=== PATIENT | male | born 1995 | race Caucasian/White ===

== ENCOUNTER 2017-04-12 18:25 | Emergency (ER) | payer OTHER ==
[~2017-04-12] VITALS: Ht 170.2 cm; Wt 65.3 kg
[~2017-04-12 18:25] MED LIST: ATV5 PO; RISP0.5T4 PO; RSP2 PO
[2017-04-12 18:27] VITALS: TEMP 36.8; Ht 170.2 cm; Wt 65.3 kg
--- NOTE | 2017-04-12 18:47 | EMERGENCY ROOM VISIT NOTE ---
History Report prepared by Jeovanny: Jerel Torrez Under the Supervision of: Dr. Reji Kamara D.O. First contact with patient: 18:31 Chief Complaint: MENTAL HEALTH EVALUATION Stated Complaint: MENTAL HEALTH ISSUES History of Present Illness The patient is a 22 year old male who presents to the Emergency Room with complaints of worsening depression over the past 4 weeks. He states that he was seen here in October of 2015 for an attempt at hurting himself. He states that he used a scissor to cut his arm open. The patient says that he then went back to [facility] for a year, and was seen at a facility twice there. He states that he then came back to [place] in December of this year, and was fine until January, but then his depression came back and worsened. He says that over past month, his depression has been severe. The patient notes that he does not want to go down the path of wanting to hurt himself again, so he decided to come here. He says that recently, he has not done anything and has not done anything productive. He stays at home and does nothing, and even turns off his cell phone so nobody call him. 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 He adds that he has not taken a medication for depression this year. He notes that he was told to go to [facility], but chose not to go. The patient says he has no prior surgical history. He smokes cigarettes, drinks occasional alcohol, and uses marijuana. Source of History: patient Onset: Over past month Position: other (global - depression) Symptom Intensity: not doing anything Quality: other (not wanting to hurt himself currently) Timing: worsening Note: No other associated symptoms noted. Review of Systems See HPI for pertinent positives & negatives. A total of 10 systems reviewed and were otherwise negative. Past Medical & Surgical Medical Problems: (1) Mood disorder Family History Patient reports no known family medical history. Social History Smoking Status: Current Every Day Smoker Alcohol Use: occasionally Drug Use: marijuana Marital Status: single Occupation Status: [employer] student Current/Historical Medications No Active Prescriptions or Reported Meds Allergies Coded Allergies: No Known Allergies (Unverified , 04/12/17) Physical Exam Vital Signs Date Time Temp Pulse Resp B/P (MAP) Pulse Ox O2 Delivery O2 Flow Rate FiO2 04/12/17 18:27 36.8 88 18 122/76 100 Room Air Physical Exam GENERAL: Patient is awake, alert, non anxious appearing. Uncomfortable. EYES: The conjunctivae are clear. The pupils are round and reactive. EARS, NOSE, MOUTH AND THROAT: The nose is without any evidence of any deformity. Mucous membranes are moist tongue is midline NECK: The neck is nontender and supple. RESPIRATORY: Normal respiratory effort is noted there is no evidence of wheezing rhonchi or rales CARDIOVASCULAR: Regular rate and rhythm noted there no murmurs rubs or gallops normal S1 normal S2 GASTROINTESTINAL: The abdomen is soft. Bowel sounds are present in all quadrants. Abdomen is nontender MUSCULOSKELETAL/EXTREMITIES: There is no evidence of gross deformity full range of motion is noted in the hips and shoulders SKIN: There is no obvious evidence of any rash. There are no petechiae, pallor or cyanosis noted. NEUROLOGIC: Patient is awake alert and oriented x3 strength is symmetric patellar reflexes are 2+ bilaterally PSYCH: Affect was flat. Patient currently denying any homicidal or suicidal ideations. Patient does feel safe at home. Medical Decision & Procedures ED Course 1833: The patient was evaluated in room A6. A complete history and physical examination were performed. 1930: I talked to the psych correctional case manager, who says that the patient is ready to go home. He will be discharged. Medical Decision Differential diagnosis: Etiologies such as mood disorder, infection, hypoglycemia, electrolyte abnormalities, cardiac sources, intracerebral event, toxicologic, neurologic, as well as others were entertained. Medication Reconcilliation Current Medication List: was personally reviewed by me Blood Pressure Screening Patient's blood pressure: Normal blood pressure Impression Primary Impression: Depression Scribe Attestation The scribe's documentation has been prepared under my direction and personally reviewed by me in its entirety. I confirm that the note above accurately reflects all work, treatment, procedures, and medical decision making performed by me. Departure Information Dispostion Home / Self-Care Prescriptions No Active Prescriptions or Reported Meds Referrals No Doctor, Assigned (PCP) [facility] Forms HOME CARE DOCUMENTATION FORM, IMPORTANT VISIT INFORMATION, School Instructions, Work Instructions Patient Instructions Depression Causes, ED Depression, My [facility] Additional Instructions Follow-up with your therapist as scheduled. Call crisis or return to emergency department immediately if symptoms worsen or if the need arises. Problem Qualifiers Primary Impression: Depression Depression Type: unspecified Qualified Codes: F32.9 - Major depressive disorder, single episode, unspecified
[2017-04-12 20:00] VITALS: BP 105/65; PULSE 89; O2SAT 97
== END 2017-04-12 20:00 | disposition home or self-care (01) ==
LOC: C.EDB 18:26 → C.EDA 20:00
DX: F32.9 Major depressive disorder, single episode, unspecified (principal); F17.210 Nicotine dependence, cigarettes, uncomplicated

== ENCOUNTER 2019-10-21 18:05 | Inpatient (IN) ==
[2019-10-21] MEDS ORDERED: HALOPERIDOL LACTATE 5 MG/ML 1 ML VIAL IM STA (18:17)
[2019-10-21] MEDS ORDERED: LORazepam 2 MG/ML VIAL (IM USE) IM STA (18:17)
[2019-10-21] MEDS ORDERED: LORazepam 2 MG/ML VIAL (IM USE) ONE (18:20)
[2019-10-21 18:30] LABS: Appearance Urine Clear (Clear); Bilirubin Urine Negative (Negative); Blood Urine Trace (Negative); Color Urine Yellow; Glucose Urine UA Negative (Negative); Ketones Urine Trace (Negative); Leukocyte Esterase Urine Negative (Negative); Nitrite Urine Negative (Negative); Protein Urine Negative (Negative); Urobilinogen Urine Negative (Negative); pH Urine 6.5 (4.5-7.5)
[2019-10-21 18:42] LABS: Basophils # (auto) 0.03 K/uL (0-0.2); Basophils % (auto) 0.3 %; Eosinophils # (auto) 0.17 K/uL (0-0.5); Eosinophils % (auto) 1.6 %; Hematocrit (blood only) 40.5 % (42-52); Hemoglobin 13.9 g/dL (14.0-18.0); Immature Granulocytes # (auto) 0.03 K/uL (0.00-0.02); Immature Granulocytes % (auto) 0.3 %; Lymphocytes # (auto) 3.42 K/uL (1.2-3.4); Lymphocytes % (auto) 33.1 %; Mean Corpuscular Hemoglobin 29.1 pg (25-34); Mean Corpuscular Hgb Conc 34.3 g/dL (32-36); Mean Corpuscular Volume 84.9 fL (80-100); Mean Platelet Volume 10.2 fL (7.4-10.4); Monocytes # (auto) 1.19 K/uL (0.11-0.59); Monocytes % (auto) 11.5 %; Neutrophils # (auto) 5.48 K/uL (1.4-6.5); Neutrophils % (auto) 53.2 %; Platelet Count 267 K/uL (130-400); RDW Coefficient of Variation 12.6 % (11.5-14.5); RDW Standard Deviation 39.1 fL (36.4-46.3); Red Blood Count 4.77 M/uL (4.7-6.1); White Blood Count 10.32 K/uL (4.8-10.8)
[2019-10-21 18:45] LABS: Bacteria Urine Automated Negative (Negative); Cast Urine Automated 0 /lpf (0-5); Epithelial Cell Urine Auto 0-5 /lpf (0-5); RBC Urine Automated 0-4 /hpf (0-4); WBC Urine Automated 0 /hpf (0-5)
--- NOTE | 2019-10-21 18:52 | Emergency Department Note ---
Impression & Plan Psychosis, Behavior disturbance ED Provider Note Provider: Johnny Mustafa MD DATE OF SERVICE: 10/21/2019 CHIEF COMPLAINT: Mental health evaluation HISTORY OF PRESENT ILLNESS: Patient is a 24-year-old gentleman history of bipolar 1 psychosis presenting today on a 302 warrant. Patient was seen here earlier today. Petitioned by roommate. Evidently is having erratic behavior. Patient himself is agitated and asking about licenses and license to kill upon my evaluation. He is unable to give a significant additional history. Fixated and tangential in discussion. Patient is agitated upon my exam and uncooperative. Petitioning statement and friend who are available here state that when the patient got home he was at a window discussing whether this is reality or not whether he should jump out to kill himself or not. There is been some compliance issues reported with his medications. This is worsened over the last day or 2. Friend states that he is doing worse since he was brought here involuntarily. There is reported history of similar. REVIEW OF SYSTEMS: Unable obtain to his manic psychosis PAST MEDICAL HISTORY: As noted above MEDICATIONS: Reviewed the medication list available in the computer including lithium SOCIAL HISTORY: Unable obtain to his manic psychotic state PHYSICAL EXAM: GENERAL: Alert standing in the room with security speaking frantically Head: normocephalic and atraumatic EYES: No injection, discharge or icterus. ENT: Mucous membranes pink and moist. LUNGS: Airway patent. No retractions. HEART: Tachycardic rate and rhythm. SKIN: Acyanotic, warm, dry, without rashes EXTREMITIES: Without obvious swelling or deformity. NEUROLOGICAL: No focal deficits. No facial droop or slurred speech. Ambulatory. Psych: Difficult to obtain in interview. Patient is agitated and tangential. Talking about execution is not licensed to kill. I am unable to get him to answer whether he is suicidal or homicidal. Highly animated. HOSPITAL COURSE: 1811 Patient was first seen and H&P performed. Patient agitated and nonparticipant worried exam. Unable to be redirected. 2019 Patient reassessed and updated. Patient was still asking about seeing the execution her and while more calm with nonsensical and tangential. 2334 patient is been accepted to [facility] further inpatient care and involuntary admission. Patient's laboratory studies and imaging reviewed. Differential includes Mood disorder, infection, hypoglycemia, electrolyte abnormalities, cardiac sources, intracerebral event, toxicologic, trauma, neurologic, as well as other pathologies. IMPRESSION/MEDICAL DECISION MAKING: Patient presents for mental health evaluation on a 302 warrant. Patient agitated and highly tangential. Appears psychotic and unable to be redirected. To allow for examination and evaluation for both patient and staff safety received Ativan and Haldol for sedation and restraint. Medical clearance was completed. Labs were otherwise reassuring. Patient is unable to participate significantly in the exam and he states that he wants to leave. I will uphold the 302 petition especially given his history and current state. Patient is a smoker and did request the [facility] initially. They have no beds. Referral was made to [facility] and accepted there for further care. DIAGNOSIS: Psychosis, involuntary medical commitment, behavioral disturbance DISPOSITION: Psychiatric care in Critical Care I have personally spent 34 minutes of critical care time in the direct management of this patient. This includes bedside care, interpretation of diagnostic studies, and testing, discussion with consultants, patient, and family members, and other required patient management activities. These 34 minutes is in excess of all separately billable procedures. Past Med/Surg History Social History (System 10/21/19 @ 18:37 by Sherif Esteban) Feels Safe at Home: Yes Smoking Status: Current every day smoker Tobacco Type: cigarettes ; Allergies Allergies Allergy/AdvReac Type Severity Reaction Status Date / Time No Known Allergies Allergy Verified 10/21/19 18:37 Home Meds Home Medications Medication Instructions Recorded Confirmed lithium carbonate 300 mg PO BID 10/21/19 10/21/19 lithium carbonate 300 mg PO BID 10/21/19 10/21/19 risperidone 1 mg PO BID 10/21/19 10/21/19 risperidone 1 mg PO BID 10/21/19 10/21/19 Results & Data (ED) Vital Signs Vital Signs - 24 hr 10/21/19 18:07 10/21/19 23:37 Temperature 37.3 C Temperature Source Oral Pulse Rate 112 H 78 Respiratory Rate 18 20 Blood Pressure 117/74 128/86 Blood Pressure Mean 88 Pulse Oximetry 99 99 Oxygen Delivery Method Room Air Room Air Sepsis Recent Fever Within 48 Hours No Sepsis Action Taken by Nursing No Action Required Laboratory Data Result diagrams: 10/21/19 18:27 10/21/19 18:27 Lab Results 06/20/20 06/20/20 06/20/20 Range/Units 18:09 18:09 18:27 WBC 10.32 (4.8-10.8) K/uL RBC 4.77 (4.7-6.1) M/uL Hgb 13.9 L (14.0-18.0) g/dL Hct 40.5 L (42-52) % MCV 84.9 (80-100) fL MCH 29.1 (25-34) pg MCHC 34.3 (32-36) g/dL RDW Std Deviation 39.1 (36.4-46.3) fL RDW Coeff of Giselle 12.6 (11.5-14.5) % Plt Count 267 (130-400) K/uL MPV 10.2 (7.4-10.4) fL Immature Gran % (Auto) 0.3 % Neut % (Auto) 53.2 % Lymph % (Auto) 33.1 % [place] % (Auto) 11.5 % Eos % (Auto) 1.6 % Baso % (Auto) 0.3 % Immature Gran # (Auto) 0.03 H (0.00-0.02) K/uL Neut # (Auto) 5.48 (1.4-6.5) K/uL Lymph # (Auto) 3.42 H (1.2-3.4) K/uL [place] # (Auto) 1.19 H (0.11-0.59) K/uL Eos # (Auto) 0.17 (0-0.5) K/uL Baso # (Auto) 0.03 (0-0.2) K/uL Sodium (136-145) mmol/L Potassium (3.5-5.1) mmol/L Chloride (98-107) mmol/L Carbon Dioxide (21-32) mmol/L Anion Gap (3-11) BUN (7-18) mg/dl Creatinine (0.6-1.4) mg/dl Est Cr Clr Drug Dosing ml/min Est GFR ( Amer) Est GFR (Non-Af Amer) BUN/Creatinine Ratio (10-20) Glucose (70-99) mg/dl Calcium (8.5-10.1) mg/dl Total Bilirubin (0.2-1) mg/dl AST (15-37) U/L ALT (12-78) U/L Alkaline Phosphatase (45-117) U/L Total Protein (6.4-8.2) gm/dl Albumin (3.4-5.0) gm/dl Globulin (2.5-4.0) gm/dl Albumin/Globulin Ratio (0.9-2) TSH (0.300-4.500) uIu/ml Urine Color Yellow Urine Appearance Clear (Clear) Urine pH 6.5 (4.5-7.5) Ur Specific [place] 1.010 (1.000-1.030) Urine Protein Negative (Negative) Urine Glucose (UA) Negative (Negative) Urine Ketones Trace H (Negative) Urine Blood Trace H (Negative) Urine Nitrite Negative (Negative) Urine Bilirubin Negative (Negative) Urine Urobilinogen Negative (Negative) Ur Leukocyte Esterase Negative (Negative) Urine WBC (Auto) 0 (0-5) /hpf Urine RBC (Auto) 0-4 (0-4) /hpf U Hyaline Cast (Auto) 0 (0-5) /lpf U Epithel Cells (Auto) 0-5 (0-5) /lpf Urine Bacteria (Auto) Negative (Negative) Salicylates (2.8-20) mg/dl Urine Opiates Screen Neg (Neg) Ur Methadone, Qual Neg (Neg) Acetaminophen (10-30) ug/ml Urine Barbiturates Neg (Neg) Ur Phencyclidine (PCP) Neg (Neg) U Amphetamin/Meth Scrn Neg (Neg) MDMA (Ecstasy) Screen Neg (Neg) U Benzodiazepines Scrn Neg (Neg) [place] (0.6-1.2) mmol/L Ur Cocaine Metabolite Neg (Neg) U Marijuana (THC) Screen Neg (Neg) Ethyl Alcohol mg/dL (0-3) mg/dl 10/21/19 10/21/19 10/21/19 Range/Units 18:27 18:27 18:27 WBC (4.8-10.8) K/uL RBC (4.7-6.1) M/uL Hgb (14.0-18.0) g/dL Hct (42-52) % MCV (80-100) fL MCH (25-34) pg MCHC (32-36) g/dL RDW Std Deviation (36.4-46.3) fL RDW Coeff of Giselle (11.5-14.5) % Plt Count (130-400) K/uL MPV (7.4-10.4) fL Immature Gran % (Auto) % Neut % (Auto) % Lymph % (Auto) % [place] % (Auto) % Eos % (Auto) % Baso % (Auto) % Immature Gran # (Auto) (0.00-0.02) K/uL Neut # (Auto) (1.4-6.5) K/uL Lymph # (Auto) (1.2-3.4) K/uL [place] # (Auto) (0.11-0.59) K/uL Eos # (Auto) (0-0.5) K/uL Baso # (Auto) (0-0.2) K/uL Sodium 136 (136-145) mmol/L Potassium 3.4 L (3.5-5.1) mmol/L Chloride 103 (98-107) mmol/L Carbon Dioxide 23 (21-32) mmol/L Anion Gap 10.0 (3-11) BUN 16 (7-18) mg/dl Creatinine 1.00 (0.6-1.4) mg/dl Est Cr Clr Drug Dosing 99.0 ml/min Est GFR ( Amer) 119.9 Est GFR (Non-Af Amer) 103.4 BUN/Creatinine Ratio 16.2 (10-20) Glucose 90 (70-99) mg/dl Calcium 9.4 (8.5-10.1) mg/dl Total Bilirubin 0.9 (0.2-1) mg/dl AST 23 (15-37) U/L ALT 21 (12-78) U/L Alkaline Phosphatase 55 (45-117) U/L Total Protein 8.9 H (6.4-8.2) gm/dl Albumin 4.8 (3.4-5.0) gm/dl Globulin 4.1 H (2.5-4.0) gm/dl Albumin/Globulin Ratio 1.2 (0.9-2) TSH 1.080 (0.300-4.500) uIu/ml Urine Color Urine Appearance (Clear) Urine pH (4.5-7.5) Ur Specific [place] (1.000-1.030) Urine Protein (Negative) Urine Glucose (UA) (Negative) Urine Ketones (Negative) Urine Blood (Negative) Urine Nitrite (Negative) Urine Bilirubin (Negative) Urine Urobilinogen (Negative) Ur Leukocyte Esterase (Negative) Urine WBC (Auto) (0-5) /hpf Urine RBC (Auto) (0-4) /hpf U Hyaline Cast (Auto) (0-5) /lpf U Epithel Cells (Auto) (0-5) /lpf Urine Bacteria (Auto) (Negative) Salicylates 2.3 L (2.8-20) mg/dl Urine Opiates Screen (Neg) Ur Methadone, Qual (Neg) Acetaminophen < 2 L (10-30) ug/ml Urine Barbiturates (Neg) Ur Phencyclidine (PCP) (Neg) U Amphetamin/Meth Scrn (Neg) MDMA (Ecstasy) Screen (Neg) U Benzodiazepines Scrn (Neg) [place] 0.5 L (0.6-1.2) mmol/L Ur Cocaine Metabolite (Neg) U Marijuana (THC) Screen (Neg) Ethyl Alcohol mg/dL < 3.0 (0-3) mg/dl Administered Medications Discontinued Medications Haloperidol Lactate (Haldol) 5 mg IM NOW STA Stop: 10/21/19 18:18 Last Admin: 10/21/19 18:25 Dose: 5 mg Documented by: [id number] Lorazepam (Ativan) 2 mg IM NOW STA Stop: 10/21/19 18:18 Last Admin: 10/21/19 18:25 Dose: 2 mg Documented by: [id number] Lorazepam (Ativan) Confirm Administered Dose 2 mg .ROUTE .STK-MED ONE Stop: 10/21/19 18:21 Last Admin: 10/21/19 18:26 Dose: Not Given Documented by: [id number] Discharge Plan Visit Data Chief Complaint: Mental Health Evaluation Stated Complaint: MENTAL HEALTH EVAL ED Provider: Johnny Mustafa Discharge Problem: Psychosis, Behavior disturbance Discharge Instructions Interventions: ED Discharge Assessment Last Done: 10/21/19 23:37 Discharge Problem: Psychosis Qualifiers: Psychosis type: unspecified psychosis type Qualified Code(s): F29 - Unspecified psychosis not due to a substance or known physiological condition
[2019-10-21 18:54] LABS: Amphetamines+Metham, Urine Neg (Neg); Barbiturates, Urine Neg (Neg); Benzodiazepine, Urine Neg (Neg); Cocaine, Urine Neg (Neg); MDMA (Ecstacy), Urine Neg (Neg); Methadone, Urine Neg (Neg); Opiate, Urine Neg (Neg); Phencyclidine, Urine Neg (Neg)
[2019-10-21 19:02] LABS: Albumin Level 4.8 gm/dl (3.4-5.0); BUN Creatinine Ratio 16.2 (10-20); Calcium 9.4 mg/dl (8.5-10.1); Est GFR (African American) 119.9; Est GFR (Non-African American) 103.4; Potassium 3.4 mmol/L (3.5-5.1)
[2019-10-21 19:12] LABS: Albumin Globulin Ratio 1.2 (0.9-2); Bilirubin,Total 0.9 mg/dl (0.2-1); Globulin 4.1 gm/dl (2.5-4.0); Thyroid Stimulating Hormone 1.08 uIu/ml (0.300-4.500); Total Protein 8.9 gm/dl (6.4-8.2)
[2019-10-21 19:26] LABS: Acetaminophen < 2 ug/ml (10-30); Lithium 0.5 mmol/L (0.6-1.2); Salicylate 2.3 mg/dl (2.8-20)
[2019-10-21] MEDS ORDERED: BISMUTH SUBSALICYLATE PER ML OMNICELL CHARGE PO PRN (23:15)
[2019-10-21] MEDS ORDERED: ALUMINUM/MAGNESIUM SUSP 30 ML UDC PO PRN (23:15)
[2019-10-21] MEDS ORDERED: SODIUM CHLORIDE 0.65% NA SOLN 45 ML (OCEAN) PRN (23:15)
[2019-10-21] MEDS ORDERED: ACETAMINOPHEN 325 MG TAB PO PRN (23:15)
[2019-10-21] MEDS ORDERED: MAGNESIUM HYDROXIDE SUSP 30 ML UDC PO PRN (23:15)
[2019-10-21] MEDS ORDERED: HALOPERIDOL LACTATE 5 MG/ML 1 ML VIAL IM PRN (23:17)
[2019-10-21] MEDS ORDERED: haloperidoL 5 MG TAB PO PRN (23:17)
[2019-10-21] MEDS ORDERED: LORazepam 2 MG/ML VIAL (IM USE) IM PRN (23:18)
[2019-10-21] MEDS ORDERED: BENZTROPINE MESYLATE 1 MG TAB PO PRN (23:21)
[2019-10-22] MEDS: LORazepam 1 MG TAB PO PRN (08:03)
[2019-10-22] MEDS ORDERED: NICOTINE 7 MG/24 HR TDSY TD SCH (09:00)
--- NOTE | 2019-10-22 09:11 | History & Physical ---
Date of Service October 22, 2019 Impression / Recommendations Impression 24-year-old male admitted involuntarily for inpatient psychiatric treatment on 10/21/2019 after presenting to the ED with disorganized thoughts and demonstrating bizarre behaviors. Friend brought patient to the ED and was safety planned home, but rapidly returned to the ED within hours. Petitioning statement was completed by friend and patient was brought to the ED on a 302 warrant. Pt initially reported minimal compliance with medication when in the ED, but lithium level was 0.5 in the ED and he is now stating he has been compliant. We discussed continuing his home medications at this time, which he was agreeable with and has already willingly taking lithium without incident. Will attempt to gather collateral information from his outpatient psychiatric provider and the [facility] where he was most recently hospitalized. It would be ideal for patient to be on an ALCALA given history of noncompliance, and we will explore the possibility of this further. Once appropriate to participate, patient will be encouraged to attend group programming. We will engage patient in meetings with Student Care and Advocacy to discuss academic standing. Pt would benefit again from a casework manager, as he had these services in the past. Pt remains very disorganized, tangential, and is demonstrating looseness of association. His manic behavior increases his risk of harm to self and others, and inpatient psychiatric treatment is medically necessary at this time. Dr. Barb Root was directly involved in review and discussion of the patient's case and participated in medical decision making regarding treatment recommendations. (1) Bipolar disorder, current episode manic severe with psychotic features: 10/21 - Diagnosis of bipolar I disorder, most recently prescribed risperidone 1mg BID and lithium 300mg BID. Pt admits to poor compliance with medications, though lithium level in ED was 0.5 which demonstrates some level of medication administration. Will resume these medications initially, recheck lithium level in 5 days. Will have risperidone 0.5mg available q4h prn for psychosis/agitation. - Pt demanding to leave, stating he does not need to be here. He is very disorganized at this time and demonstrating looseness of associations. - Admitted involuntarily for psychiatric treatment - 302 expires on 10/26/2019 at 1933 - Coordinate care with outpatient providers; medications most recently prescribed at [place] by Tari Brasher PA-C - Coordinate with the [facility] and patient's friend to gather collateral information - Will encourage attendance of group programming once patient is able to demonstrate appropriateness (2) Nonadherence to medication: 10/21 - Resume doses of home medications - Pt would be an ideal candidate for an ALCALA - Recommend referral for case management services given significant mental health history and frequent hospitalizations (3) Cannabis abuse: 10/21 - Historical diagnosis of cannabis abuse, though patient states he has not smoked cannabis in 2-3 months - UDS negative for THC in the ED Risk Factors Assessment Male: Yes Mental Health Diagnoses: Yes Substance Use Disorders: Yes Previous Psychiatric Hospitalization: Yes Smoker: Yes Protective Factors Assessment : No Responsible for Young Children: No Employed: No Supportive Family: No (living in [facility]) Psychiatric History Identifying Data NOMAN MOMIN is a 24-year-old M who currently lives in [place] in close proximity to a friend. Pt was brought to the ED earlier in the day, and was safety planned home with a friend. Pt has a history of bipolar disorder with history of poor medication compliance, and was admitted on 10/21/19 23:15 on a 302 involuntary commitment for disorganized thoughts and mitra, having reportedly verbalizing to his friend that he was considering whether or not to jump from a window. Chief Complaint "I do what I am doing. 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 Patient presented to the ED the day of admission with a close friend reporting concerns related to patient's bizarre behavior. Despite verbalizing concern, this friend was unwilling to complete a petitioning statement and the patient was unwilling to remain in the hospital or consider psychiatric treatment. As there was discrepancy between the patient's report and the reports of this friend, patient was ultimately safety plan home with this friend. ED documentation suggests the patient had verbalized thoughts to jump from a window when he returned home, contemplating whether or not he should kill himself. Friend was again concerned with this behavior and patient returned to the ED on a 302 warrant. Pt was reportedly agitated in the ED and did receive haloperidol and lorazepam. He is reportedly irritable and loud on our unit this morning and is reportedly demonstrating inappropriate boundaries. Pt had difficulty with psychiatric evaluation, as he continues to be tangential and demonstrates loose associations. He begins our conversation by telling this provider "I do what I am doing. I feel like a hypocrite." When asked why he feels this way, the patient begins talking about the Beatles and [employer]anning [employer], reporting that [place] was killed by someone from his fan club and inquires "why would someone from his fan club murder him?" Pt then begins speaking about the Catcher in the [place], and becomes rather frustrated stating "what is the rye? I don't know what the rye is." This provider informed the patient that is sounded as though he was experiencing some deep thoughts and wondered if these two ideas were related. The patient responded with "I try to solve problems of existential crisis. I know the difference between transcendentalism and existentialism." He then abruptly changes the subject and asks, "Why are you doing this? You know this is torture for me. I don't want to commit suicide. Do I look like someone who wants to commit suicide. I did not leave a note. I've learned all my life lessons from [place]. If there is light in your life, you follow it." Pt was asked if he believes he is having difficulty keeping his thoughts straight, and rapidly responds by stating "I am straight!" Pt begins talking about feeling uncomfortable, and then compares himself to bunnies - "Bunny scared, eats grass, jumps. Bunny scared, eats grass, jumps. Bunny scared, eats grass jumps. Bunny likes grass, I given them grass, I like grass, I use it to calm my mind. Marijuana helps my thoughts." Pt states he has not smoked marijuana in 2-3 months. This provider attempted to discuss medications with the patient, who informs this provider that "I don't like lithium. It is a pure chemical on the periodic table. So is mercury. And mercury is bad. How is lithium good." He is now reporting that he is compliant with his medications "nearly all of the time." He does report feeling that "olanzapine was better" than the risperidone he was most recently prescribed, but is unable to provide any explanation as to why he feels this way, stating only "I can't say." Pt was asked about hallucinations and states "I don't see and I don't hear. I see what I see, and I hear what I hear. Then I speak, but first I smell." Pt demanded to know when he would be released, informing this provider that he is scheduled to move to a new apartment in a few days. When asked if patient had any concerns at this time, he states "I have only one concern, that I don't want to be stuck here." He denies other needs at this time. Past Psychiatric History Current Psychiatric Diagnosis: Bipolar I Disorder Outpatient Services: Psychiatric Prescriber - [facility] - Tari Brasher PA-C Previous Psych Admissions: [facility] - 08/2019 [facility] - , 08/2018 and 10/2018 Previously reported 2 psychiatric hospitalizations in [facility] before coming to the in 2014 History of Previous Suicide Attempt: Yes Describe Attempts in the Past: unable to assess, from last eval he reported wrist cutting in past Past Medication Trials: Includes, but is not limited to: 1. Wahoo 2. Risperdal 3. Haldol 4. Ativan 5. Trazodone 6. Zyprexa Past Head Trauma/Neuro History History of Concussion/Seizure: No Allergies Allergy/AdvReac Type Severity Reaction Status Date / Time No Known Allergies Allergy Verified 10/21/19 18:37 Home Medications Home Medications Medication Instructions Recorded Confirmed Type lithium carbonate 300 mg PO BID 10/21/19 10/21/19 History risperidone 1 mg PO BID 10/21/19 10/21/19 History Family History Family History of: Doesn't Know Family Mental Health History Comment: unable to assess at this time due to patients cognitive status Alcohol History Hx of Alcohol Use Over the Past 12 Months: Yes (1x weekly) Smoking Use Have You Smoked or Used Tobacco Products in the Last 30 Days: Yes tobacco type: cigarettes Smoking Status: Current every day smoker Smoking packs per day: 0.25 Substance History Hx of Prescription Med Misuse Over the Past 12 Months: No Hx of Over the Counter Med Misuse Over the Past 12 Months: No Hx of Inhalent Misuse Over the Past 12 Months: No Hx of Organic Substance Use Over the Past 12 Months: No Hx of Illegal Substances/Street Drug Use Over Past 12 Months: No Problems as a Result of Past Substance Use: None Identified UDS negative. Pt reports history of marijuana and cocaine, last used marijuana 2-3 months ago. Personal History Living Arrangements: Apartment Highest Grade Completed: Graduate School Employment Status: Student Marital Status: Single Number Of Children: None Hx Legal Problems: Yes (incarcerated for 2 days, broke into friend's apartment ) Patient History Medical History Bipolar disorder, current episode manic severe with psychotic features Surgical History No pertinent past surgical history Social History Preferred Language: [place] Communication Ability: Effective Feels Safe at Home: Yes Smoking Status: Current every day smoker Tobacco Type: cigarettes ; Review of Systems Review of Systems: Constitutional: denied Cardiovascular: denied Respiratory: denied Gastrointestinal: denied Genitourinary: reports "gentlemen problems", inability to obtain erection Neurological: denied Musculoskeletal: reports low back pain Psychiatric: denies symptoms other than stated above Total of at least 10 systems reviewed, pertinent positives as above and in HPI. Physical Exam Psychiatric: Orientation: alert, oriented to person, oriented to place and + guarded (uncooperative and argumentative ) Apperance: appropriately dressed, + disheveled and appeared stated age Thin-appearing male, casually dressed in a t-shirt and scrub pants. Pt Eye Contact: + fair eye contact Motor Behavior: + psychomotor agitation (appearing restless) Speech: + pressured speech (rapid, angry tone - thick accent) Affect: + irritable affect and mood congruent with affect Mood: + angry mood Thought Process: + tangential thought process, + flight of ideas, + looseness of associations and + perseveration Thought Content: + preoccupation (with discharge, feels he was wrongfully admitted ) and + persecution Suicidal Thoughts: denies suicidal thoughts and denies suicidal intent Homicidal Thoughts: denies homicidal thoughts Hallucinations: no auditory hallucinations and no visual hallucinations Cognition: language grossly intact; + recent memory not intact and + attention not intact Estimated Intelligence: consistent with education level Insight: + impaired insight Judgement: + impaired judgement Vital Signs (Past 24 Hours): Last Vital Signs Temp 36.5 C 10/22/19 06:30 Pulse 85 10/22/19 06:31 Resp 18 10/22/19 06:30 BP 117/80 10/22/19 06:31 Pulse Ox 99 10/21/19 23:37 Exam Statement: A physical exam was performed in the ER prior to admission to the unit by Dr. Johnny Mustafa MD. I accept that physical as correct/medical clearance for the inpatient physical exam. Results & Data ([facility]) Laboratory Results Laboratory Results - last 24 hr 10/21/19 10/21/19 10/21/19 18:09 18:09 18:27 WBC 10.32 RBC 4.77 Hgb 13.9 L Hct 40.5 L MCV 84.9 MCH 29.1 MCHC 34.3 RDW Std Deviation 39.1 RDW Coeff of Giselle 12.6 Plt Count 267 MPV 10.2 Immature Gran % (Auto) 0.3 Neut % (Auto) 53.2 Lymph % (Auto) 33.1 Shelby % (Auto) 11.5 Eos % (Auto) 1.6 Baso % (Auto) 0.3 Immature Gran # (Auto) 0.03 H Neut # (Auto) 5.48 Lymph # (Auto) 3.42 H Shelby # (Auto) 1.19 H Eos # (Auto) 0.17 Baso # (Auto) 0.03 Sodium Potassium Chloride Carbon Dioxide Anion Gap BUN Creatinine Est Cr Clr Drug Dosing Est GFR ( Amer) Est GFR (Non-Af Amer) BUN/Creatinine Ratio Glucose Calcium Total Bilirubin AST ALT Alkaline Phosphatase Total Protein Albumin Globulin Albumin/Globulin Ratio TSH Urine Color Yellow Urine Appearance Clear Urine pH 6.5 Ur Specific Arnot 1.010 Urine Protein Negative Urine Glucose (UA) Negative Urine Ketones Trace H Urine Blood Trace H Urine Nitrite Negative Urine Bilirubin Negative Urine Urobilinogen Negative Ur Leukocyte Esterase Negative Urine WBC (Auto) 0 Urine RBC (Auto) 0-4 U Hyaline Cast (Auto) 0 U Epithel Cells (Auto) 0-5 Urine Bacteria (Auto) Negative Salicylates Urine Opiates Screen Neg Ur Methadone, Qual Neg Acetaminophen Urine Barbiturates Neg Ur Phencyclidine (PCP) Neg U Amphetamin/Meth Scrn Neg MDMA (Ecstasy) Screen Neg U Benzodiazepines Scrn Neg Wahoo Ur Cocaine Metabolite Neg U Marijuana (THC) Screen Neg Ethyl Alcohol mg/dL 10/21/19 10/21/19 10/21/19 18:27 18:27 18:27 WBC RBC Hgb Hct MCV MCH MCHC RDW Std Deviation RDW Coeff of Giselle Plt Count MPV Immature Gran % (Auto) Neut % (Auto) Lymph % (Auto) Shelby % (Auto) Eos % (Auto) Baso % (Auto) Immature Gran # (Auto) Neut # (Auto) Lymph # (Auto) Shelby # (Auto) Eos # (Auto) Baso # (Auto) Sodium 136 Potassium 3.4 L Chloride 103 Carbon Dioxide 23 Anion Gap 10.0 BUN 16 Creatinine 1.00 Est Cr Clr Drug Dosing 99.0 Est GFR ( Amer) 119.9 Est GFR (Non-Af Amer) 103.4 BUN/Creatinine Ratio 16.2 Glucose 90 Calcium 9.4 Total Bilirubin 0.9 AST 23 ALT 21 Alkaline Phosphatase 55 Total Protein 8.9 H Albumin 4.8 Globulin 4.1 H Albumin/Globulin Ratio 1.2 TSH 1.080 Urine Color Urine Appearance Urine pH Ur Specific Arnot Urine Protein Urine Glucose (UA) Urine Ketones Urine Blood Urine Nitrite Urine Bilirubin Urine Urobilinogen Ur Leukocyte Esterase Urine WBC (Auto) Urine RBC (Auto) U Hyaline Cast (Auto) U Epithel Cells (Auto) Urine Bacteria (Auto) Salicylates 2.3 L Urine Opiates Screen Ur Methadone, Qual Acetaminophen < 2 L Urine Barbiturates Ur Phencyclidine (PCP) U Amphetamin/Meth Scrn MDMA (Ecstasy) Screen U Benzodiazepines Scrn Wahoo 0.5 L Ur Cocaine Metabolite U Marijuana (THC) Screen Ethyl Alcohol mg/dL < 3.0 Current Inpatient Medications Current Inpatient Medications: Current Inpatient Medications Acetaminophen (Tylenol) 650 mg PO Q4H PRN PRN Reason: Headache or Minor Fever Stop: 11/20/19 23:14 Al Hydrox/Mg Hydrox/Simethicone (Maalox) 30 ml PO Q4H PRN PRN Reason: GI Upset Stop: 11/20/19 23:14 Benztropine Mesylate (Cogentin) 1 mg PO Q6H PRN PRN Reason: dystonia Stop: 11/20/19 23:20 Bismuth Subsalicylate (Kaopectate) 15 ml PO PRN PRN PRN Reason: Loose Stool Stop: 11/20/19 23:14 Haloperidol (Haldol) 5 mg PO Q4H PRN PRN Reason: agitation r/t psychosis Stop: 11/20/19 23:16 Last Admin: 10/22/19 08:03 Dose: 5 mg Documented by: Haloperidol Lactate (Haldol) 5 mg IM Q4H PRN PRN Reason: Agitation Stop: 11/20/19 23:16 Hydroxyzine HCl (Vistaril) 50 mg PO HSZ PRN PRN Reason: Insomnia Stop: 11/20/19 23:14 Hydroxyzine HCl (Vistaril) 25 mg PO Q4H PRN PRN Reason: Anxiety Stop: 11/20/19 23:14 Lorazepam (Ativan) 2 mg IM Q4H PRN PRN Reason: Agitation Stop: 11/20/19 23:17 Lorazepam (Ativan) 1 mg PO Q4H PRN PRN Reason: Anxiety/Agitation Stop: 11/20/19 23:19 Last Admin: 10/22/19 08:03 Dose: 1 mg Documented by: Magnesium Hydroxide (Milk Of Magnesia) 30 ml PO DAILY PRN PRN Reason: Constipation Stop: 11/20/19 23:14 Miscellaneous (Remove Nicoderm Patch) 1 ea N/A DAILY@[id number] [facility] Stop: 11/22/19 08:58 Nicotine (Nicoderm Cq) 7 mg TD QAM [facility] Stop: 11/21/19 08:59 Nicotine Polacrilex (Nicorette 2mg) 1 piece MT Q1H PRN PRN Reason: Nicotine Withdrawal Stop: 11/21/19 08:40 Sodium Chloride ([place] Nasal) 1 - 2 sprays NA PRN PRN PRN Reason: Nasal Dryness/Congestion Stop: 11/20/19 23:14
[2019-10-22] MEDS ORDERED: risperiDONE 0.5 MG TABLET PO PRN (09:14)
[2019-10-22] MEDS: LITHIUM CARBONATE 300 MG TAB PO SCH ×2 (10:33→21:18)
[2019-10-22] MEDS: NICOTINE POLACRILEX 2 MG GUM MT PRN ×6 (11:35→21:20)
[2019-10-22] MEDS: risperiDONE 1 MG TABLET PO SCH (21:18)
[2019-10-23] MEDS: NICOTINE POLACRILEX 2 MG GUM MT PRN ×5 (07:05→20:33)
[2019-10-23] MEDS: LITHIUM CARBONATE 300 MG TAB PO SCH ×2 (08:44→21:50)
[2019-10-23] MEDS: risperiDONE 1 MG TABLET PO SCH ×2 (08:44→21:50)
[2019-10-23] MEDS: NICOTINE 14 MG/24 HR PATCH TD SCH ×2 (08:44→09:10)
--- NOTE | 2019-10-23 10:44 | Psychiatric Progress Note ---
Date of Service October 23, 2019 Impression / Recommendations Impression 24-year-old male admitted involuntarily for inpatient psychiatric treatment on 10/21/2019 after presenting to the ED with disorganized thoughts and demonstrating bizarre behaviors. Friend brought patient to the ED and was safety planned home, but rapidly returned to the ED within hours. Petitioning statement was completed by friend and patient was brought to the ED on a 302 warrant. Pt initially reported minimal compliance with medication when in the ED, but lithium level was 0.5 in the ED and he is now stating he has been compliant. We discussed continuing his home medications at this time, which he was agreeable with and has already willingly taking lithium without incident. Will attempt to gather collateral information from his outpatient psychiatric provider and the [facility] where he was most recently hospitalized. It would be ideal for patient to be on an [facility] given history of noncompliance, and we will explore the possibility of this further. Once appropriate to participate, patient will be encouraged to attend group programming. We will engage patient in meetings with Student Care and Advocacy to discuss academic standing. Pt would benefit again from a rn case mgr, as he had these services in the past. Pt remains very disorganized, tangential, and is demonstrating looseness of association. His manic behavior increases his risk of harm to self and others, and inpatient psychiatric treatment is medically necessary at this time. (1) Bipolar disorder, current episode manic severe with psychotic features: 10/21 - Diagnosis of bipolar I disorder, most recently prescribed risperidone 1mg BID and lithium 300mg BID. Pt admits to poor compliance with medications, though lithium level in ED was 0.5 which demonstrates some level of medication administration. Will resume these medications initially, recheck lithium level in 5 days. Will have risperidone 0.5mg available q4h prn for psychosis/agitation. - Pt demanding to leave, stating he does not need to be here. He is very disorganized at this time and demonstrating looseness of associations. - Admitted involuntarily for psychiatric treatment - 302 expires on 10/26/2019 at 1933 - Coordinate care with outpatient providers; medications most recently prescribed at [facility] by Tari Brasher PA-C - Coordinate with the University and patient's friend to gather collateral information - Will encourage attendance of group programming once patient is able to demonstrate appropriateness 10/22 - continue risperdal and lithium as above with prn haldol as above, [place] level ordered for 10/27/19. Agree with Consideration with [facility] but patient is not able to tolerate that discussion at this time. - pt is on 302 comittment, treatment team and by evaluation LOS estimated to be 7-9days, 302 expires 10/26/19 at 1933, will file for 303 hearing form AM of 10/26/19 as he remains illogical, agitated and unable to function in the community, unable to address safety risks that lead to hospitalization leaving inpatient care as the least restrictive and most appropriate level of care at this time, continue MNPR due to level of agitation and intrusiveness requiring consistent redirection of interpersonal space boundaries - coordinated care with outpt providers, and university, - waiting records from [facility] to see if Fasting metabolic labs more recent than 08/2017 are available, if not FBS and FLipids will need ordered prior to discharge, ideally could be added to 10/27/19 labs if not before (2) Nicotine dependence: 10/22 - continue to offer NRT in form of patch and gum. Patient is pre- contemplational and declines smoking cessation resources at this time. for note he has h/o MJ abuse but UDS negative in ED and he states he has not smoked in 2-3 months, carried forward in this note for future provider knowledge. No action needed at this time. Risk Factors Assessment Male: Yes Mental Health Diagnoses: Yes Substance Use Disorders: Yes Previous Psychiatric Hospitalization: Yes Smoker: Yes Protective Factors Assessment : No Responsible for Young Children: No Employed: No Supportive Family: No (living in [facility]) Interval History Identifying Information ZAY MOMIN is a 24-year-old M who currently lives in [place] in close proximity to a friend. Pt was brought to the ED earlier in the day 10/21/19, and was safety planned home with a friend. Pt has a history of bipolar disorder with history of poor medication compliance, and returned to the ED and admitted on 10/21/19 23:15 on a 302 involuntary commitment for disorganized thoughts and mitra, having reportedly verbalizing to his friend that he was considering whether or not to jump from a window. Chief Complaint "I am needing to smoke and I do not want your gum". Review of Systems Sleep Information Total Hours of Sleep: 4 Sleep Comments: awake at 0300 to get a drink of water and 0425 to get somehting crunchy to eat. he remains to state he wants to leave-he does not need to be here-he has to pack his belongings for moving. Meal Information Percent Meal Consumed - Breakfast: 90 Percent Meal Consumed - Lunch: 50 Percent Meal Consumed - Dinner: 100 Subjective Subjective Patient was seen & assessed and interval progress reviewed with treatment team first. He slept poorly 4 hours up at 445am and not sleeping since. He did take medications last evening and this AM (lithium and Risperdal) but remains agitated moving around the unit walking at times, going back to his room and then to the day room. He is unable to tolerate being in groups becoming tangential with an agitated tone. He remains in a MNPR in the [place] area to allow him space for less stimuli. The patient remains disrupted and scattered when he tries to participate in discussion with staff or in groups. He is to speak with his father in [place] sometime this AM. Met with patient alone first, then at his request with the treatment team to present his Treatment Plan. He agrees to meet in his room first sitting then as he talks about his wish to smoke he spits out his nicotine gum and stands and begins to point his finger as he talks passionately about his wish to smoke and begins to slowly during his soliloquy stand over this provider. He is verbally redirected to move back, but repeats the movement and is redirected but several times to provide space for interpersonal comfort and sense of safety of this provider. He is able to express that he does not agree that he is "incarcerated" in this hospital and that he wanted to go to [facility] so he could take smoke breaks, then states he does not need to be in the hospital. He has some flight of ideas discussing smoking then the need to fly, to not needing treatment. When provider inserts concerns about his statements quoted on the 302 he state "I am not a danger to self, when I slit my writs 4 years ago it was to sacrifice my soul." he cannot tolerate this conversation seeming to become stuck in semantics of his friend's place being called and apartment vs. a "flat" and missing the concern that he was there uninvited, and not addressing the suicidal statements in question He then asks if he can walk around the unit, 'I need to walk while I think...I need something between my eyes on my forehead when I walk and think. I have a unibrow (pointing to his) and you do not." He is unable to discuss difficulties he is having sleeping "I sleep enough" nor is he able to discuss how it feels to try to attend groups. He states "If I don't get to smoke I will kill myself" and several statements about "breaking out of here." With treatment team meeting held also in his room (due to activity room in use by rest of [facility]) he perseverates on wanting to be at the [facility] but then becomes circular in wanting to be there, not in any hospital and not being here. He is adamant he is against being in the hospital. He was informed of his treatment plan reviewed from paper version to include verbally informed that we would be pursuing 303. He is distressed at this and states "I don't want a hearing" and references "a year ago when I jumped off the roof," but does not provide further context for that thought. He does affirm he would like social work to pursue JOEL and possible referral to the [facility]. He does state he is not having stiffness or s/sx of EPS or orthostasis or tremor, Denies feeling drowsy, denies physical pain. He demonstrates his physical agility and wellbeing by jumping up from his bed and jumping up and down 3-4 times and states "you see." He is eating and states he is having regular bowel movements. Physical Exam Psychiatric Orientation: alert, oriented to place and oriented to time he attempts to cooperate but shows some quickness to escalation of tone and physical proximity dressed in t-shirt and hospital scrub pants, hair is clean but uncombed Eye Contact: good eye contact Motor Behavior: + psychomotor agitation (stands, sits then walks around at times wagging his finger towards provider) at times he slowly advances while talking to stand overprovider within 1-2 feet of provider who is sitting voluble speech that he will continue talking unless redirected, he can be redirected for a few moments then derails tangentially again. His speech is spont of regular but persistent rate, rythm, has Palestinian accent, tone ranges from calm to one of agitated pronouncements he is modestly irritable in the form of reactive pronouncements when he dislikes something, but can be calm when talking elevated, expansive modestly irritated mood Thought Process: + tangential thought process, + flight of ideas and + perseveration He does note express delusions or IOR or AVH today but does seem illogical and perseverative leading with affect to express his displeasure Thought Content: + preoccupation he is preoccupied with smoking, he attempts to explain his displeasure with involuntary comittment but derails in his own tangentiality to talking about smoking, outpatinet treatment, flying, taking medications, agreement to go to [facility] while also saying he does not need treatment. Content is notable for poor insight to his own behaviors and speech and tone that indicate he is intrusive and agitated manner, as well as notable for denial/minimization of the behaviors leading to admission, denying making SI statements and unwilling/unable to discuss. he denies at this time he denies at this time denies AVH at this time, does not appear to respond to internal stimuli, but thoughts are illogical and not linear limited concentration as he moves between topics, attention is fair as he remains oriented and engaged with staff when meeting this AM Estimated Intelligence: average estimated intelligence Insight: + impaired insight Judgement: + impaired judgement Vital Signs (Past 24 Hours) Last Vital Signs Temp 36.8 C 10/23/19 06:51 Pulse 99 H 10/23/19 06:52 Resp 18 10/23/19 06:51 BP 112/76 10/23/19 06:52 Pulse Ox 99 10/21/19 23:37 Results & Data ([facility]) Current Inpatient Medications Current Inpatient Medications: Current Inpatient Medications Acetaminophen (Tylenol) 650 mg PO Q4H PRN PRN Reason: Headache or Minor Fever Stop: 11/20/19 23:14 Al Hydrox/Mg Hydrox/Simethicone (Maalox) 30 ml PO Q4H PRN PRN Reason: GI Upset Stop: 11/20/19 23:14 Benztropine Mesylate (Cogentin) 1 mg PO Q6H PRN PRN Reason: dystonia Stop: 11/20/19 23:20 Bismuth Subsalicylate (Kaopectate) 15 ml PO PRN PRN PRN Reason: Loose Stool Stop: 11/20/19 23:14 Haloperidol (Haldol) 5 mg PO Q4H PRN PRN Reason: agitation r/t psychosis Stop: 11/20/19 23:16 Last Admin: 10/22/19 08:03 Dose: 5 mg Documented by: Haloperidol Lactate (Haldol) 5 mg IM Q4H PRN PRN Reason: Agitation Stop: 11/20/19 23:16 Hydroxyzine HCl (Vistaril) 50 mg PO HSZ PRN PRN Reason: Insomnia Stop: 11/20/19 23:14 Hydroxyzine HCl (Vistaril) 25 mg PO Q4H PRN PRN Reason: Anxiety Stop: 11/20/19 23:14 [place] Carbonate ([place] Carbonate) 300 mg PO BID [facility] Stop: 11/21/19 09:14 Last Admin: 10/23/19 08:44 Dose: 300 mg Documented by: Lorazepam (Ativan) 2 mg IM Q4H PRN PRN Reason: Agitation Stop: 11/20/19 23:17 Lorazepam (Ativan) 1 mg PO Q4H PRN PRN Reason: Anxiety/Agitation Stop: 11/20/19 23:19 Last Admin: 10/22/19 08:03 Dose: 1 mg Documented by: Magnesium Hydroxide (Milk Of Magnesia) 30 ml PO DAILY PRN PRN Reason: Constipation Stop: 11/20/19 23:14 Miscellaneous (Remove Nicoderm Patch) 1 ea N/A DAILY@[id number] [facility] Stop: 11/22/19 08:58 Last Admin: 10/23/19 09:10 Dose: Not Given Documented by: Nicotine (Nicoderm Cq) 14 mg TD QAM [facility] Stop: 11/22/19 08:59 Last Admin: 10/23/19 09:10 Dose: Not Given Documented by: Nicotine Polacrilex (Nicorette 2mg) 1 piece MT Q1H PRN PRN Reason: Nicotine Withdrawal Stop: 11/21/19 08:40 Last Admin: 10/23/19 09:02 Dose: 1 piece Documented by: Risperidone (Risperdal) 1 mg PO BID [facility] Stop: 11/21/19 20:59 Last Admin: 10/23/19 08:44 Dose: 1 mg Documented by: Risperidone (Risperdal) 0.5 mg PO Q4H PRN PRN Reason: psychosis Stop: 11/21/19 09:13 Sodium Chloride ([place] Nasal) 1 - 2 sprays NA PRN PRN PRN Reason: Nasal Dryness/Congestion Stop: 11/20/19 23:14 Mental Health & Subst Abuse Tx Therapist Name of Therapist: Edu Billings [facility] Core Extruder Name of Core Extruder: Not now but Carol Castanno in the past Post Discharge Appointments Primary Care Physician Name Of Family Doctor: [facility]
[2019-10-23] MEDS: LORazepam 1 MG TAB PO PRN (15:15)
[2019-10-24] MEDS: NICOTINE POLACRILEX 2 MG GUM MT PRN ×7 (07:00→19:15)
[2019-10-24] MEDS: LITHIUM CARBONATE 300 MG TAB PO SCH ×2 (08:37→21:29)
[2019-10-24] MEDS: risperiDONE 1 MG TABLET PO SCH (08:38)
[2019-10-24] MEDS: NICOTINE 14 MG/24 HR PATCH TD SCH (08:40)
--- NOTE | 2019-10-24 12:16 | Psychiatric Progress Note ---
Date of Service October 24, 2019 Impression / Recommendations Impression 24-year-old male admitted involuntarily for inpatient psychiatric treatment on 10/21/2019 after presenting to the ED with disorganized thoughts and demonstrating bizarre behaviors. Friend brought patient to the ED and was safety planned home, but rapidly returned to the ED within hours. Petitioning statement was completed by friend and patient was brought to the ED on a 302 warrant. Pt initially reported minimal compliance with medication when in the ED, but lithium level was 0.5 in the ED and he is now stating he has been compliant. We discussed continuing his home medications at this time, which he was agreeable with and has already willingly taking lithium without incident. Will attempt to gather collateral information from his outpatient psychiatric provider and the [facility] where he was most recently hospitalized. It would be ideal for patient to be on an ALCALA given history of noncompliance, and he has agreed to trial of oral paliperidone with plan for conversion to Invega Sustenna given likely tolerability of administration and q4 week dosing being most ideal in the setting of his noncompliance with medications and appointments. Once appropriate to participate, patient will be encouraged to attend group programming. We will engage patient in meetings with Student Care and Advocacy to discuss academic standing. Pt would benefit again from a system manager, as he had these services in the past. Pt remains very disorganized, tangential, and is demonstrating looseness of association. His manic behavior increases his risk of harm to self and others, and inpatient psychiatric treatment is medically necessary at this time. (1) Bipolar disorder, current episode manic severe with psychotic features: 10/21 - Diagnosis of bipolar I disorder, most recently prescribed risperidone 1mg BID and lithium 300mg BID. Pt admits to poor compliance with medications, though lithium level in ED was 0.5 which demonstrates some level of medication administration. Will resume these medications initially, recheck lithium level in 5 days. Will have risperidone 0.5mg available q4h prn for psychosis/agitation. - Pt demanding to leave, stating he does not need to be here. He is very disorganized at this time and demonstrating looseness of associations. - Admitted involuntarily for psychiatric treatment - 302 expires on 10/26/2019 at 1933 - Coordinate care with outpatient providers; medications most recently prescribed at [place] [facility] by Tari Brasher PA-C - Coordinate with the [facility] and patient's friend to gather collateral information - Will encourage attendance of group programming once patient is able to demonstrate appropriateness 10/22 - continue risperdal and lithium as above with prn haldol as above, Howard level ordered for 10/27/19. Agree with Consideration with ALCALA but patient is not able to tolerate that discussion at this time. - pt is on 302 comittment, treatment team and by evaluation LOS estimated to be 7-9days, 302 expires 10/26/19 at 1933, will file for 303 hearing form AM of 10/26/19 as he remains illogical, agitated and unable to function in the community, unable to address safety risks that lead to hospitalization leaving inpatient care as the least restrictive and most appropriate level of care at this time, continue MNPR due to level of agitation and intrusiveness requiring consistent redirection of interpersonal space boundaries - coordinated care with outpt providers, and university, - waiting records from [facility] to see if Fasting metabolic labs more recent than 08/2017 are available, if not FBS and FLipids will need ordered prior to discharge, ideally could be added to 10/27/19 labs if not before 10/23 - Pt continues to be tangential, hyperverbal, irritable, and demonstrate poor boundaries and intrusive behavior - Fortunately, he was agreeable with pursing an ALCALA and paliperidone was discussed given likelihood of tolerability and q4 week injection schedule being most ideal with regard to patient's history of noncompliance with medications/appointments - Will hold risperidone and initiate paliperidone 3mg dose today, titrating to 6mg qAM starting tomorrow morning. Can continue prn risperidone for the time being - Pt has verbalized willingness for communication with [facility]'s Student Care and Advocacy office - He is unwilling to consider case management referral at this time - Awaiting records from the [facility] regarding more recent fasting labs - 303 hearing scheduled for 10/26/2019 - Continue MNPR (2) Nicotine dependence: 10/22 - continue to offer NRT in form of patch and gum. Patient is pre- contemplational and declines smoking cessation resources at this time. for note he has h/o MJ abuse but UDS negative in ED and he states he has not smoked in 2-3 months, carried forward in this note for future provider knowledge. No action needed at this time. 10/23 - Continues to demand transfer to the [facility] where he would be permitted to smoke - Opportunity for lateral transfer was explored and facility declined patient - He makes it very clear he has not intention to quit smoking at this time Risk Factors Assessment Male: Yes Mental Health Diagnoses: Yes Substance Use Disorders: Yes Previous Psychiatric Hospitalization: Yes Smoker: Yes Protective Factors Assessment : No Responsible for Young Children: No Employed: No Supportive Family: No (living in [facility]) Interval History Identifying Information ZAY MOMIN is a 24-year-old M who currently lives in [place] in close proximity to a friend. Pt was brought to the ED earlier in the day 10/21/19, and was safety planned home with a friend. Pt has a history of bipolar disorder with history of poor medication compliance, and returned to the ED and admitted on 10/21/19 23:15 on a 302 involuntary commitment for disorganized thoughts and mitra, having reportedly verbalizing to his friend that he was considering whether or not to jump from a window. Chief Complaint "I am in senior living. I need to go to my apartment. I am to be moving in today, so I need to go." Review of Systems Notes Constitutional: denied Cardiovascular: denied Respiratory: denied Gastrointestinal: denied Neurological: denied Psychiatric: denies symptoms other than stated above Total of at least 10 systems reviewed, pertinent positives as above and in HPI. Sleep Information Total Hours of Sleep: 7 Sleep Comments: pt was awake at 0430-he came out to the day area to get snacks and paced quietly in the rousseau areas. he went back to his room and laid in bed at 0515 and fell back to sleep on 0600 rounds but currently awake again. Meal Information Percent Meal Consumed - Breakfast: 100 Percent Meal Consumed - Lunch: 50 Percent Meal Consumed - Dinner: 0 Subjective Subjective Patient was seen & assessed and interval progress reviewed with nursing and social work. Staff report the patient has continued to be tangential, irritable, and demanding discharge. 303 hearing has been scheduled for 10/26/2019. Pt was seen today to assess progress since admission. Conversation was held after patient abruptly began conversation with this provider in the hallway, loudly expressing his perceived need to go home - "I am in senior living. I need to go to my apartment. I am to be moving in today, so I need to go." It was suggested ongoing discussion take place in patient's room, as his volume was increasing. Pt states "I was in snf for 11 days, they had me on suicide watch and I did nothing. So I am not suicidal." Pt begins to inform this provider that he has "sub-leased" and apartment for the next month, with reported intent to "think about my situation. I'm in a jumbled up problem and I don't know the solution." When asked what this problem was, the patient stated "I need to go back to [place], or decide if I am going to stay here, or go to [place]. I could go to [place], but not run off to [place]. I need to be in a University, my life needs challenges and studies." Pt continues to be focused on the fact that he feels as though he is "incarcerated." Pt repeatedly asks this provider if he is "a machine, a robot or a human being?" This provider did state that the patient is a human being, but informed him of our concern regarding his recent behavior. Pt states that he is not depressed, and that if we are interested in his psychiatric history we need to go "back to the start, back to my first doctor in [facility]. I saw them when my parents , it was hard. I did not like being labeled a child of divorce. But I do not want to talk to you about it, you talk to them." Pt shares "I am scared of my mitra, but I am not scared of my depression. I would rather be depressed than manic, when I am manic I feel like I am the jake of the world, but I am not the jake of the world." This provider again informed the patient that we are also concerned about his behavior when he becomes manic. Pt was able to refrain from interjecting long enough for this provider to explain discharge goals. He is not willing for a system manager as "I don't want someone pestering me." He is willing for injectable medications and does report interest in an ALCALA. Risks and benefits of this were discussed. Pt was agreeable with switching to paliperidone, with plan to pursue Invega Sustenna. He repeatedly denies SI, but continues to be unable to appreciate the severity of his symptoms. He repeatedly requests to be sent to the [facility], despite this provider informing him that they declined the referral already sent. He then [facility]." Pt was informed this was not the anticipated trajectory for his treatment, and after he learned that length of stay for community health hospitalization is generally months to years, he states "you send me home, I will not go there. He denied other needs or concerns today. Physical Exam Psychiatric Orientation: alert and + guarded; + uncooperative Apperance: appropriately dressed (casually, in t-shirt and scrub pants), + disheveled (hair appearing unkempt, somewhat malodorous) and appeared stated age Eye Contact: good eye contact (prolonged staring) Motor Behavior: + psychomotor agitation (appearing restless, frequent pacing) Speech: + pressured speech (hyperverbal, rapid. Thick accent) Affect: + irritable affect Mood: + angry mood; no depressed mood Thought Process: + tangential thought process, + looseness of associations and + perseveration Thought Content: + preoccupation (with discharge), + paranoid and + persecution Suicidal Thoughts: denies suicidal thoughts and denies suicidal intent Homicidal Thoughts: denies homicidal thoughts Hallucinations: no auditory hallucinations and no visual hallucinations Cognition: language grossly intact; + attention not intact Insight: + impaired insight Judgement: + impaired judgement Vital Signs (Past 24 Hours) Last Vital Signs Temp 36.3 C L 10/24/19 06:48 Pulse 81 10/24/19 06:49 Resp 18 10/24/19 06:48 BP 118/82 10/24/19 06:49 Pulse Ox 99 10/21/19 23:37 Results & Data ([facility]) Current Inpatient Medications Current Inpatient Medications: Current Inpatient Medications Acetaminophen (Tylenol) 650 mg PO Q4H PRN PRN Reason: Headache or Minor Fever Stop: 11/20/19 23:14 Al Hydrox/Mg Hydrox/Simethicone (Maalox) 30 ml PO Q4H PRN PRN Reason: GI Upset Stop: 11/20/19 23:14 Benztropine Mesylate (Cogentin) 1 mg PO Q6H PRN PRN Reason: dystonia Stop: 11/20/19 23:20 Bismuth Subsalicylate (Kaopectate) 15 ml PO PRN PRN PRN Reason: Loose Stool Stop: 11/20/19 23:14 Haloperidol (Haldol) 5 mg PO Q4H PRN PRN Reason: agitation r/t psychosis Stop: 11/20/19 23:16 Last Admin: 10/22/19 08:03 Dose: 5 mg Documented by: Haloperidol Lactate (Haldol) 5 mg IM Q4H PRN PRN Reason: Agitation Stop: 11/20/19 23:16 Hydroxyzine HCl (Vistaril) 50 mg PO HSZ PRN PRN Reason: Insomnia Stop: 11/20/19 23:14 Hydroxyzine HCl (Vistaril) 25 mg PO Q4H PRN PRN Reason: Anxiety Stop: 11/20/19 23:14 Howard Carbonate ([facility] Carbonate) 300 mg PO BID [facility] Stop: 11/21/19 09:14 Last Admin: 10/24/19 08:37 Dose: 300 mg Documented by: Lorazepam (Ativan) 2 mg IM Q4H PRN PRN Reason: Agitation Stop: 11/20/19 23:17 Lorazepam (Ativan) 1 mg PO Q4H PRN PRN Reason: Anxiety/Agitation Stop: 11/20/19 23:19 Last Admin: 10/23/19 15:15 Dose: 1 mg Documented by: Magnesium Hydroxide (Milk Of Magnesia) 30 ml PO DAILY PRN PRN Reason: Constipation Stop: 11/20/19 23:14 Miscellaneous (Remove Nicoderm Patch) 1 ea N/A DAILY@[id number] [facility] Stop: 11/22/19 08:58 Last Admin: 10/24/19 08:40 Dose: Not Given Documented by: Nicotine (Nicoderm Cq) 14 mg TD [facility] Stop: 11/22/19 08:59 Last Admin: 10/24/19 08:40 Dose: Not Given Documented by: Nicotine Polacrilex (Nicorette 2mg) 1 piece MT Q1H PRN PRN Reason: Nicotine Withdrawal Stop: 11/21/19 08:40 Last Admin: 10/24/19 09:24 Dose: 1 piece Documented by: Paliperidone (Invega) 3 mg PO ONE ONE Stop: 10/24/19 12:16 Paliperidone (Invega) 6 mg PO QAM [facility] Stop: 11/24/19 08:59 Risperidone (Risperdal) 1 mg PO BID [facility] Stop: 11/21/19 20:59 Last Admin: 10/24/19 08:38 Dose: 1 mg Documented by: Risperidone (Risperdal) 0.5 mg PO Q4H PRN PRN Reason: psychosis Stop: 11/21/19 09:13 Last Admin: 10/23/19 15:24 Dose: 0.5 mg Documented by: Sodium Chloride ([place] Nasal) 1 - 2 sprays NA PRN PRN PRN Reason: Nasal Dryness/Congestion Stop: 11/20/19 23:14 Mental Health & Subst Abuse Tx Therapist Name of Therapist: Edu Billings [facility] [employer] Around Gear Machine Operator Name of All Around Gear Machine Operator: Not now but Carol Castanon in the past Post Discharge Appointments Primary Care Physician Name Of Family Doctor: [facility]
[2019-10-24] MEDS ORDERED: PALIPERIDONE 3 MG TABCR PO ONE (12:30)
[2019-10-24] MEDS: LORazepam 1 MG TAB PO PRN (15:50)
[2019-10-25] MEDS: NICOTINE POLACRILEX 2 MG GUM MT PRN ×7 (07:06→20:51)
[2019-10-25] MEDS: LORazepam 1 MG TAB PO PRN (08:48)
[2019-10-25] MEDS: PALIPERIDONE 3 MG TABCR PO SCH (09:22)
[2019-10-25] MEDS: LITHIUM CARBONATE 300 MG TAB PO SCH ×2 (09:23→20:51)
[2019-10-25] MEDS: NICOTINE 14 MG/24 HR PATCH TD SCH (09:24)
--- NOTE | 2019-10-25 14:00 | Psychiatric Progress Note ---
Date of Service October 25, 2019 Impression / Recommendations Impression 24-year-old male admitted involuntarily for inpatient psychiatric treatment on 10/21/2019 after presenting to the ED with disorganized thoughts and demonstrating bizarre behaviors. Friend brought patient to the ED and was safety planned home, but rapidly returned to the ED within hours. Petitioning statement was completed by friend and patient was brought to the ED on a 302 warrant. Pt initially reported minimal compliance with medication when in the ED, but lithium level was 0.5 in the ED and he is now stating he has been compliant. We discussed continuing his home medications at this time, which he was agreeable with and has already willingly taking lithium without incident. Will attempt to gather collateral information from his outpatient psychiatric provider and the [facility] where he was most recently hospitalized. It would be ideal for patient to be on an ALCALA given history of noncompliance, and he has agreed to trial of oral paliperidone with plan for conversion to Invega Sustenna given likely tolerability of administration and q4 week dosing being most ideal in the setting of his noncompliance with medications and appointments. He is expressing desire to start ALCALA form of Invega. Once appropriate to participate, patient will be encouraged to attend group programming. We will engage patient in meetings with [facility] Advocacy to discuss academic standing. Pt would benefit again from a counseling case manager, as he had these services in the past. Pt remains very disorganized, tangential, and is demonstrating looseness of association. His manic behavior increases his risk of harm to self and others, and inpatient psychiatric treatment is medically necessary at this time. 303 hearing scheduled for morning of 10/25. (1) Bipolar disorder, current episode manic severe with psychotic features: 10/21 - Diagnosis of bipolar I disorder, most recently prescribed risperidone 1mg BID and lithium 300mg BID. Pt admits to poor compliance with medications, though lithium level in ED was 0.5 which demonstrates some level of medication administration. Will resume these medications initially, recheck lithium level in 5 days. Will have risperidone 0.5mg available q4h prn for psychosis/agitation. - Pt demanding to leave, stating he does not need to be here. He is very disorganized at this time and demonstrating looseness of associations. - Admitted involuntarily for psychiatric treatment - 302 expires on 10/26/2019 at 1933 - Coordinate care with outpatient providers; medications most recently prescribed at [place] by Tari Brasher PA-C - Coordinate with the University and patient's friend to gather collateral information - Will encourage attendance of group programming once patient is able to demonstrate appropriateness 10/22 - continue risperdal and lithium as above with prn haldol as above, [place] level ordered for 10/27/19. Agree with Consideration with ALCALA but patient is not able to tolerate that discussion at this time. - pt is on 302 comittment, treatment team and by evaluation LOS estimated to be 7-9days, 302 expires 10/26/19 at 1933, will file for 303 hearing form AM of 10/26/19 as he remains illogical, agitated and unable to function in the community, unable to address safety risks that lead to hospitalization leaving inpatient care as the least restrictive and most appropriate level of care at this time, continue MNPR due to level of agitation and intrusiveness requiring consistent redirection of interpersonal space boundaries - coordinated care with outpt providers, and university, - waiting records from [place] to see if Fasting metabolic labs more recent than 08/2017 are available, if not FBS and FLipids will need ordered prior to discharge, ideally could be added to 10/27/19 labs if not before 10/23 - Pt continues to be tangential, hyperverbal, irritable, and demonstrate poor boundaries and intrusive behavior - Fortunately, he was agreeable with pursing an ALCALA and paliperidone was discussed given likelihood of tolerability and q4 week injection schedule being most ideal with regard to patient's history of noncompliance with medications/appointments - Will hold risperidone and initiate paliperidone 3mg dose today, titrating to 6mg qAM starting tomorrow morning. Can continue prn risperidone for the time being - Pt has verbalized willingness for communication with [facility]'s Student Care and Advocacy office - He is unwilling to consider case management referral at this time - Awaiting records from the [facility] regarding more recent fasting labs - 303 hearing scheduled for 10/26/2019 - Continue MNPR 10/24 - continue treatment plan -ordered fasting labs since not clear when last fasting labs obtained -303 hearing scheduled for 10/26/2019 and reviewe this with pt and reviewed rationale for admission and ongoing treatment at hospital level of care being purursed (2) Nicotine dependence: 10/22 - continue to offer NRT in form of patch and gum. Patient is pre- contemplational and declines smoking cessation resources at this time. for note he has h/o MJ abuse but UDS negative in ED and he states he has not smoked in 2-3 months, carried forward in this note for future provider knowledge. No action needed at this time. 10/23 - Continues to demand transfer to the [facility] where he would be permitted to smoke - Opportunity for lateral transfer was explored and facility declined patient - He makes it very clear he has not intention to quit smoking at this time' 10/24 using nicotine gum for cravigns, not open to smoking cessation education and too manic to handle this conversation at this time Risk Factors Assessment Male: Yes Mental Health Diagnoses: Yes Substance Use Disorders: Yes Previous Psychiatric Hospitalization: Yes Smoker: Yes Protective Factors Assessment : No Responsible for Young Children: No Employed: No Supportive Family: No (living in [place]) Interval History Identifying Information ZAY MOMIN is a 24-year-old M who currently lives in [place] in close proximity to a friend. Pt was brought to the ED earlier in the day 10/21/19, and was safety planned home with a friend. Pt has a history of bipolar disorder with history of poor medication compliance, and returned to the ED and admitted on 10/21/19 23:15 on a 302 involuntary commitment for disorganized thoughts and mitra, having reportedly verbalizing to his friend that he was considering whether or not to jump from a window. Chief Complaint I feel like I am being incarcerated". Review of Systems Sleep Information Total Hours of Sleep: 6 Sleep Comments: pt awoke and had a bowl of cereal with milk. pt returned to bed independently after finishing his snack. pt appeared subdued. pt on q-15 minute checks Meal Information Percent Meal Consumed - Breakfast: 100 Percent Meal Consumed - Lunch: 100 Percent Meal Consumed - Dinner: 50 Subjective Subjective Patient was seen & assessed and interval progress reviewed with treatment team. Pt is preoccupied about not wanting to be in the hospital and having trouble understanding why he is admitted. He appears to view his disorganization in thought process as secondary to obtaining an injection in the ER. He continues to have poor boundaries and pressured speech. He is without insight into his presentation. He is expressing interest in Invega Sustenna long acting injection though and expresses tolerating Invega well and liking this medication. He complains that Risperdal had sexual s/e and reports that Invega is without that concern for him. He denied nausea, vomiting, diarrhea, constipation, shortness of breath, cough, headache or any pain or other somatic concerns. He reported to engineering technical writer that he is attending groups but views them as not relevant for him as views them as kindergarten level and feels he is being treated like a child in general ramses with having to remain in the hospital. He expressed no insight into rationale for prior hospitalizations or time in [facility]. He sought to have it explained why the doctors feel he should be in the hospital and did not seem to take in the explanation and minimized and try to rationalize away some of the aspects and examples of the presenting disorganized behaviors. He expresses aim in being complaint with attending outpt follow up appts. Physical Exam Psychiatric Orientation: alert, oriented to person, oriented to place, oriented to time and + guarded; + uncooperative Apperance: appropriately dressed (casually, in t-shirt and scrub pants), + disheveled (hair appearing unkempt, somewhat malodorous) and appeared stated age Eye Contact: good eye contact (prolonged staring) and + fair eye contact Motor Behavior: + psychomotor agitation (appearing restless, frequent pacing) Speech: + pressured speech (hyperverbal, rapid. Thick accent) Affect: + irritable affect and mood congruent with affect Mood: + angry mood; no depressed mood Thought Process: + tangential thought process, + flight of ideas, + looseness of associations and + perseveration Thought Content: + preoccupation (with discharge), + paranoid and + persecution Suicidal Thoughts: denies suicidal thoughts and denies suicidal intent Homicidal Thoughts: denies homicidal thoughts Hallucinations: no auditory hallucinations and no visual hallucinations Cognition: language grossly intact; + recent memory not intact and + attention not intact Estimated Intelligence: average estimated intelligence and consistent with education level Insight: + impaired insight Judgement: + impaired judgement Vital Signs (Past 24 Hours) Last Vital Signs Temp 36.4 C L 10/25/19 06:37 Pulse 86 10/25/19 06:38 Resp 18 10/25/19 06:37 BP 100/66 10/25/19 06:38 Pulse Ox 99 10/21/19 23:37 Results & Data ([facility]) Current Inpatient Medications Current Inpatient Medications: Current Inpatient Medications Acetaminophen (Tylenol) 650 mg PO Q4H PRN PRN Reason: Headache or Minor Fever Stop: 11/20/19 23:14 Al Hydrox/Mg Hydrox/Simethicone (Maalox) 30 ml PO Q4H PRN PRN Reason: GI Upset Stop: 11/20/19 23:14 Benztropine Mesylate (Cogentin) 1 mg PO Q6H PRN PRN Reason: dystonia Stop: 11/20/19 23:20 Bismuth Subsalicylate (Kaopectate) 15 ml PO PRN PRN PRN Reason: Loose Stool Stop: 11/20/19 23:14 Haloperidol (Haldol) 5 mg PO Q4H PRN PRN Reason: agitation r/t psychosis Stop: 11/20/19 23:16 Last Admin: 10/22/19 08:03 Dose: 5 mg Documented by: Haloperidol Lactate (Haldol) 5 mg IM Q4H PRN PRN Reason: Agitation Stop: 11/20/19 23:16 Hydroxyzine HCl (Vistaril) 50 mg PO HSZ PRN PRN Reason: Insomnia Stop: 11/20/19 23:14 Hydroxyzine HCl (Vistaril) 25 mg PO Q4H PRN PRN Reason: Anxiety Stop: 11/20/19 23:14 [place] Carbonate ([place] Carbonate) 300 mg PO BID COUNTS INCLUDE 234 BEDS AT THE [facility] Stop: 11/21/19 09:14 Last Admin: 10/25/19 09:23 Dose: 300 mg Documented by: Lorazepam (Ativan) 2 mg IM Q4H PRN PRN Reason: Agitation Stop: 11/20/19 23:17 Lorazepam (Ativan) 1 mg PO Q4H PRN PRN Reason: Anxiety/Agitation Stop: 11/20/19 23:19 Last Admin: 10/25/19 08:48 Dose: 1 mg Documented by: Magnesium Hydroxide (Milk Of Magnesia) 30 ml PO DAILY PRN PRN Reason: Constipation Stop: 11/20/19 23:14 Miscellaneous (Remove Nicoderm Patch) 1 ea N/A DAILY@0859 COUNTS INCLUDE 234 BEDS AT THE [facility] Stop: 11/22/19 08:58 Last Admin: 10/25/19 09:24 Dose: Not Given Documented by: Nicotine (Nicoderm Cq) 14 mg TD QAM COUNTS INCLUDE 234 BEDS AT THE [facility] Stop: 11/22/19 08:59 Last Admin: 10/25/19 09:24 Dose: Not Given Documented by: Nicotine Polacrilex (Nicorette 2mg) 1 piece MT Q1H PRN PRN Reason: Nicotine Withdrawal Stop: 11/21/19 08:40 Last Admin: 10/25/19 13:34 Dose: 1 piece Documented by: Paliperidone (Invega) 6 mg PO QAM JANET Stop: 11/24/19 08:59 Last Admin: 10/25/19 09:22 Dose: 6 mg Documented by: Risperidone (Risperdal) 0.5 mg PO Q4H PRN PRN Reason: psychosis Stop: 11/21/19 09:13 Last Admin: 10/23/19 15:24 Dose: 0.5 mg Documented by: Sodium Chloride ([place] Nasal) 1 - 2 sprays NA PRN PRN PRN Reason: Nasal Dryness/Congestion Stop: 11/20/19 23:14 Mental Health & Subst Abuse Tx Therapist Name of Therapist: Edu Billings CAPS Box Estimator Name of Box Estimator: Not now but Carol Castanon in the past Post Discharge Appointments Primary Care Physician Name Of Family Doctor: [facility]
[2019-10-26] MEDS: NICOTINE POLACRILEX 2 MG GUM MT PRN ×8 (07:01→21:35)
[2019-10-26] MEDS: PALIPERIDONE 3 MG TABCR PO SCH (08:13)
[2019-10-26] MEDS: NICOTINE 14 MG/24 HR PATCH TD SCH (08:14)
[2019-10-26] MEDS: LITHIUM CARBONATE 300 MG TAB PO SCH ×2 (08:14→21:13)
--- NOTE | 2019-10-26 13:51 | Psychiatric Progress Note ---
Date of Service October 26, 2019 Impression / Recommendations Impression 24-year-old male admitted involuntarily for inpatient psychiatric treatment on 10/21/2019 after presenting to the ED with disorganized thoughts and demonstrating bizarre behaviors. Friend brought patient to the ED and was safety planned home, but rapidly returned to the ED within hours. Petitioning statement was completed by friend and patient was brought to the ED on a 302 warrant. Pt initially reported minimal compliance with medication when in the ED, but lithium level was 0.5 in the ED and he is now stating he has been compliant. We discussed continuing his home medications at this time, which he was agreeable with and has already willingly taking lithium without incident. Will attempt to gather collateral information from his outpatient psychiatric provider and the [facility] where he was most recently hospitalized. It would be ideal for patient to be on an ALCLAA given history of noncompliance, and he has agreed to trial of oral paliperidone with plan for conversion to Invega Sustenna given likely tolerability of administration and q4 week dosing being most ideal in the setting of his noncompliance with medications and appointments. He is expressing desire to start ALCALA form of Invega. Once appropriate to participate, patient will be encouraged to attend group programming. We will engage patient in meetings with [facility] Advoc[facility] to discuss academic standing. Pt would benefit again from a showcase maker, as he had these services in the past. Pt remains very disorganized, tangential, and is demonstrating looseness of association. His manic behavior increases his risk of harm to self and others, and inpatient psychiatric treatment is medically necessary at this time. 303 petition was granted on 10/25. Invega is being taken by pt and attmepting to obtain Invega Sustena ALCALA form of this medicaiton but first level of prior auth was declined and being processed further bey insurance currently. Invega now 6mg a day with considersation of further ttiration [place] being rx'd. (1) Bipolar disorder, current episode manic severe with psychotic features: 10/21 - Diagnosis of bipolar I disorder, most recently prescribed risperidone 1mg BID and lithium 300mg BID. Pt admits to poor compliance with medications, though lithium level in ED was 0.5 which demonstrates some level of medication administration. Will resume these medications initially, recheck lithium level in 5 days. Will have risperidone 0.5mg available q4h prn for psychosis/agitation. - Pt demanding to leave, stating he does not need to be here. He is very disorganized at this time and demonstrating looseness of associations. - Admitted involuntarily for psychiatric treatment - 302 expires on 10/26/2019 at 1933 - Coordinate care with outpatient providers; medications most recently prescribed at [facility] by Tari Brasher PA-C - Coordinate with the University and patient's friend to gather collateral information - Will encourage attendance of group programming once patient is able to demonstrate appropriateness 10/22 - continue risperdal and lithium as above with prn haldol as above, [place] level ordered for 10/27/19. Agree with Consideration with ALCALA but patient is not able to tolerate that discussion at this time. - pt is on 302 comittment, treatment team and by evaluation LOS estimated to be 7-9days, 302 expires 10/26/19 at 1933, will file for 303 hearing form AM of 10/26/19 as he remains illogical, agitated and unable to function in the community, unable to address safety risks that lead to hospitalization leaving inpatient care as the least restrictive and most appropriate level of care at this time, continue MNPR due to level of agitation and intrusiveness requiring consistent redirection of interpersonal space boundaries - coordinated care with outpt providers, and university, - waiting records from [facility] to see if Fasting metabolic labs more recent than 08/2017 are available, if not FBS and FLipids will need ordered prior to discharge, ideally could be added to 10/27/19 labs if not before 10/23 - Pt continues to be tangential, hyperverbal, irritable, and demonstrate poor boundaries and intrusive behavior - Fortunately, he was agreeable with pursing an ALCALA and paliperidone was discussed given likelihood of tolerability and q4 week injection schedule being most ideal with regard to patient's history of noncompliance with medications/appointments - Will hold risperidone and initiate paliperidone 3mg dose today, titrating to 6mg qAM starting tomorrow morning. Can continue prn risperidone for the time being - Pt has verbalized willingness for communication with [facility] office - He is unwilling to consider case management referral at this time - Awaiting records from the [facility] regarding more recent fasting labs - 303 hearing scheduled for 10/26/2019 - Continue MNPR 10/24 - continue treatment plan -ordered fasting labs since not clear when last fasting labs obtained -303 hearing scheduled for 10/26/2019 and review this with pt and reviewed rationale for admission and ongoing treatment at hospital level of care being perused 10/25 continue treatment plan continue trying to obtain ALCALA Sustenna form of Invega addressing prior Auth process of his insurance reality testing and psychoeducation of pt's dx and current symptoms consider further titration of Invega oral dose (2) Nicotine dependence: 10/22 - continue to offer NRT in form of patch and gum. Patient is pre- contemplational and declines smoking cessation resources at this time. for note he has h/o MJ abuse but UDS negative in ED and he states he has not smoked in 2-3 months, carried forward in this note for future provider knowledge. No action needed at this time. 10/23 - Continues to demand transfer to the [facility] where he would be permitted to smoke - Opportunity for lateral transfer was explored and facility declined patient - He makes it very clear he has not intention to quit smoking at this time' 10/24 using nicotine gum for cravings, not open to smoking cessation education and too manic to handle this conversation at this time Risk Factors Assessment Male: Yes Mental Health Diagnoses: Yes Substance Use Disorders: Yes Previous Psychiatric Hospitalization: Yes Smoker: Yes Protective Factors Assessment : No Responsible for Young Children: No Employed: No Supportive Family: No (living in [place]) Interval History Identifying Information ZAY MOMIN is a 24-year-old M who currently lives in [place] in close proximity to a friend. Pt was brought to the ED earlier in the day 10/21/19, and was safety planned home with a friend. Pt has a history of bipolar disorder with history of poor medication compliance, and returned to the ED and admitted on 10/21/19 23:15 on a 302 involuntary commitment for disorganized thoughts and mitra, having reportedly verbalizing to his friend that he was considering whether or not to jump from a window. 303 petition granted on am of 10/26/2019 Chief Complaint I feel like I am am being incarcerated". Review of Systems Sleep Information Total Hours of Sleep: 7 Sleep Comments: pt awoke and had a bowl of cereal with milk. pt returned to bed independently after finishing his snack. pt appeared subdued. pt on q-15 minute checks Meal Information Percent Meal Consumed - Breakfast: 100 Percent Meal Consumed - Lunch: 100 Percent Meal Consumed - Dinner: 100 Subjective Subjective Patient was seen & assessed and interval progress reviewed with treatment team Pt continues to express that he feels like he is being incarcerated and seeking discharge form the hospital. he refused to sign his treatment plan. He denied SI or HI. He denied AH or VH. He denied paranoid thinking. He denied the potential that he could be having manic symptoms currently. While he did share how manic symptoms impacted his functioning in August leading him to have charges pressed against him and having a prior inpt treatment course. He expressed lack of i nsight into his current symptoms and how pressured his speech is and how his thought process is impacted and how his judgment and behaviors have been and still are impacted by his symptoms of his bipolar d/o, while admitting he does have bipolar d/o. He is open to and seeking ALCALA form of Invega but is unable to shared what Invega might help alleviate. Pt thought processes not linear as having loosening of associations and tangential thinking occur during the assessment. He is nervous in his mood as concerned about the upcoming hearing. 303 petition was granted during 9:30am hearing Physical Exam Psychiatric Orientation: alert, oriented to person, oriented to place, oriented to time and + guarded; + uncooperative Apperance: appropriately dressed (casually, in t-shirt and scrub pants), + disheveled (hair appearing unkempt, somewhat malodorous) and appeared stated age Eye Contact: good eye contact (prolonged staring) Motor Behavior: + psychomotor agitation (appearing restless, frequent pacing) Speech: + pressured speech (hyperverbal, rapid. Thick Mac[place] accent) Affect: + anxious affect, + irritable affect and mood congruent with affect Mood: + anxious mood; no depressed mood Thought Process: + tangential thought process, + looseness of associations and + perseveration Thought Content: + preoccupation (with discharge), + paranoid and + persecution Suicidal Thoughts: denies suicidal thoughts and denies suicidal intent Homicidal Thoughts: denies homicidal thoughts Hallucinations: no auditory hallucinations and no visual hallucinations Cognition: language grossly intact; + recent memory not intact and + attention not intact Estimated Intelligence: average estimated intelligence and consistent with education level Insight: + impaired insight Judgement: + impaired judgement Vital Signs (Past 24 Hours) Last Vital Signs Temp 36.4 C L 10/26/19 06:30 Pulse 99 H 10/26/19 06:30 Resp 18 10/26/19 06:30 BP 100/69 10/26/19 06:30 Pulse Ox 99 10/21/19 23:37 Results & Data ([facility]) Current Inpatient Medications Current Inpatient Medications: Current Inpatient Medications Acetaminophen (Tylenol) 650 mg PO Q4H PRN PRN Reason: Headache or Minor Fever Stop: 11/20/19 23:14 Al Hydrox/Mg Hydrox/Simethicone (Maalox) 30 ml PO Q4H PRN PRN Reason: GI Upset Stop: 11/20/19 23:14 Benztropine Mesylate (Cogentin) 1 mg PO Q6H PRN PRN Reason: dystonia Stop: 11/20/19 23:20 Bismuth Subsalicylate (Kaopectate) 15 ml PO PRN PRN PRN Reason: Loose Stool Stop: 11/20/19 23:14 Haloperidol (Haldol) 5 mg PO Q4H PRN PRN Reason: agitation r/t psychosis Stop: 11/20/19 23:16 Last Admin: 10/22/19 08:03 Dose: 5 mg Documented by: Haloperidol Lactate (Haldol) 5 mg IM Q4H PRN PRN Reason: Agitation Stop: 11/20/19 23:16 Hydroxyzine HCl (Vistaril) 50 mg PO HSZ PRN PRN Reason: Insomnia Stop: 11/20/19 23:14 Hydroxyzine HCl (Vistaril) 25 mg PO Q4H PRN PRN Reason: Anxiety Stop: 11/20/19 23:14 [place] Carbonate ([place] Carbonate) 300 mg PO BID JANET Stop: 11/21/19 09:14 Last Admin: 10/26/19 08:14 Dose: 300 mg Documented by: Lorazepam (Ativan) 2 mg IM Q4H PRN PRN Reason: Agitation Stop: 11/20/19 23:17 Lorazepam (Ativan) 1 mg PO Q4H PRN PRN Reason: Anxiety/Agitation Stop: 11/20/19 23:19 Last Admin: 10/25/19 08:48 Dose: 1 mg Documented by: Magnesium Hydroxide (Milk Of Magnesia) 30 ml PO DAILY PRN PRN Reason: Constipation Stop: 11/20/19 23:14 Miscellaneous (Remove Nicoderm Patch) 1 ea N/A DAILY@0859 [facility] Stop: 11/22/19 08:58 Last Admin: 10/26/19 08:14 Dose: Not Given Documented by: Nicotine ([facility]oderm Cq) [facility] [place] [facility] [place] Stop: 11/22/19 08:59 Last Admin: 10/26/19 08:14 Dose: Not Given Documented by: Nicotine Polacrilex (Nicorette 2mg) 1 piece MT Q1H PRN PRN Reason: Nicotine Withdrawal Stop: 11/21/19 08:40 Last Admin: 10/26/19 13:31 Dose: 1 piece Documented by: Paliperidone (Invega) 6 [facility] [place] Stop: 11/24/19 08:59 Last Admin: 10/26/19 08:13 Dose: 6 mg Documented by: Risperidone (Risperdal) 0.5 mg PO Q4H PRN PRN Reason: psychosis Stop: 11/21/19 09:13 Last Admin: 10/23/19 15:24 Dose: 0.5 mg Documented by: Sodium Chloride ([place] Nasal) 1 - 2 sprays NA PRN PRN PRN Reason: Nasal Dryness/Congestion Stop: 11/20/19 23:14 Mental Health & Subst Abuse Tx Therapist Name of Therapist: Edu Billings [facility] Piano Mover Name of Piano Mover: Not now but Carol Castanon in the past Post Discharge Appointments Primary Care Physician Name Of Family Doctor: [facility]
[2019-10-26] MEDS: LORazepam 1 MG TAB PO PRN (22:15)
[2019-10-27] MEDS: NICOTINE POLACRILEX 2 MG GUM MT PRN ×6 (07:06→21:16)
[2019-10-27] MEDS: PALIPERIDONE 3 MG TABCR PO SCH (07:27)
[2019-10-27] MEDS: NICOTINE 14 MG/24 HR PATCH TD SCH (07:29)
[2019-10-27] MEDS: LITHIUM CARBONATE 300 MG TAB PO SCH (08:10)
[2019-10-27 08:31] LABS: Glucose Fasting 93 mg/dl (70-99)
[2019-10-27 08:38] LABS: Chol HDL Ratio 5; Cholesterol 176 mg/dl (0-200); HDL Cholesterol 38 mg/dl; LDL Cholesterol Calculated 108 mg/dl; Triglycerides 151 mg/dl (0-150); VLDL Cholesterol 30 mg/dl
[2019-10-27] MEDS ORDERED: LITHIUM CARBONATE 300 MG TAB PO ONE (12:45)
--- NOTE | 2019-10-27 15:00 | Psychiatric Progress Note ---
Date of Service October 27, 2019 Impression / Recommendations Impression 24-year-old male admitted involuntarily for inpatient psychiatric treatment on 10/21/2019 after presenting to the ED with disorganized thoughts and demonstrating bizarre behaviors. Friend brought patient to the ED and was safety planned home, but rapidly returned to the ED within hours. Petitioning statement was completed by friend and patient was brought to the ED on a 302 warrant. Pt initially reported minimal compliance with medication when in the ED, but lithium level was 0.5 in the ED and he is now stating he has been compliant. We discussed continuing his home medications at this time, which he was agreeable with and has already willingly taking lithium without incident. Will attempt to gather collateral information from his outpatient psychiatric provider and the [facility] where he was most recently hospitalized. It would be ideal for patient to be on an ALCALA given history of noncompliance, and he has agreed to trial of oral paliperidone with plan for conversion to Invega Sustenna given likely tolerability of administration and q4 week dosing being most ideal in the setting of his noncompliance with medications and appointments. He is expressing desire to start ALCALA form of Invega. Patient is now attending group programming and has improved to the degree that he is less irritable and more organized. We will engage patient in meetings with [facility] Advocacy to discuss academic standing. Pt would benefit again from a rn case management, as he had these services in the past. Pt remains very disorganized, tangential, and is demonstrating looseness of association. His manic behavior increases his risk of harm to self and others, and inpatient psychiatric treatment is medically necessary at this time. 303 petition was granted on 10/25. Invega is being taken by pt and attmepting to obtain Invega Sustena ALCALA form of this medicaiton but first level of prior auth was declined and being processed further bey insurance currently. Invega now 6mg a day with considersation of f urther ttiration [place] being rx'd and titrated in view of persistent symptoms of mitra. (1) Bipolar disorder, current episode manic severe with psychotic features: 10/21 - Diagnosis of bipolar I disorder, most recently prescribed risperidone 1mg BID and lithium 300mg BID. Pt admits to poor compliance with medications, though lithium level in ED was 0.5 which demonstrates some level of medication administration. Will resume these medications initially, recheck lithium level in 5 days. Will have risperidone 0.5mg available q4h prn for psyc hosis/agitation. - Pt demanding to leave, stating he does not need to be here. He is very disorganized at this time and demonstrating looseness of associations. - Admitted involuntarily for psychiatric treatment - 302 expires on 10/26/2019 at 1933 - Coordinate care with outpatient providers; medications most recently prescribed at [place] by Tari Brasher PA-C - Coordinate with the University and patient's friend to gather collateral information - Will encourage attendance of group programming once patient is able to demonstrate appropriateness 10/22 - continue risperdal and lithium as above with prn haldol as above, [place] level ordered for 10/27/19. Agree with Consideration with ALCALA but patient is not able to tolerate that discussion at this time. - pt is on 302 comittment, treatment team and by evaluation LOS estimated to be 7-9days, 302 expires 10/26/19 at 1933, will file for 303 hearing form AM of 10/26/19 as he remains illogical, agitated and unable to function in the com [facility], unable to address safety risks that lead to hospitalization leaving inpatient care as the least restrictive and most appropriate level of care at this time, continue MNPR due to level of agitation and intrusiveness requiring consistent redirection of interpersonal space boundaries - coordinated care with outpt providers, and [place], - waiting records from [facility] to see if Fasting metabolic labs more recent than 08/2017 are available, if not FBS and FLipids will need ordered prior to discharge, ideally could be added to 10/27/19 labs if not before 10/23 - Pt continues to be tangential, hyperverbal, irritable, and demonstrate poor boundaries and intrusive behavior - Fortunately, he was agreeable with pursing an ALCALA and paliperidone was discussed given likelihood of tolerability and q4 week injection schedule being most ideal with regard to patient's history of noncompliance with medications/appointments - Will hold risperidone and initiate paliperidone 3mg dose today, titrating to 6mg qAM starting tomorrow morning. Can continue prn risperidone for the time being - Pt has verbalized willingness for communication with [employer] office - He is unwilling to consider case management referral at this time - Awaiting records from the [facility] regarding more recent fasting labs - 303 hearing scheduled for 10/26/2019 - Continue MNPR 10/24 - continue treatment plan -ordered fasting labs since not clear when last fasting labs obtained -303 hearing scheduled for 10/26/2019 and review this with pt and reviewed rationale for admission and ongoing treatment at hospital level of care being perused 10/25 continue treatment plan continue trying to obtain ALCALA Sustenna form of Invega addressing prior Auth process of his insurance reality testing and psychoeducation of pt's dx and current symptoms consider further titration of Invega oral dose 10/26 -No progress today in terms of obtaining prior authorization for Invega Sustenna -The patient's lithium level this morning was 0.6. He continues to exhibit pressured speech and flight of ideas. Today, we offered him an extra dose 300 mg of lithium carbonate immediate release, and then increased his dose of lithium carbonate to 450 mg twice a day (extended release). -The patient admits that he has a history of opening capsules" snorting" through nasal insufflation the contents, including lithium capsules. For that reason, we are preferring to give him tablets. -The plan is to continue oral Invega 6 mg a day and to convert to the long- acting intramuscular form once it is authorized. (2) Nicotine dependence: 10/22 - continue to offer NRT in form of patch and gum. Patient is pre- contemplational and declines smoking cessation resources at this time. for note he has h/o MJ abuse but UDS negative in ED and he states he has not smoked in 2-3 months, carried forward in this note for future provider knowledge. No action needed at this time. 10/23 - Continues to demand transfer to the [facility] where he would be permitted to smoke - Opportunity for lateral transfer was explored and facility declined patient - He makes it very clear he has not intention to quit smoking at this time' 10/24 using nicotine gum for cravings, not open to smoking cessation education and too manic to handle this conversation at this time 10/26 -The patient tells us that he would like to stop smoking, but adds "probably not right now." He has been asking for his Nicorette gum on a regular basis, and does not respond to suggestions that he extend the duration between uses. Risk Factors Assessment Male: Yes Mental Health Diagnoses: Yes Substance Use Disorders: Yes Previous Psychiatric Hospitalization: Yes Smoker: Yes Protective Factors Assessment : No Responsible for Young Children: No Employed: No Supportive Family: No (living in [facility]) Interval History Identifying Information YASH MOMIN is a 24-year-old M who currently lives in [place] in close proximity to a friend. Pt was brought to the ED earlier in the day 10/21/19, and was safety planned home with a friend. Pt has a history of bipolar disorder wi th history of poor medication compliance, and returned to the ED and admitted on 10/21/19 23:15 on a 302 involuntary commitment for disorganized thoughts and mitra, having reportedly verbalizing to his friend that he was considering whether or not to jump from a window. 303 petition granted on am of 10/26/2019 Chief Complaint " I know I have bipolar disorder. I have manic episodes.". Review of Systems Sleep Information Total Hours of Sleep: 5.5 Sleep Comments: yash had received a prn of ativan at hs on the evening shift. he was awake at 0240 wanting to eat snacks as he ususlly does. he was reminded he was NPO for fasting labs-he said he had not been told. after further discussion, he drank a cup of decaff hot tea, took a prn dose of vistaril for sleep aid and fell back to sleep by 0330 Meal Information Percent Meal Consumed - Breakfast: 100 Percent Meal Consumed - Lunch: 100 Percent Meal Consumed - Dinner: 100 Subjective Subjective Patient was seen & assessed and interval progress reviewed with treatment team. I met with the patient individually in order to assess his current mental status, evaluate his response to treatment, address any issues, questions and concerns that may arise, and coordinate any necessary changes in his treatment regimen with the patient. The assessment today was challenged by the fact that the patient exhibits flight of ideas and seems unable to focus on a response to any question for more than a matter of maybe about 15 seconds before segueing into a tangentially related subject, and then onto multiple other subjects. For example, today, he began talking about how his bathroom shower does not work, and as he was describing the problem he talked about urinating in the bathtub, and segued into multiple subjects ending with the fact that he likes to moisturize his face with moisturizers before I interrupted and redirected them. The patient does say today that he realizes that he has mitra and says that he also knows that his manic episodes have led to psychosisand he can correctly identify a psychotic belief that he periodically holds when ill. Specifically, he tells me that when he becomes delusional he believes that there is a body double or doppelgnger who engages in behaviors that ended up being attributed to the patient, rather than to the doppelgnger. The patient quickly tells me that he is not currently believing that this is true and that he knows there is no such thing as "two of [him]". We reviewed the told that his illness has taken over the years in the number of spheres of endeavor, including academic, social, safety, housing, legal, physical health, and comfort. He notes that, for example, during manic episodes he impulsively spends or gives away all of his money and then is forced to sleep on the streets or, more recently, on the floor of a casino until he was ejected. He is also found himself homeless and delusional in [facility], and has had to beg for food or steal it to survive. He notes that he has had repeated academic failures and has been advised that he is in serious danger of being disenrolled from [facility]. At the same time, the patient says that he does not like medications and specifically cites sexual side effects. However, the nature of the sexual side effects seem vague. He begins by saying "I normally wake up every morning with [an erection)." When I take [psychiatric medications) I have to [masturbate) to get [an erection). I was able to get the patient to reconcile both issues; the multiple serious cost that not taking medications have caused him in his life, some of which are noted above, and the sexual side effects that he would like to not have. He wanted to discuss alternatives to medications, and wondered if he could not have his bipolar disorder "fixed" with psychotherapy. He also notes that, in the past, he responded favorably to ECT. I educated the patient regarding the likelihood that talk therapy would have a lasting, favorable influence on his bipolar disorder symptoms, at least not to the degree that he would be considered stabilized. I noted that ECT can be effective for bipolar disorder, but often would require fairly regular maintenance treatments. He was seemingly able to understand and agree when I explained to him that it looked to me as of his choice is to take psychiatric medications and put up with certain sexual side effects that may resolve with time, or lead to chaotic life marked by failures, legal problems (he was recently arrested), poverty, health compromises, and unhappiness. The patient's response was simple, "if that is the way it is then, yes, I do need to take medicine as prescribed." Physical Exam Psychiatric Orientation: alert, oriented x 3 and cooperative Apperance: appropriately dressed and appropriately groomed Eye Contact: + fair eye contact Restlessness. Speech: + pressured speech Affect: + irritable affect "I think my mood is good." Thought Process: + flight of ideas Thought Content: reality based without delusions Suicidal Thoughts: denies suicidal thoughts Homicidal Thoughts: denies homicidal thoughts Hallucinations: no auditory hallucinations and no visual hallucinations Cognition: recent memory grossly intact, remote memory grossly intact and language grossly intact; + attention not intact Estimated Intelligence: + above average estimated intelligence Insight: + limited insight Judgement: + fair judgement Vital Signs (Past 24 Hours) Last Vital Signs Temp 36.4 C L 10/27/19 07:09 Pulse 108 H 10/27/19 07:10 Resp 18 10/27/19 07:09 BP 94/57 L 10/27/19 07:10 Pulse Ox 99 10/21/19 23:37 Results & Data ([facility]) Laboratory Results Laboratory Results - last 24 hr 10/27/19 10/27/19 07:52 07:52 Fasting Glucose 93 Triglycerides 151 H Cholesterol 176 LDL Cholesterol, Calc 108 VLDL Cholesterol, Calc 30 HDL Cholesterol 38 Cholesterol/HDL Ratio 5 [place] 0.6 Current Inpatient Medications Current Inpatient Medications: Current Inpatient Medications Acetaminophen (Tylenol) 650 mg PO Q4H PRN PRN Reason: Headache or Minor Fever Stop: 11/20/19 23:14 Al Hydrox/Mg Hydrox/Simethicone (Maalox) 30 ml PO Q4H PRN PRN Reason: GI Upset Stop: 11/20/19 23:14 Benztropine Mesylate (Cogentin) 1 mg PO Q6H PRN PRN Reason: dystonia Stop: 11/20/19 23:20 Bismuth Subsalicylate (Kaopectate) 15 ml PO PRN PRN PRN Reason: Loose Stool Stop: 11/20/19 23:14 Haloperidol (Haldol) 5 mg PO Q4H PRN PRN Reason: agitation r/t psychosis Stop: 11/20/19 23:16 Last Admin: 10/22/19 08:03 Dose: 5 mg Documented by: Haloperidol Lactate (Haldol) 5 mg IM Q4H PRN PRN Reason: Agitation Stop: 11/20/19 23:16 Hydroxyzine HCl (Vistaril) 50 mg PO HSZ PRN PRN Reason: Insomnia Stop: 11/20/19 23:14 Last Admin: 10/27/19 02:53 Dose: 50 mg Documented by: Hydroxyzine HCl (Vistaril) 25 mg PO Q4H PRN PRN Reason: Anxiety Stop: 11/20/19 23:14 [place] Carbonate (Eskalith) 450 mg PO BID [facility] Stop: 11/26/19 20:59 Lorazepam (Ativan) 2 mg IM Q4H PRN PRN Reason: Agitation Stop: 11/20/19 23:17 Lorazepam (Ativan) 1 mg PO Q4H PRN PRN Reason: Anxiety/Agitation Stop: 11/20/19 23:19 Last Admin: 10/26/19 22:15 Dose: 1 mg Documented by: Magnesium Hydroxide (Milk Of Magnesia) 30 ml PO DAILY PRN PRN Reason: Constipation Stop: 11/20/19 23:14 Miscellaneous (Remove Nicoderm Patch) 1 ea N/A DAILY@[id number] [facility] Stop: 11/22/19 08:58 Last Admin: 10/27/19 07:29 Dose: Not Given Documented by: Nicotine (Nicoderm Cq) 14 mg TD [facility] Stop: 11/22/19 08:59 Last Admin: 10/27/19 07:29 Dose: Not Given Documented by: Nicotine Polacrilex (Nicorette 2mg) 1 piece MT Q1H PRN PRN Reason: Nicotine Withdrawal Stop: 11/21/19 08:40 Last Admin: 10/27/19 14:16 Dose: 1 piece Documented by: Paliperidone (Invega) [facility] [place]: 11/24/19 08:59 Last Admin: 10/27/19 07:27 Dose: 6 mg Documented by: Risperidone (Risperdal) 0.5 mg PO Q4H PRN PRN Reason: psychosis Stop: 11/21/19 09:13 Last Admin: 10/23/19 15:24 Dose: 0.5 mg Documented by: Sodium Chloride ([place] Nasal) 1 - 2 sprays NA PRN PRN PRN Reason: Nasal Dryness/Congestion Stop: 11/20/19 23:14 Mental Health & Subst Abuse Tx Therapist Name of Therapist: Edu Billings [employer] Officer Name of Armed [employer] Protection Officer: Not now but Carol Castanon in the past Post Discharge Appointments Primary Care Physician Name Of Family Doctor: [facility]
[2019-10-27] MEDS: LITHIUM CARBONATE 450 MG TABCR PO SCH (20:50)
[2019-10-28] MEDS: NICOTINE 14 MG/24 HR PATCH TD SCH (08:13)
[2019-10-28] MEDS: LITHIUM CARBONATE 450 MG TABCR PO SCH ×2 (08:14→22:00)
[2019-10-28] MEDS: PALIPERIDONE 3 MG TABCR PO SCH (08:14)
[2019-10-28] MEDS: NICOTINE POLACRILEX 2 MG GUM MT PRN ×3 (08:14→21:15)
--- NOTE | 2019-10-28 15:18 | Psychiatric Progress Note ---
Date of Service October 28, 2019 Impression / Recommendations Impression 24-year-old male admitted involuntarily for inpatient psychiatric treatment on 10/21/2019 after presenting to the ED with disorganized thoughts and demonstrating bizarre behaviors. Friend brought patient to the ED and was safety planned home, but rapidly returned to the ED within hours. Petitioning statement was completed by friend and patient was brought to the ED on a 302 warrant. Pt initially reported minimal compliance with medication when in the ED, but lithium level was 0.5 in the ED and he is now stating he has been compliant. We discussed continuing his home medications at this time, which he was agreeable with and has already willingly taking lithium without incident. Will attempt to gather collateral information from his outpatient psychiatric provider and the [facility] where he was most recently hospitalized. It would be ideal for patient to be on an ALCALA given history of noncompliance, and he has agreed to trial of oral paliperidone with plan for conversion to Invega Sustenna given likely tolerability of administration and q4 week dosing being most ideal in the setting of his noncompliance with medications and appointments. He is expressing desire to start ALCALA form of Invega. Patient is now attending group programming and has improved to the degree that he is less irritable and more organized. We will engage patient in meetings with [facility] Adv[facility] to discuss academic standing. Pt would benefit again from a bilingual patient support caseworker, as he had these services in the past. Pt remains very disorganized, tangential, and is demonstrating looseness of association. His manic behavior increases his risk of harm to self and others, and inpatient psychiatric treatment is medically necessary at this time. 303 petition was granted on 10/25. Invega is being taken by pt and attmepting to obtain Invega Sustena ALCALA form of this medicaiton but first level of prior auth was declined and being processed further bey insurance currently. Invega now 6mg a day with considersation of f urther ttiration Coquille being rx'd and titrated in view of persistent symptoms of mitra. (1) Bipolar disorder, current episode manic severe with psychotic features: 10/21 - Diagnosis of bipolar I disorder, most recently prescribed risperidone 1mg BID and lithium 300mg BID. Pt admits to poor compliance with medications, though lithium level in ED was 0.5 which demonstrates some level of medication administration. Will resume these medications initially, recheck lithium level in 5 days. Will have risperidone 0.5mg available q4h prn for psyc hosis/agitation. - Pt demanding to leave, stating he does not need to be here. He is very disorganized at this time and demonstrating looseness of associations. - Admitted involuntarily for psychiatric treatment - 302 expires on 10/26/2019 at 1933 - Coordinate care with outpatient providers; medications most recently prescribed at [facility] by Tari Brasher PA-C - Coordinate with the University and patient's friend to gather collateral information - Will encourage attendance of group programming once patient is able to demonstrate appropriateness 10/22 - continue risperdal and lithium as above with prn haldol as above, Coquille level ordered for 10/27/19. Agree with Consideration with ALCALA but patient is not able to tolerate that discussion at this time. - pt is on 302 comittment, treatment team and by evaluation LOS estimated to be 7-9days, 302 expires 10/26/19 at 1933, will file for 303 hearing form AM of 10/26/19 as he remains illogical, agitated and unable to function in the com replaced by [facility], unable to address safety risks that lead to hospitalization leaving inpatient care as the least restrictive and most appropriate level of care at this time, continue MNPR due to level of agitation and intrusiveness requiring consistent redirection of interpersonal space boundaries - coordinated care with outpt providers, and [facility]ard, - waiting records from [facility] to see if Fasting metabolic labs more recent than 08/2017 are available, if not FBS and FLipids will need ordered prior to discharge, ideally could be added to 10/27/19 labs if not before 10/23 - Pt continues to be tangential, hyperverbal, irritable, and demonstrate poor boundaries and intrusive behavior - Fortunately, he was agreeable with pursing an ALCALA and paliperidone was discussed given likelihood of tolerability and q4 week injection schedule being most ideal with regard to patient's history of noncompliance with medications/appointments - Will hold risperidone and initiate paliperidone 3mg dose today, titrating to 6mg qAM starting tomorrow morning. Can continue prn risperidone for the time being - Pt has verbalized willingness for communication with [employer] office - He is unwilling to consider case management referral at this time - Awaiting records from the [facility] regarding more recent fasting labs - 303 hearing scheduled for 10/26/2019 - Continue MNPR 10/24 - continue treatment plan -ordered fasting labs since not clear when last fasting labs obtained -303 hearing scheduled for 10/26/2019 and review this with pt and reviewed rationale for admission and ongoing treatment at hospital level of care being perused 10/25 continue treatment plan continue trying to obtain ALCALA Sustenna form of Invega addressing prior Auth process of his insurance reality testing and psychoeducation of pt's dx and current symptoms consider further titration of Invega oral dose 10/26 -No progress today in terms of obtaining prior authorization for Invega Sustenna -The patient's lithium level this morning was 0.6. He continues to exhibit pressured speech and flight of ideas. Today, we offered him an extra dose 300 mg of lithium carbonate immediate release, and then increased his dose of lithium carbonate to 450 mg twice a day (extended release). -The patient admits that he has a history of opening capsules" snorting" through nasal insufflation the contents, including lithium capsules. For that reason, we are preferring to give him tablets. -The plan is to continue oral Invega 6 mg a day and to convert to the long- acting intramuscular form once it is authorized. 10/27 -Trial clonazepam 0.5 mg p.o. nightly for antimanic effect and sleep augmentation (2) Nicotine dependence: 10/22 - continue to offer NRT in form of patch and gum. Patient is pre- contemplational and declines smoking cessation resources at this time. for note he has h/o MJ abuse but UDS negative in ED and he states he has not smoked in 2-3 months, carried forward in this note for future provider knowledge. No action needed at this time. 10/23 - Continues to demand transfer to the [facility] where he would be permitted to smoke - Opportunity for lateral transfer was explored and facility declined patient - He makes it very clear he has not intention to quit smoking at this time' 10/24 using nicotine gum for cravings, not open to smoking cessation education and too manic to handle this conversation at this time 10/26 -The patient tells us that he would like to stop smoking, but adds "probably not right now." He has been asking for his Nicorette gum on a regular basis, and does not respond to suggestions that he extend the duration between uses. Risk Factors Assessment Male: Yes Mental Health Diagnoses: Yes Substance Use Disorders: Yes Previous Psychiatric Hospitalization: Yes Smoker: Yes Protective Factors Assessment : No Responsible for Young Children: No Employed: No Supportive Family: No (living in [place]) Interval History Identifying Information YASH MOMIN is a 24-year-old M who currently lives in [place] in close proximity to a friend. Pt was brought to the ED earlier in the day 10/21/19, and was safety planned home with a friend. Pt has a history of bipolar disorder with history of poor medication compliance, and returned to the ED and admitted on 10/21/19 23:15 on a 302 involuntary commitment for disorganized thoughts and mitra, having reportedly verbalizing to his friend that he was considering whether or not to jump from a window. 303 petition granted on am of 10/26/2019 Chief Complaint "I worry for my future ". Review of Systems Sleep Information Total Hours of Sleep: 4 Sleep Comments: yash had received a prn of ativan at [facility] on the evening shift. he was awake at 0240 wanting to eat snacks as he ususlly does. he was reminded he was NPO for fasting labs-he said he had not been told. after further discussion, he drank a cup of decaff hot tea, took a prn dose of vistaril for sleep aid and fell back to sleep by 0330 Meal Information Percent Meal Consumed - Breakfast: 100 Percent Meal Consumed - Lunch: 100 Percent Meal Consumed - Dinner: 100 Subjective Subjective Patient was seen & assessed and interval progress reviewed with treatment team. Coquille increased to 450 mg twice a day on Wednesday following lithium level of 0.6. Remains compliant with oral Invega 6 mg a day. Staff report he was up ambulating overnight, appearing animated and at times demonstrating some unusual behavior such as a repeated throwing motion of the arm. Feeling worried was "smart" today on interview he is eager to talk. He asks about his medicines, i ndications, and expresses concern for future possibility of dementia associated with bipolar disorder however this conversation is extremely nonlinear. Interspersed he speaks of his keenness for studying languages to learn about people, the fact that he is multilingual, how people speaking [place] is different than our people speak in the [place], he speaks of various movies he has seen and other life experiences. I reflected that his thought process remains very fast which I attributed to his underlying bipolar disorder which he acknowledges requires treatment. Reviewed his recollection of treatment history. He recalls positive response to ECT in [place] but not eager to repeat as benefit was not sustained. I suggested we consider a sleep inducing agent such as a benzodiazepine to promote more restful sleep and slow down his thought racing and he reports a prior positive response to clonazepam in [place] which he perceived was also helpful for feelings of anxiety. He states that he constantly feels like someone is looking at him from behind which makes him uneasy. I reviewed the PDMP and no controlled medicines on record. He denies a history of benzodiazepine abuse. Physical Exam Psychiatric Orientation: alert and cooperative Apperance: + disheveled Eye Contact: good eye contact Motor Behavior: + psychomotor agitation (Mild) Speech: + pressured speech Affect: no irritable affect Mood: + anxious mood Thought Process: + tangential thought process and + flight of ideas Thought Content: + preoccupation Suicidal Thoughts: denies suicidal thoughts Homicidal Thoughts: denies homicidal thoughts Hallucinations: no auditory hallucinations and no visual hallucinations Estimated Intelligence: + above average estimated intelligence Insight: + limited insight (improving) Vital Signs (Past 24 Hours) Last Vital Signs Temp 36.4 C L 10/28/19 06:50 Pulse 74 10/28/19 06:51 Resp 18 10/28/19 06:50 BP 123/86 10/28/19 06:51 Pulse Ox 99 10/21/19 23:37 Results & Data ([facility]) Current Inpatient Medications Current Inpatient Medications: Current Inpatient Medications Acetaminophen (Tylenol) 650 mg PO Q4H PRN PRN Reason: Headache or Minor Fever Stop: 11/20/19 23:14 Al Hydrox/Mg Hydrox/Simethicone (Maalox) 30 ml PO Q4H PRN PRN Reason: GI Upset Stop: 11/20/19 23:14 Benztropine Mesylate (Cogentin) 1 mg PO Q6H PRN PRN Reason: dystonia Stop: 11/20/19 23:20 Bismuth Subsalicylate (Kaopectate) 15 ml PO PRN PRN PRN Reason: Loose Stool Stop: 11/20/19 23:14 Clonazepam (Klonopin) 0.5 mg PO HS JANET Stop: 11/27/19 21:59 Haloperidol (Haldol) 5 mg PO Q4H PRN PRN Reason: agitation r/t psychosis Stop: 11/20/19 23:16 Last Admin: 10/22/19 08:03 Dose: 5 mg Documented by: Haloperidol Lactate (Haldol) 5 mg IM Q4H PRN PRN Reason: Agitation Stop: 11/20/19 23:16 Hydroxyzine HCl (Vistaril) 50 mg PO HSZ PRN PRN Reason: Insomnia Stop: 11/20/19 23:14 Last Admin: 10/27/19 02:53 Dose: 50 mg Documented by: Hydroxyzine HCl (Vistaril) 25 mg PO Q4H PRN PRN Reason: Anxiety Stop: 11/20/19 23:14 Coquille Carbonate (Eskalith) 450 mg PO BID [facility] Stop: 11/26/19 20:59 Last Admin: 10/28/19 08:14 Dose: 450 mg Documented by: Lorazepam (Ativan) 2 mg IM Q4H PRN PRN Reason: Agitation Stop: 11/20/19 23:17 Lorazepam (Ativan) 1 mg PO Q4H PRN PRN Reason: Anxiety/Agitation Stop: 11/20/19 23:19 Last Admin: 10/26/19 22:15 Dose: 1 mg Documented by: Magnesium Hydroxide (Milk Of Magnesia) 30 ml PO DAILY PRN PRN Reason: Constipation Stop: 11/20/19 23:14 Miscellaneous (Remove Nicoderm Patch) 1 ea N/A DAILY@[id number] [facility] Stop: 11/22/19 08:58 Last Admin: 10/28/19 08:12 Dose: Not Given Documented by: Nicotine (Nicoderm Cq) 14 mg TD [facility] Stop: 11/22/19 08:59 Last Admin: 10/28/19 08:13 Dose: Not Given Documented by: Nicotine Polacrilex (Nicorette 2mg) 1 piece MT Q1H PRN PRN Reason: Nicotine Withdrawal Stop: 11/21/19 08:40 Last Admin: 10/28/19 08:14 Dose: 1 piece Documented by: Paliperidone (Invega) 6 mg PO QAM [facility] Stop: 11/24/19 08:59 Last Admin: 10/28/19 08:14 Dose: 6 mg Documented by: Risperidone (Risperdal) 0.5 mg PO Q4H PRN PRN Reason: psychosis Stop: 11/21/19 09:13 Last Admin: 10/23/19 15:24 Dose: 0.5 mg Documented by: Sodium Chloride ([place] Nasal) 1 - 2 sprays NA PRN PRN PRN Reason: Nasal Dryness/Congestion Stop: 11/20/19 23:14 Mental Health & Subst Abuse Tx Therapist Name of Therapist: Edu Billings [employer] Member Name of Air Crew Member: Not now but Carol Castanon in the past Post Discharge Appointments Primary Care Physician Name Of Family Doctor: [facility]
[2019-10-28] MEDS: clonazePAM 0.5 MG TAB PO SCH (22:00)
[2019-10-29] MEDS: LITHIUM CARBONATE 450 MG TABCR PO SCH ×2 (07:23→20:58)
[2019-10-29] MEDS: PALIPERIDONE 3 MG TABCR PO SCH (07:23)
[2019-10-29] MEDS: NICOTINE 14 MG/24 HR PATCH TD SCH (07:30)
--- NOTE | 2019-10-29 16:01 | Psychiatric Progress Note ---
Date of Service October 29, 2019 Impression / Recommendations Impression 24-year-old male admitted involuntarily for inpatient psychiatric treatment on 10/21/2019 after presenting to the ED with disorganized thoughts and demonstrating bizarre behaviors. Friend brought patient to the ED and was safety planned home, but rapidly returned to the ED within hours. Petitioning statement was completed by friend and patient was brought to the ED on a 302 warrant. Pt initially reported minimal compliance with medication when in the ED, but lithium level was 0.5 in the ED and he is now stating he has been compliant. We discussed continuing his home medications at this time, which he was agreeable with and has already willingly taking lithium without incident. Will attempt to gather collateral information from his outpatient psychiatric provider and the [facility] where he was most recently hospitalized. It would be ideal for patient to be on an ALCALA given history of noncompliance, and he has agreed to trial of oral paliperidone with plan for conversion to Invega Sustenna given likely tolerability of administration and q4 week dosing being most ideal in the setting of his noncompliance with medications and appointments. He is expressing desire to start ALCALA form of Invega. Patient is now attending group programming and has improved to the degree that he is less irritable and more organized. We will engage patient in meetings with [facility] to discuss academic standing. Pt would benefit again from a manager rn case, as he had these services in the past. Pt remains very disorganized, tangential, and is demonstrating looseness of association. His manic behavior increases his risk of harm to self and others, and inpatient psychiatric treatment is medically necessary at this time. 303 petition was granted on 10/25. Invega is being taken by pt and attmepting to obtain Invega Sustena ALCALA form of this medicaiton but first level of prior auth was declined and being processed further bey insurance currently. Invega now 6mg a day with considersation of f urther ttiration [place] being rx'd and titrated in view of persistent symptoms of mitra. (1) Bipolar disorder, current episode manic severe with psychotic features: 10/21 - Diagnosis of bipolar I disorder, most recently prescribed risperidone 1mg BID and lithium 300mg BID. Pt admits to poor compliance with medications, though lithium level in ED was 0.5 which demonstrates some level of medication administration. Will resume these medications initially, recheck lithium level in 5 days. Will have risperidone 0.5mg available q4h prn for psyc hosis/agitation. - Pt demanding to leave, stating he does not need to be here. He is very disorganized at this time and demonstrating looseness of associations. - Admitted involuntarily for psychiatric treatment - 302 expires on 10/26/2019 at 1933 - Coordinate care with outpatient providers; medications most recently prescribed at [place] by Tari Brasher PA-C - Coordinate with the University and patient's friend to gather collateral information - Will encourage attendance of group programming once patient is able to demonstrate appropriateness 10/22 - continue risperdal and lithium as above with prn haldol as above, [place] level ordered for 10/27/19. Agree with Consideration with ALCALA but patient is not able to tolerate that discussion at this time. - pt is on 302 comittment, treatment team and by evaluation LOS estimated to be 7-9days, 302 expires 10/26/19 at 1933, will file for 303 hearing form AM of 10/26/19 as he remains illogical, agitated and unable to function in the com [facility], unable to address safety risks that lead to hospitalization leaving inpatient care as the least restrictive and most appropriate level of care at this time, continue MNPR due to level of agitation and intrusiveness requiring consistent redirection of interpersonal space boundaries - coordinated care with outpt providers, and [place], - waiting records from [place] to see if Fasting metabolic labs more recent than 08/2017 are available, if not FBS and FLipids will need ordered prior to discharge, ideally could be added to 10/27/19 labs if not before 10/23 - Pt continues to be tangential, hyperverbal, irritable, and demonstrate poor boundaries and intrusive behavior - Fortunately, he was agreeable with pursing an ALCALA and paliperidone was discussed given likelihood of tolerability and q4 week injection schedule being most ideal with regard to patient's history of noncompliance with medications/appointments - Will hold risperidone and initiate paliperidone 3mg dose today, titrating to 6mg qAM starting tomorrow morning. Can continue prn risperidone for the time being - Pt has verbalized willingness for communication with [employer] office - He is unwilling to consider case management referral at this time - Awaiting records from the [facility] regarding more recent fasting labs - 303 hearing scheduled for 10/26/2019 - Continue MNPR 10/24 - continue treatment plan -ordered fasting labs since not clear when last fasting labs obtained -303 hearing scheduled for 10/26/2019 and review this with pt and reviewed rationale for admission and ongoing treatment at hospital level of care being perused 10/25 continue treatment plan continue trying to obtain ALCALA Sustenna form of Invega addressing prior Auth process of his insurance reality testing and psychoeducation of pt's dx and current symptoms consider further titration of Invega oral dose 10/26 -No progress today in terms of obtaining prior authorization for Invega Sustenna -The patient's lithium level this morning was 0.6. He continues to exhibit pressured speech and flight of ideas. Today, we offered him an extra dose 300 mg of lithium carbonate immediate release, and then increased his dose of lithium carbonate to 450 mg twice a day (extended release). -The patient admits that he has a history of opening capsules" snorting" through nasal insufflation the contents, including lithium capsules. For that reason, we are preferring to give him tablets. -The plan is to continue oral Invega 6 mg a day and to convert to the long- acting intramuscular form once it is authorized. 10/27 -Trial clonazepam 0.5 mg p.o. nightly for antimanic effect and sleep augmentation 10/28 -Tolerating clonazepam with perhaps some improvement in sleep. We will continue treatment plan unchanged as above. -Reschedule next lithium trough for October 31 which will be 5 days following last dose escalation (2) Nicotine dependence: 10/22 - continue to offer NRT in form of patch and gum. Patient is pre- contemplational and declines smoking cessation resources at this time. for note he has h/o MJ abuse but UDS negative in ED and he states he has not smoked in 2-3 months, carried forward in this note for future provider knowledge. No action needed at this time. 10/23 - Continues to demand transfer to the [facility] where he would be permitted to smoke - Opportunity for lateral transfer was explored and facility declined patient - He makes it very clear he has not intention to quit smoking at this time' 10/24 using nicotine gum for cravings, not open to smoking cessation education and too manic to handle this conversation at this time 10/26 -The patient tells us that he would like to stop smoking, but adds "probably not right now." He has been asking for his Nicorette gum on a regular basis, and does not respond to suggestions that he extend the duration between uses. Risk Factors Assessment Male: Yes Mental Health Diagnoses: Yes Substance Use Disorders: Yes Previous Psychiatric Hospitalization: Yes Smoker: Yes Protective Factors Assessment : No Responsible for Young Children: No Employed: No Supportive Family: No (living in [facility]) Interval History Identifying Information YASH MOMIN is a 24-year-old M who currently lives in [place] in close proximity to a friend. Pt was brought to the ED earlier in the day 10/21/19, and was safety planned home with a friend. Pt has a history of bipolar disorder with history of poor medication compliance, and returned to the ED and admitted on 10/21/19 23:15 on a 302 involuntary commitment for disorganized thoughts and mitra, having reportedly verbalizing to his friend that he was considering whether or not to jump from a window. 303 petition granted on am of 10/26/2019 Chief Complaint "I want to talk". Review of Systems Notes denies dizziness Sleep Information Total Hours of Sleep: 6.5 Sleep Comments: yash had received a prn of ativan at hs on the evening shift. he was awake at 0240 wanting to eat snacks as he ususlly does. he was reminded he was NPO for fasting labs-he said he had not been told. after further discussion, he drank a cup of decaff hot tea, took a prn dose of vistaril for sleep aid and fell back to sleep by 0330 Meal Information Percent Meal Consumed - Breakfast: 100 Percent Meal Consumed - Lunch: 80 Percent Meal Consumed - Dinner: 100 Subjective Subjective Patient was seen & assessed and interval progress reviewed with treatment team. Patient reportedly slept longer last evening logging about 6-1/2 hours. He appears eager to speak this morning leaving group quickly. He reports positive response to initiation of clonazepam last evening stating that he did get more "REM sleep" and felt well rested on waking this morning. He also describes feeling less anxious, however I find him more perseverative we focused on perceived injustice of confinement again today. He demonstrates some insight regarding acceptance of bipolar diagnosis and need for treatment but expresses worry that he will be rehospitalized again in the future against his well because of his diagnosis. We had a fairly lengthy discussion regarding the the rapeutic benefit of maintenance mood stabilizer medication to reduce risk for future severe depression or mitra which might impact his decisional capacity. Physical Exam Psychiatric Orientation: alert Apperance: + disheveled Eye Contact: good eye contact Motor Behavior: steady gait and station Speech: + pressured speech (Overproductive) Affect: no labile affect and no angry affect Mood: + angry mood Thought Process: + perseveration Thought Content: + preoccupation Suicidal Thoughts: denies suicidal thoughts Homicidal Thoughts: denies homicidal thoughts Hallucinations: no auditory hallucinations Cognition: recent memory grossly intact Insight: + limited insight Judgement: + limited judgement Vital Signs (Past 24 Hours) Last Vital Signs Temp 36.5 C 10/29/19 06:22 Pulse 111 H 10/29/19 06:23 Resp 16 10/29/19 06:22 BP 109/70 10/29/19 06:23 Pulse Ox 99 10/21/19 23:37 Results & Data ([facility]) Current Inpatient Medications Current Inpatient Medications: Current Inpatient Medications Acetaminophen (Tylenol) 650 mg PO Q4H PRN PRN Reason: Headache or Minor Fever Stop: 11/20/19 23:14 Al Hydrox/Mg Hydrox/Simethicone (Maalox) 30 ml PO Q4H PRN PRN Reason: GI Upset Stop: 11/20/19 23:14 Benztropine Mesylate (Cogentin) 1 mg PO Q6H PRN PRN Reason: dystonia Stop: 11/20/19 23:20 Bismuth Subsalicylate (Kaopectate) 15 ml PO PRN PRN PRN Reason: Loose Stool Stop: 11/20/19 23:14 Clonazepam (Klonopin) 0.5 mg PO HS JANET Stop: 11/27/19 21:59 Last Admin: 10/28/19 22:00 Dose: 0.5 mg Documented by: Haloperidol (Haldol) 5 mg PO Q4H PRN PRN Reason: agitation r/t psychosis Stop: 11/20/19 23:16 Last Admin: 10/22/19 08:03 Dose: 5 mg Documented by: Haloperidol Lactate (Haldol) 5 mg IM Q4H PRN PRN Reason: Agitation Stop: 11/20/19 23:16 Hydroxyzine HCl (Vistaril) 50 mg PO HSZ PRN PRN Reason: Insomnia Stop: 11/20/19 23:14 Last Admin: 10/27/19 02:53 Dose: 50 mg Documented by: Hydroxyzine HCl (Vistaril) 25 mg PO Q4H PRN PRN Reason: Anxiety Stop: 11/20/19 23:14 [place] Carbonate (Eskalith) 450 mg PO BID [facility] Stop: 11/26/19 20:59 Last Admin: 10/29/19 07:23 Dose: 450 mg Documented by: Lorazepam (Ativan) 2 mg IM Q4H PRN PRN Reason: Agitation Stop: 11/20/19 23:17 Lorazepam (Ativan) 1 mg PO Q4H PRN PRN Reason: Anxiety/Agitation Stop: 11/20/19 23:19 Last Admin: 10/26/19 22:15 Dose: 1 mg Documented by: Magnesium Hydroxide (Milk Of Magnesia) 30 ml PO DAILY PRN PRN Reason: Constipation Stop: 11/20/19 23:14 Miscellaneous (Remove Nicoderm Patch) 1 ea N/A DAILY@[id number] [facility] Stop: 11/22/19 08:58 Last Admin: 10/29/19 07:29 Dose: Not Given Documented by: Nicotine (Nicoderm Cq) 14 mg TD QAM [facility] Stop: 11/22/19 08:59 Last Admin: 10/29/19 07:30 Dose: Not Given Documented by: Nicotine Polacrilex (Nicorette 2mg) 1 piece MT Q1H PRN PRN Reason: Nicotine Withdrawal Stop: 11/21/19 08:40 Last Admin: 10/28/19 21:15 Dose: 1 piece Documented by: Paliperidone (Invega) 6 mg PO QAM [facility] Stop: 11/24/19 08:59 Last Admin: 10/29/19 07:23 Dose: 6 mg Documented by: Risperidone (Risperdal) 0.5 mg PO Q4H PRN PRN Reason: psychosis Stop: 11/21/19 09:13 Last Admin: 10/23/19 15:24 Dose: 0.5 mg Documented by: Sodium Chloride ([place] Nasal) 1 - 2 sprays NA PRN PRN PRN Reason: Nasal Dryness/Congestion Stop: 11/20/19 23:14 Mental Health & Subst Abuse Tx Therapist Name of Therapist: Edu Billings [facility] Applications Tester Name of Applications Tester: Not now but Carol Castanon in the past Post Discharge Appointments Primary Care Physician Name Of Family Doctor: [facility]
[2019-10-29] MEDS: clonazePAM 0.5 MG TAB PO SCH (20:58)
[2019-10-30] MEDS: NICOTINE 14 MG/24 HR PATCH TD SCH (09:48)
[2019-10-30] MEDS: PALIPERIDONE 3 MG TABCR PO SCH (09:48)
[2019-10-30] MEDS: LITHIUM CARBONATE 450 MG TABCR PO SCH ×2 (09:48→22:01)
--- NOTE | 2019-10-30 11:16 | Psychiatric Progress Note ---
Date of Service October 30, 2019 Impression / Recommendations Impression 24-year-old male admitted involuntarily for inpatient psychiatric treatment on 10/21/2019 after presenting to the ED with disorganized thoughts and demonstrating bizarre behaviors. Friend brought patient to the ED and was safety planned home, but returned to the ED within hours. Petitioning statement was completed by friend and patient was brought to the ED on a 302 warrant, indicating he had been noncompliant with medications for the past week, with worsening mental status/mood symptoms, disorganized thinking, confusion, and erratic behavior in the community. He stated he did not know what was real or a dream, and the only way to know would be to kill himself. [facility] was resumed and titrated, and paliperidone started with a plan to transition to a ALCALA given history of noncompliance, but his insurance is refusing prior authorization. Patient is now attending some groups and has improved to the degree that he is less irritable and slightly more organized, but remains tangential, with loosening of associations, poor mood, and unable to participate in discharge planning due to the severity of his mood and psychotic symptoms. We will engage patient in meetings with Student Care and Advocacy to discuss academic standing, and have recommended a upper caser. His manic behavior increases his risk of harm to self and others, and inpatient psychiatric treatment is medically necessary at this time. He is on a 303 as of 10/25. (1) Bipolar disorder, current episode manic severe with psychotic features: 10/21 - Diagnosis of bipolar I disorder, most recently prescribed risperidone 1mg BID and lithium 300mg BID. Pt admits to poor compliance with medications, though lithium level in ED was 0.5 which demonstrates some level of medication administration. Will resume these medications initially, recheck lithium level in 5 days. Will have risperidone 0.5mg available q4h prn for psychosis/agitation. - Pt demanding to leave, stating he does not need to be here. He is very disorganized at this time and demonstrating looseness of associations. - Admitted involuntarily for psychiatric treatment - 302 expires on 10/26/2019 at 1933 - Coordinate care with outpatient providers; medications most recently prescribed at [place] by Tari Brasher PA-C - Coordinate with the University and patient's friend to gather collateral information - Will encourage attendance of group programming once patient is able to demonstrate appropriateness 10/22 - continue risperdal and lithium as above with prn haldol as above, [facility] level ordered for 10/27/19. Agree with Consideration with ALCALA but patient is not able to tolerate that discussion at this time. - pt is on 302 comittment, treatment team and by evaluation LOS estimated to be 7-9days, 302 expires 10/26/19 at 1933, will file for 303 hearing form AM of 10/26/19 as he remains illogical, agitated and unable to function in the community, unable to address safety risks that lead to hospitalization leaving inpatient care as the least restrictive and most appropriate level of care at this time, continue MNPR due to level of agitation and intrusiveness requiring consistent redirection of interpersonal space boundaries - coordinated care with outpt providers, and [place], - waiting records from [place] to see if Fasting metabolic labs more recent than 08/2017 are available, if not FBS and FLipids will need ordered prior to discharge, ideally could be added to 10/27/19 labs if not before 10/23 - Pt continues to be tangential, hyperverbal, irritable, and demonstrate poor boundaries and intrusive behavior - Fortunately, he was agreeable with pursing an ALCALA and paliperidone was discussed given likelihood of tolerability and q4 week injection schedule being most ideal with regard to patient's history of noncompliance with medications/appointments - Will hold risperidone and initiate paliperidone 3mg dose today, titrating to 6mg qAM starting tomorrow morning. Can continue prn risperidone for the time being - Pt has verbalized willingness for communication with [facility]'s Student Care and Advocacy office - He is unwilling to consider case management referral at this time - Awaiting records from the [facility] regarding more recent fasting labs - 303 hearing scheduled for 10/26/2019 - Continue MNPR 10/24 - continue treatment plan -ordered fasting labs since not clear when last fasting labs obtained -303 hearing scheduled for 10/26/2019 and review this with pt and reviewed rationale for admission and ongoing treatment at hospital level of care being perused 10/25 continue treatment plan continue trying to obtain ALCALA Sustenna form of Invega addressing prior Auth process of his insurance reality testing and psychoeducation of pt's dx and current symptoms consider further titration of Invega oral dose 10/26 -No progress today in terms of obtaining prior authorization for Invega Sustenna -The patient's lithium level this morning was 0.6. He continues to exhibit pressured speech and flight of ideas. Today, we offered him an extra dose 300 mg of lithium carbonate immediate release, and then increased his dose of lithium carbonate to 450 mg twice a day (extended release). -The patient admits that he has a history of opening capsules" snorting" through nasal insufflation the contents, including lithium capsules. For that reason, we are preferring to give him tablets. -The plan is to continue oral Invega 6 mg a day and to convert to the long- acting intramuscular form once it is authorized. 10/27 -Trial clonazepam 0.5 mg p.o. nightly for antimanic effect and sleep augmentation 10/28 -Tolerating clonazepam with perhaps some improvement in sleep. We will continue treatment plan unchanged as above. -Reschedule next lithium trough for Wednesday, October 31 which will be 5 days following last dose escalation 10/29 -Encourage patient to participate fully in treatment and to identify ways to achieve stability. Encourage patient to work on a more detailed/solid discharge plan, as he changes his mind frequently about his plans when he leaves the hospital. -Patient continues to refuse recommendations for a BCM and for a family meeting. -Coordinate with his insurance to determine which ALCALA's are on formulary, as he has a history of repeated hospitalizations and noncompliance with treatment. (2) Nicotine dependence: 10/22 - continue to offer NRT in form of patch and gum. Patient is pre- contemplational and declines smoking cessation resources at this time. for note he has h/o MJ abuse but UDS negative in ED and he states he has not smoked in 2-3 months, carried forward in this note for future provider knowledge. No action needed at this time. 10/23 - Continues to demand transfer to the [facility] where he would be permitted to smoke - Opportunity for lateral transfer was explored and facility declined patient - He makes it very clear he has not intention to quit smoking at this time' 10/24 using nicotine gum for cravings, not open to smoking cessation education and too manic to handle this conversation at this time 10/26 -The patient tells us that he would like to stop smoking, but adds "probably not right now." He has been asking for his Nicorette gum on a regular basis, and does not respond to suggestions that he extend the duration between uses. Risk Factors Assessment Male: Yes Mental Health Diagnoses: Yes Substance Use Disorders: Yes Previous Psychiatric Hospitalization: Yes Smoker: Yes Protective Factors Assessment : No Responsible for Young Children: No Employed: No Supportive Family: No (living in [facility]) Interval History Identifying Information YASH MOMIN is a 24-year-old M who currently lives in [place] in close proximity to a friend. Pt was brought to the ED earlier in the day 10/21/19, and was safety planned home with a friend. Pt has a history of bipolar disorder with history of poor medication compliance, and returned to the ED and admitted on 10/21/19 23:15 on a 302 involuntary commitment for disorganized thoughts and mitra, having reportedly verbalizing to his friend that he was considering whether or not to jump from a window. 303 granted 10/26/2019. Chief Complaint "I'm a returning customer now, being here is not helping me, I can make my own plans". Review of Systems Sleep Information Total Hours of Sleep: 7.75 Sleep Comments: yash had received a prn of ativan at hs on the evening shift. he was awake at 0240 wanting to eat snacks as he ususlly does. he was reminded he was NPO for fasting labs-he said he had not been told. after further discussion, he drank a cup of decaff hot tea, took a prn dose of vistaril for sleep aid and fell back to sleep by 0330 Meal Information Percent Meal Consumed - Breakfast: 100 Percent Meal Consumed - Lunch: 80 Percent Meal Consumed - Dinner: 100 Subjective Subjective Patient was seen & assessed and interval progress reviewed with treatment team. Staff report the patient sleep has improved since starting clonazepam over the weekend. Staff report he has been more isolated, only attended some groups, and laughed after a short time. He has been taking medications and eating meals. He requested to talk with the marriage and family social worker, and was focused on feeling trapped in the hospital "like a dog," initially stating he wanted to leave to return to [facility], and then stating he would stay in the [place]. He has been focused on being involuntarily committed and wanting to leave the hospital, despite frequent attempts to redirect him and encourage focus on treatment and getting healthy. His thoughts are disorganized and is often difficult to follow his train of thought in conversation. On my assessment, he perseverates on being involuntarily committed to the hospital, repeatedly stating he does not like this and wants to leave. He says "I was doing fine, did not want to be locked up, I have legal problems, my friend was trying to help me, last thing I remember I left in the middle of the night by cigarettes, was walking around talking to my mom, and I passed out. Someone came by and woke me up and took me back to Ronald's house, we had an argument, he signed a petition." He repeatedly states that he can take care of himself, is an adult, and does not need to be here because he does not like being "locked up." When asked about how things have gone in his life since we last saw him 2 years ago, he states he has not been able to be successful despite 2 attempts to return to school, has been arrested multiple times in different states, and was recently hospitalized at another psychiatric facility and then went to senior living for 10 days. He says that he was falsely accused, but then says that he broke into his roommates window "while I was in a manic episode." He says he has a publicist, and expects that his charges will be dropped. He repeatedly refers to his "manic episodes," which he describes as "when I am challenged, I get hyper, I argue with them." He says he wants to leave the hospital so that he can "solve my legal issues, I have some friends in [place], talk to them, I have an option to withdrawal this semester and return next semester, but time is running out." He says he has to go to [place] to get a new visa, and was in the process of moving out of his old apartment as he was not allowed to return due to his criminal charges, but does not know where any of his belongings are. He cannot tell me if he has had a family meeting with his friend or parents. Physical Exam Psychiatric Orientation: alert Partially cooperative Apperance: + disheveled; + inappropriately groomed Dressed in scrub pants and a baggy T-shirt, unkempt, poor hygiene and grooming Eye Contact: good eye contact Motor Behavior: steady gait and station and no abnormal motor movements Talks with thick accent, at times mumbles. Hyperverbal, mildly pressured. Appears depressed and tired, with an irritable edge. "I was doing fine," "not happy, because I'm locked up." Thought Process: + looseness of associations and + perseveration Disorganized Thought Content: + preoccupation and + cognitive distortions Gives inconsistent reports Suicidal Thoughts: denies suicidal thoughts Homicidal Thoughts: denies homicidal thoughts Hallucinations: no auditory hallucinations Cognition: + recent memory not intact and + attention not intact Insight: + poor insight Judgement: + poor judgement Vital Signs (Past 24 Hours) Last Vital Signs Temp 36.6 C 10/30/19 06:00 Pulse 77 10/30/19 06:33 Resp 17 10/30/19 06:00 BP 89/57 L 10/30/19 06:33 Pulse Ox 99 10/21/19 23:37 Results & Data ([facility]) Current Inpatient Medications Current Inpatient Medications: Current Inpatient Medications Acetaminophen (Tylenol) 650 mg PO Q4H PRN PRN Reason: Headache or Minor Fever Stop: 11/20/19 23:14 Al Hydrox/Mg Hydrox/Simethicone (Maalox) 30 ml PO Q4H PRN PRN Reason: GI Upset Stop: 11/20/19 23:14 Benztropine Mesylate (Cogentin) 1 mg PO Q6H PRN PRN Reason: dystonia Stop: 11/20/19 23:20 Bismuth Subsalicylate (Kaopectate) 15 ml PO PRN PRN PRN Reason: Loose Stool Stop: 11/20/19 23:14 Clonazepam (Klonopin) 0.5 mg PO HS JANET Stop: 11/27/19 21:59 Last Admin: 10/29/19 20:58 Dose: 0.5 mg Documented by: Haloperidol (Haldol) 5 mg PO Q4H PRN PRN Reason: agitation r/t psychosis Stop: 11/20/19 23:16 Last Admin: 10/22/19 08:03 Dose: 5 mg Documented by: Haloperidol Lactate (Haldol) 5 mg IM Q4H PRN PRN Reason: Agitation Stop: 11/20/19 23:16 Hydroxyzine HCl (Vistaril) 50 mg PO HSZ PRN PRN Reason: Insomnia Stop: 11/20/19 23:14 Last Admin: 10/27/19 02:53 Dose: 50 mg Documented by: Hydroxyzine HCl (Vistaril) 25 mg PO Q4H PRN PRN Reason: Anxiety Stop: 11/20/19 23:14 [facility] Carbonate (Eskalith) 450 mg PO BID [facility] Stop: 11/26/19 20:59 Last Admin: 10/30/19 09:48 Dose: 450 mg Documented by: Lorazepam (Ativan) 2 mg IM Q4H PRN PRN Reason: Agitation Stop: 11/20/19 23:17 Lorazepam (Ativan) 1 mg PO Q4H PRN PRN Reason: Anxiety/Agitation Stop: 11/20/19 23:19 Last Admin: 10/26/19 22:15 Dose: 1 mg Documented by: Magnesium Hydroxide (Milk Of Magnesia) 30 ml PO DAILY PRN PRN Reason: Constipation Stop: 11/20/19 23:14 Miscellaneous (Remove Nicoderm Patch) 1 ea N/A DAILY@[id number] [facility] Stop: 11/22/19 08:58 Last Admin: 10/30/19 09:48 Dose: Not Given Documented by: Nicotine (Nicoderm Cq) 14 mg TD QAM [facility] Stop: 11/22/19 08:59 Last Admin: 10/30/19 09:48 Dose: Not Given Documented by: Nicotine Polacrilex (Nicorette 2mg) 1 piece MT Q1H PRN PRN Reason: Nicotine Withdrawal Stop: 11/21/19 08:40 Last Admin: 10/28/19 21:15 Dose: 1 piece Documented by: Paliperidone (Invega) 6 mg PO QAM [facility] Stop: 11/24/19 08:59 Last Admin: 10/30/19 09:48 Dose: 6 mg Documented by: Risperidone (Risperdal) 0.5 mg PO Q4H PRN PRN Reason: psychosis Stop: 11/21/19 09:13 Last Admin: 10/23/19 15:24 Dose: 0.5 mg Documented by: Sodium Chloride ([place] Nasal) 1 - 2 sprays NA PRN PRN PRN Reason: Nasal Dryness/Congestion Stop: 11/20/19 23:14 Mental Health & Subst Abuse Tx Therapist Name of Therapist: Edu Billings [employer] Continuous Mining Operator Name of Continuous Mining Operator: Not now but Carol Castanon in the past Post Discharge Appointments Primary Care Physician Name Of Family Doctor: [facility]
[2019-10-30] MEDS: NICOTINE POLACRILEX 2 MG GUM MT PRN ×3 (14:41→21:04)
[2019-10-30] MEDS: clonazePAM 0.5 MG TAB PO SCH (22:01)
[2019-10-31] MEDS: PALIPERIDONE 3 MG TABCR PO SCH (08:56)
[2019-10-31] MEDS: LITHIUM CARBONATE 450 MG TABCR PO SCH ×2 (08:56→20:51)
[2019-10-31] MEDS: NICOTINE 14 MG/24 HR PATCH TD SCH (08:57)
[2019-10-31] MEDS: NICOTINE POLACRILEX 2 MG GUM MT PRN ×5 (09:33→20:35)
--- NOTE | 2019-10-31 11:53 | Psychiatric Progress Note ---
Date of Service October 31, 2019 Impression / Recommendations Impression 24-year-old male admitted involuntarily for inpatient psychiatric treatment on 10/21/2019 after presenting to the ED with disorganized thoughts and demonstrating bizarre behaviors. Friend brought patient to the ED and was safety planned home, but returned to the ED within hours. Petitioning statement was completed by friend and patient was brought to the ED on a 302 warrant, indicating he had been noncompliant with medications for the past week, with worsening mental status/mood symptoms, disorganized thinking, confusion, and erratic behavior in the community. He stated he did not know what was real or a dream, and the only way to know would be to kill himself. [place]ora was resumed and titrated, and paliperidone started with a plan to transition to a ALCALA given history of noncompliance, but his insurance is refusing prior authorization. Patient is now attending some groups and has improved to the degree that he is less irritable and slightly more organized, but remains tangential, with loosening of associations, poor mood, and unable to participate in discharge planning due to the severity of his mood and psychotic symptoms. We will engage patient in meetings with [facility] Adv[facility] to discuss academic standing, and have recommended a field nurse case manager. His manic behavior increases his risk of harm to self and others, and inpatient psychiatric treatment is medically necessary at this time. He is on a 303 as of 10/25. (1) Schizoaffective disorder, bipolar type: 10/21 - Diagnosis of bipolar I disorder, most recently prescribed risperidone 1mg BID and lithium 300mg BID. Pt admits to poor compliance with medications, though lithium level in ED was 0.5 which demonstrates some level of medication administration. Will resume these medications initially, recheck lithium level in 5 days. Will have risperidone 0.5mg available q4h prn for psychosis/agitation. - Pt demanding to leave, stating he does not need to be here. He is very disorganized at this time and demonstrating looseness of associations. - Admitted involuntarily for psychiatric treatment - 302 expires on 10/26/2019 at 1933 - Coordinate care with outpatient providers; medications most recently prescribed at [facility] by Tari Brasher PA-C - Coordinate with the University and patient's friend to gather collateral information - Will encourage attendance of group programming once patient is able to demonstrate appropriateness 10/22 - continue risperdal and lithium as above with prn haldol as above, [place]ora level ordered for 10/27/19. Agree with Consideration with ALCALA but patient is not able to tolerate that discussion at this time. - pt is on 302 comittment, treatment team and by evaluation LOS estimated to be 7-9days, 302 expires 10/26/19 at 1933, will file for 303 hearing form AM of 10/26/19 as he remains illogical, agitated and unable to function in the community, unable to address safety risks that lead to hospitalization leaving inpatient care as the least restrictive and most appropriate level of care at this time, continue MNPR due to level of agitation and intrusiveness requiring consistent redirection of interpersonal space boundaries - coordinated care with outpt providers, and [place], - waiting records from [place] to see if Fasting metabolic labs more recent than 08/2017 are available, if not FBS and FLipids will need ordered prior to discharge, ideally could be added to 10/27/19 labs if not before 10/23 - Pt continues to be tangential, hyperverbal, irritable, and demonstrate poor boundaries and intrusive behavior - Fortunately, he was agreeable with pursing an ALCALA and paliperidone was discussed given likelihood of tolerability and q4 week injection schedule being most ideal with regard to patient's history of noncompliance with medications/appointments - Will hold risperidone and initiate paliperidone 3mg dose today, titrating to 6mg qAM starting tomorrow morning. Can continue prn risperidone for the time being - Pt has verbalized willingness for communication with [facility]'s Student Care and Advocacy office - He is unwilling to consider case management referral at this time - Awaiting records from the [facility] regarding more recent fasting labs - 303 hearing scheduled for 10/26/2019 - Continue MNPR 10/24 - continue treatment plan -ordered fasting labs since not clear when last fasting labs obtained -303 hearing scheduled for 10/26/2019 and review this with pt and reviewed rationale for admission and ongoing treatment at hospital level of care being perused 10/25 continue treatment plan continue trying to obtain ALCALA Sustenna form of Invega addressing prior Auth process of his insurance reality testing and psychoeducation of pt's dx and current symptoms consider further titration of Invega oral dose 10/26 -No progress today in terms of obtaining prior authorization for Invega Sustenna -The patient's lithium level this morning was 0.6. He continues to exhibit pressured speech and flight of ideas. Today, we offered him an extra dose 300 mg of lithium carbonate immediate release, and then increased his dose of lithium carbonate to 450 mg twice a day (extended release). -The patient admits that he has a history of opening capsules" snorting" through nasal insufflation the contents, including lithium capsules. For that reason, we are preferring to give him tablets. -The plan is to continue oral Invega 6 mg a day and to convert to the long- acting intramuscular form once it is authorized. 10/27 -Trial clonazepam 0.5 mg p.o. nightly for antimanic effect and sleep augmentation 10/28 -Tolerating clonazepam with perhaps some improvement in sleep. We will continue treatment plan unchanged as above. -Reschedule next lithium trough for Wednesday, October 31 which will be 5 days following last dose escalation 10/29 -Encourage patient to participate fully in treatment and to identify ways to achieve stability. Encourage patient to work on a more detailed/solid discharge plan, as he changes his mind frequently about his plans when he leaves the hospital. -Patient continues to refuse recommendations for a BCM and for a family meeting. -Coordinate with his insurance to determine which ALCALA's are on formulary, as he has a history of repeated hospitalizations and noncompliance with treatment. 10/30 - Diagnosis adjusted, as patient continues to demonstrate behavior and verbalize history that seems to be more consistent with a primary thought disorder. Working diagnosis at this time of schizoaffective disorder, bipolar type. - Attempting to coordinate approval of Invega Vivianaenna with insurance. Appreciate assistance [facility] in this endeavor. It remains the recommendation that ALCALA be initiated as patient has had numerous psychiatrist hospitalizations related to noncompliance with medications. Sustenna is specifically being considered given opportunity for q4week dosing and that he is tolerating the medication thus far. - [place]ora level to be repeated tomorrow morning (2) Nicotine dependence: 10/22 - continue to offer NRT in form of patch and gum. Patient is pre- contemplational and declines smoking cessation resources at this time. for note he has h/o MJ abuse but UDS negative in ED and he states he has not smoked in 2-3 months, carried forward in this note for future provider knowledge. No action needed at this time. 10/23 - Continues to demand transfer to the [facility] where he would be permitted to smoke - Opportunity for lateral transfer was explored and facility declined patient - He makes it very clear he has not intention to quit smoking at this time' 10/24 using nicotine gum for cravings, not open to smoking cessation education and too manic to handle this conversation at this time 10/26 -The patient tells us that he would like to stop smoking, but adds "probably not right now." He has been asking for his Nicorette gum on a regular basis, and does not respond to suggestions that he extend the duration between uses. Risk Factors Assessment Male: Yes Mental Health Diagnoses: Yes Substance Use Disorders: Yes Previous Psychiatric Hospitalization: Yes Smoker: Yes Protective Factors Assessment : No Responsible for Young Children: No Employed: No Supportive Family: No (living in [facility]) Interval History Identifying Information ZAY MOMIN is a 24-year-old M who currently lives in [place] in close proximity to a friend. Pt was brought to the ED earlier in the day 10/21/19, and was safety planned home with a friend. Pt has a history of bipolar disorder with history of poor medication compliance, and returned to the ED and admitted on 10/21/19 23:15 on a 302 involuntary commitment for disorganized thoughts and mitra, having reportedly verbalizing to his friend that he was considering whether or not to jump from a window. 303 granted 10/26/2019. Chief Complaint "I'm feeling better. I think the Klonopin is helping." Review of Systems Notes Constitutional: denied Cardiovascular: denied Respiratory: denied Gastrointestinal: denied Neurological: denied Psychiatric: denies symptoms other than stated above Total of at least 10 systems reviewed, pertinent positives as above and in HPI. Sleep Information Total Hours of Sleep: 6.5 Sleep Comments: pt on q-15 minute checks Meal Information Percent Meal Consumed - Breakfast: 100 Percent Meal Consumed - Lunch: 80 Percent Meal Consumed - Dinner: 100 Subjective Subjective Patient was seen & assessed and interval progress reviewed with nursing and social work. Staff report the patient was more withdrawn yesterday during the morning/afternoon, but in the evening was reportedly more animated and energetic. He attended community meeting last evening and rated his mood a 9/10 and used the word "disciple" as his feeling word. There have been ongoing discussions with his insurance regarding medical necessity of an ALCALA to ensure long-term stability, though the medication still has not been approved. Pt was seen today to assess progress since admission. Pt reports he is feeling "better" today, admitting to improved sleep since the addition of clonazepam. Pt does feel as though his thoughts are slowed down, but states "even when my thoughts are normal speed, my thinking is very fast." Pt shares with this provider that he was previously told his mind is like a 'Tae' and others' m inds are like 'Volkswagens', "my mind is very fast, and if I don't learn how to drive properly I will crash." When asked how patient interprets this statement, he reports "that I need to work to slow down my speech for others so that they will understand and I can communicate effectively. Pt also comments on the benefit he feels he obtained after receiving ECT treatments in 2019. He does admit to feeling more "calm, cool, and composed" today. Pt continues to verbalize frustration with his length of stay and request for discharge. Although patient was unproductively preoccupied with this during several conversations this morning with other staff, he was able to tolerate a more rational conversation this afternoon. He verbalizes understanding of need to ensure mental health stability prior to recommending discharge, but reports "I'm concerned because the more comfortable I am here, the more uncomfortable I will be out there. Here, meals are provided 3 times a day, people clean for me, there are machines for laundry - when I leave, I will have to do all that myself, and that will be hard to remember." Pt states that one of his biggest stressors since moving to this country has been caring for himself in these ways, stating "we had a maid growing up, I had to learn to do these things for myself." When discussing recommendations for ALCALA and continued hospitalization, patient does become somewhat irritable. He states "when I was in [place], they only kept me for 4 days and I was psychotic as hell. I want to know what is wrong with mental health in [place] and what is right with mental health in [place]." This provider attempted to discuss that there are numerous variables that are considered with regard to discharge planning, and that our goal is to set him up for long-term stability. Pt denied needs at this time and continues to verbalize willingness for an ALCALA when approved. He denies physicals concerns, SI/HI, and A/V hallucinations. Physical Exam Psychiatric Orientation: alert, oriented x 3 and cooperative (superficially ) Apperance: appropriately dressed (casually, in scrub pants and t-shirts), + disheveled (long hair appearing unkempt) and appeared stated age Eye Contact: good eye contact Motor Behavior: steady gait and station and no abnormal motor movements Speech: normal rate/rhythm/volume of speech Affect: + anxious affect (somewhat irritable affect, though does appear more calm overall today ) Mood: + irritable mood ("I'm a frustrated, I want to go home"); no depressed mood Thought Process: goal directed thought process (at least during this encounter, thought process is not always consistent) Thought Content: + cognitive distortions (regarding the severity of his mental health/need for stability before d/c) and reality based without delusions; no hopelessness and no worthlessness Suicidal Thoughts: denies suicidal thoughts and denies suicidal intent Homicidal Thoughts: denies homicidal thoughts Hallucinations: no auditory hallucinations and no visual hallucinations Cognition: recent memory grossly intact, attention grossly intact and language grossly intact Estimated Intelligence: consistent with education level Insight: + poor insight Judgement: + poor judgement Vital Signs (Past 24 Hours) Last Vital Signs Temp 36.6 C 10/31/19 06:40 Pulse 79 10/31/19 06:40 Resp 18 10/31/19 06:40 BP 95/59 L 10/31/19 06:40 Pulse Ox 99 10/21/19 23:37 Results & Data ([facility]) Current Inpatient Medications Current Inpatient Medications: Current Inpatient Medications Acetaminophen (Tylenol) 650 mg PO Q4H PRN PRN Reason: Headache or Minor Fever Stop: 11/20/19 23:14 Al Hydrox/Mg Hydrox/Simethicone (Maalox) 30 ml PO Q4H PRN PRN Reason: GI Upset Stop: 11/20/19 23:14 Benztropine Mesylate (Cogentin) 1 mg PO Q6H PRN PRN Reason: dystonia Stop: 11/20/19 23:20 Bismuth Subsalicylate (Kaopectate) 15 ml PO PRN PRN PRN Reason: Loose Stool Stop: 11/20/19 23:14 Clonazepam (Klonopin) 0.5 mg PO HS JANET Stop: 11/27/19 21:59 Last Admin: 10/30/19 22:01 Dose: 0.5 mg Documented by: Haloperidol (Haldol) 5 mg PO Q4H PRN PRN Reason: agitation r/t psychosis Stop: 11/20/19 23:16 Last Admin: 10/22/19 08:03 Dose: 5 mg Documented by: Haloperidol Lactate (Haldol) 5 mg IM Q4H PRN PRN Reason: Agitation Stop: 11/20/19 23:16 Hydroxyzine HCl (Vistaril) 50 mg PO HSZ PRN PRN Reason: Insomnia Stop: 11/20/19 23:14 Last Admin: 10/27/19 02:53 Dose: 50 mg Documented by: Hydroxyzine HCl (Vistaril) 25 mg PO Q4H PRN PRN Reason: Anxiety Stop: 11/20/19 23:14 Tus[place]ora Carbonate (Eskalith) 450 mg PO BID [facility] Stop: 11/26/19 20:59 Last Admin: 10/31/19 08:56 Dose: 450 mg Documented by: Lorazepam (Ativan) 2 mg IM Q4H PRN PRN Reason: Agitation Stop: 11/20/19 23:17 Lorazepam (Ativan) 1 mg PO Q4H PRN PRN Reason: Anxiety/Agitation Stop: 11/20/19 23:19 Last Admin: 10/26/19 22:15 Dose: 1 mg Documented by: Magnesium Hydroxide (Milk Of Magnesia) 30 ml PO DAILY PRN PRN Reason: Constipation Stop: 11/20/19 23:14 Miscellaneous (Remove Nicoderm Patch) 1 ea N/A DAILY@[id number] [facility] Stop: 11/22/19 08:58 Last Admin: 10/31/19 08:56 Dose: Not Given Documented by: Nicotine (Nicoderm Cq) 14 mg TD QAM [facility] Stop: 11/22/19 08:59 Last Admin: 10/31/19 08:57 Dose: Not Given Documented by: Nicotine Polacrilex (Nicorette 2mg) 1 piece MT Q1H PRN PRN Reason: Nicotine Withdrawal Stop: 11/21/19 08:40 Last Admin: 10/31/19 09:33 Dose: 1 piece Documented by: Paliperidone (Invega) 6 mg PO QAM JANET Stop: 11/24/19 08:59 Last Admin: 10/31/19 08:56 Dose: 6 mg Documented by: Risperidone (Risperdal) 0.5 mg PO Q4H PRN PRN Reason: psychosis Stop: 11/21/19 09:13 Last Admin: 10/23/19 15:24 Dose: 0.5 mg Documented by: Sodium Chloride ([place] Nasal) 1 - 2 sprays NA PRN PRN PRN Reason: Nasal Dryness/Congestion Stop: 11/20/19 23:14 Mental Health & Subst Abuse Tx Therapist Name of Therapist: Edu Billings [employer] Dairy Husbandman Name of Dairy Husbandman: Not now but Carol Castanon in the past Post Discharge Appointments Primary Care Physician Name Of Family Doctor: [facility]
[2019-10-31] MEDS: clonazePAM 0.5 MG TAB PO SCH (20:52)
[2019-11-01] MEDS: PALIPERIDONE 3 MG TABCR PO SCH (07:58)
[2019-11-01] MEDS: LITHIUM CARBONATE 450 MG TABCR PO SCH ×2 (07:58→20:38)
[2019-11-01] MEDS: NICOTINE 14 MG/24 HR PATCH TD SCH (08:01)
[2019-11-01] MEDS: NICOTINE POLACRILEX 2 MG GUM MT PRN ×6 (08:05→19:16)
--- NOTE | 2019-11-01 08:26 | Psychiatric Progress Note ---
Date of Service November 01, 2019 Impression / Recommendations Impression 24-year-old male admitted involuntarily for inpatient psychiatric treatment on 10/21/2019 after presenting to the ED with disorganized thoughts and bizarre behavior. Friend brought patient to the ED and was safety planned home, but returned to the ED within hours on a 302 warrant. Petitioning statement was completed by his friend and indicated he had been noncompliant with medications for the past week, with worsening mental status/mood symptoms, disorganized thinking, confusion, and erratic behavior in the community. He stated he did not know what was real or a dream, and the only way to know would be to kill himself. Irena was resumed and titrated, and paliperidone started with a plan to transition to a ALCALA given history of noncompliance. Patient is now attending some groups and has improved to the degree that he is less irritable and slightly more organized, but remains tangential, with loosening of associations, poor mood, and unable to participate in discharge planning due to the severity of his mood and psychotic symptoms. We will engage patient in meetings with [facility] to discuss academic standing, with his supports including his mother and friend ERIKA, and have recommended a case hardener. His manic behavior increases his risk of harm to self and others, and inpatient psychiatric treatment is medically necessary at this time. He is on a 303 as of 10/25. (1) Schizoaffective disorder, bipolar type: 10/21 - Diagnosis of bipolar I disorder, most recently prescribed risperidone 1mg BID and lithium 300mg BID. Pt admits to poor compliance with medications, though lithium level in ED was 0.5 which demonstrates some level of medication administration. Will resume these medications initially, recheck lithium level in 5 days. Will have risperidone 0.5mg available q4h prn for psychosis/agitation. - Pt demanding to leave, stating he does not need to be here. He is very disorganized at this time and demonstrating looseness of associations. - Admitted involuntarily for psychiatric treatment - 302 expires on 10/26/2019 at 1933 - Coordinate care with outpatient providers; medications most recently prescribed at [place] by Tari Brasher PA-C - Coordinate with the University and patient's friend to gather collateral information - Will encourage attendance of group programming once patient is able to demonstrate appropriateness 10/22 - continue risperdal and lithium as above with prn haldol as above, Irena level ordered for 10/27/19. Agree with Consideration with ALCALA but patient is not able to tolerate that discussion at this time. - pt is on 302 comittment, treatment team and by evaluation LOS estimated to be 7-9days, 302 expires 10/26/19 at 1933, will file for 303 hearing form AM of 10/26/19 as he remains illogical, agitated and unable to function in the community, unable to address safety risks that lead to hospitalization leaving inpatient care as the least restrictive and most appropriate level of care at this time, continue MNPR due to level of agitation and intrusiveness requiring consistent redirection of interpersonal space boundaries - coordinated care with outpt providers, and university, - waiting records from [facility] to see if Fasting metabolic labs more recent than 08/2017 are available, if not FBS and FLipids will need ordered prior to discharge, ideally could be added to 10/27/19 labs if not before 10/23 - Pt continues to be tangential, hyperverbal, irritable, and demonstrate poor boundaries and intrusive behavior - Fortunately, he was agreeable with pursing an ALCALA and paliperidone was discussed given likelihood of tolerability and q4 week injection schedule being most ideal with regard to patient's history of noncompliance with medications/appointments - Will hold risperidone and initiate paliperidone 3mg dose today, titrating to 6mg qAM starting tomorrow morning. Can continue prn risperidone for the time being - Pt has verbalized willingness for communication with [facility]'s [facility] Care and Advocacy office - He is unwilling to consider case management referral at this time - Awaiting records from the [facility] regarding more recent fasting labs - 303 hearing scheduled for 10/26/2019 - Continue MNPR 10/24 - continue treatment plan -ordered fasting labs since not clear when last fasting labs obtained -303 hearing scheduled for 10/26/2019 and review this with pt and reviewed rationale for admission and ongoing treatment at hospital level of care being perused 10/25 continue treatment plan continue trying to obtain ALCALA Sustenna form of Invega addressing prior Auth process of his insurance reality testing and psychoeducation of pt's dx and current symptoms consider further titration of Invega oral dose 10/26 -No progress today in terms of obtaining prior authorization for Invega Sustenna -The patient's lithium level this morning was 0.6. He continues to exhibit pressured speech and flight of ideas. Today, we offered him an extra dose 300 mg of lithium carbonate immediate release, and then increased his dose of lithium carbonate to 450 mg twice a day (extended release). -The patient admits that he has a history of opening capsules" snorting" through nasal insufflation the contents, including lithium capsules. For that reason, we are preferring to give him tablets. -The plan is to continue oral Invega 6 mg a day and to convert to the long- acting intramuscular form once it is authorized. 10/27 -Trial clonazepam 0.5 mg p.o. nightly for antimanic effect and sleep augmentation 10/28 -Tolerating clonazepam with perhaps some improvement in sleep. We will continue treatment plan unchanged as above. -Reschedule next lithium trough for Wednesday, October 31 which will be 5 days following last dose escalation 10/29 -Encourage patient to participate fully in treatment and to identify ways to achieve stability. Encourage patient to work on a more detailed/solid discharge plan, as he changes his mind frequently about his plans when he leaves the hospital. -Patient continues to refuse recommendations for a BCM and for a family meeting. -Coordinate with his insurance to determine which ALCALA's are on formulary, as he has a history of repeated hospitalizations and noncompliance with treatment. 10/30 - Diagnosis adjusted, as patient continues to demonstrate behavior and verbalize history that seems to be more consistent with a primary thought disorder. Working diagnosis at this time of schizoaffective disorder, bipolar type. - Attempting to coordinate approval of Invega Sustenna with insurance. Appreciate assistance [facility] in this endeavor. It remains the recommendation that ALCALA be initiated as patient has had numerous psychiatrist hospitalizations related to noncompliance with medications. Sustenna is specifically being considered given opportunity for q4week dosing and that he is tolerating the medication thus far. - Irena level to be repeated tomorrow morning 10/31 -Awaiting response from patient's insurance to approve use of Invega Sustenna before starting the ALCALA. We are also exploring getting this through a specialty pharmacy using the insurance co-pay card, as the patient's insurance has not been responsive and has refused to provide his formulary. Continue oral paliperidone until we can ensure he will be able to get Sustenna as an outpatient. -Continue lithium, trough level today 0.9. -Recommend meeting with the University, contact with his friend Ronald and repeat family meeting with his mother to work on a good discharge plan. -Encourage patient to work on his discharge plan independently, including making phone calls to determine where he will be living, determining if he can remain a student, addressing his upcoming court date/criminal charges, and clarifying his financial situation and how he will pay his bills. (2) Nicotine dependence: 10/22 - continue to offer NRT in form of patch and gum. Patient is pre- contemplational and declines smoking cessation resources at this time. for note he has h/o MJ abuse but UDS negative in ED and he states he has not smoked in 2-3 months, carried forward in this note for future provider knowledge. No action needed at this time. 10/23 - Continues to demand transfer to the [facility] where he would be permitted to smoke - Opportunity for lateral transfer was explored and facility declined patient - He makes it very clear he has not intention to quit smoking at this time' 10/24 -using nicotine gum for cravings, not open to smoking cessation education and too manic to handle this conversation at this time 10/26 -The patient tells us that he would like to stop smoking, but adds "probably not right now." He has been asking for his Nicorette gum on a regular basis, and does not respond to suggestions that he extend the duration between uses. Risk Factors Assessment Male: Yes Mental Health Diagnoses: Yes Substance Use Disorders: Yes Previous Psychiatric Hospitalization: Yes Smoker: Yes Protective Factors Assessment : No Responsible for Young Children: No Employed: No Supportive Family: No (living in [facility]) Interval History Identifying Information ZAY MOMIN is a 24-year-old M who currently lives [place], has a history of bipolar disorder and treatment noncompliance, and was brought to the ED 10/21/19 for a mental health evaluation and was safety planned home with a friend. He returned to the ED later that day on a 302 involuntary commitment for disorganized thoughts and mitra, after telling his friend he was going to jump from a window. 303 granted on 10/26/2019. Chief Complaint " Not just my phone is lost, also my shorts, I woke up and didn't know what happened". Review of Systems Notes 10 systems reviewed; negative except as stated above. Sleep Information Total Hours of Sleep: 8.25 Sleep Comments: pt on q-15 minute checks Meal Information Percent Meal Consumed - Breakfast: 100 Percent Meal Consumed - Lunch: 100 Percent Meal Consumed - Dinner: 100 Subjective Subjective Patient was seen & assessed and interval progress reviewed with treatment team. Staff report he has been attending groups, and is often intrusive and demanding with staff. He has been less hyperverbal, and is eating well and taking medications as prescribed. He has limited hygiene and grooming. On my assessment, he was seen with the secondary social studies teacher and nurse. We reviewed his treatment plan in detail, and he frequently interrupted to argue each listed problem/recommendation. He says that he does not know what happened prior to admission as he "just woke up without my shorts, phone, wallet, with scrapes on my knees, did not know what happened." He states that he cannot make any progress on his discharge plan until he leaves the hospital, stating he cannot make phone calls that he needs to from the unit. After some discussion, stated he knows he can make the phone calls, but just does not want to "and I do not know why." He claims he has a new apartment and that half of his belongings are already there, and that he needs to contact his tax lawyer, immigration office, and the University in order to work out his various legal problems, financial and academic issues. This was challenged as staff have received contradictory information, which the patient continues to dispute, stating he thinks everything will work out and that he will just talk to the DA and get his charges dropped. He further thinks that he will be able to pay all of his various bills and tuition, although he does not have any money, as he spent thousands of dollars gambling. Staff gently challenged him on his assertion that he is going to return to school, stating that the University reports that he has not made any progress toward his degree in 3 years, and that given his ongoing mental health issues, the school may not be realistic. He was unable to engage in this discussion and responded with denial. He continues to list all of the things that he needs to work on, stating he cannot do any of them here. He was encouraged to start making discharge plans, and reviewed recommendations including an ALCALA, family meetings with his mother and friend, coordination with the University, and a solid discharge plan including where he will be living. He said he does not have enough motivation to do the things he needs to do, and was able to say that he knows he needs to be healthy in order to meet his goals. He then quickly returned to rationalizing why he does not need to be here, stating we should talk to doctors he saw in the past while briefly hospitalized at outside facilities, because they knew that he was fine and "could make my own decisions." He stated that he left some of his belongings in [place] because he got so angry, and that "when I get angry, my reactions can be very bad." Physical Exam Psychiatric Orientation: alert and cooperative (Partially, but often interrupts, argumentative) Unkempt, wearing the same clothes for 3 days (scrub pants and an oversized T- shirt) Eye Contact: + fair eye contact Motor Behavior: steady gait and station and no abnormal motor movements Slightly loud and irritated tone at times Affect: + irritable affect and + constricted affect; + mood not congruent with affect "I am fine." Thought Process: + tangential thought process, + looseness of associations and + perseveration Thought Content: + persecution Suicidal Thoughts: denies suicidal thoughts Homicidal Thoughts: denies homicidal thoughts Hallucinations: no auditory hallucinations Cognition: attention grossly intact and language grossly intact; + recent memory not intact (States he does not recall events prior to admission) Insight: + impaired insight Judgement: + impaired judgement Vital Signs (Past 24 Hours) Last Vital Signs Temp 36.5 C 11/01/19 06:26 Pulse 85 11/01/19 06:26 Resp 18 11/01/19 06:26 BP 90/58 L 11/01/19 06:26 Pulse Ox 99 10/21/19 23:37 Results & Data ([facility]) Laboratory Results Laboratory Results - last 24 hr 11/01/19 06:13 Irena 0.9 Current Inpatient Medications Current Inpatient Medications: Current Inpatient Medications Acetaminophen (Tylenol) 650 mg PO Q4H PRN PRN Reason: Headache or Minor Fever Stop: 11/20/19 23:14 Al Hydrox/Mg Hydrox/Simethicone (Maalox) 30 ml PO Q4H PRN PRN Reason: GI Upset Stop: 11/20/19 23:14 Benztropine Mesylate (Cogentin) 1 mg PO Q6H PRN PRN Reason: dystonia Stop: 11/20/19 23:20 Bismuth Subsalicylate (Kaopectate) 15 ml PO PRN PRN PRN Reason: Loose Stool Stop: 11/20/19 23:14 Clonazepam (Klonopin) 0.5 mg PO HS JANET Stop: 11/27/19 21:59 Last Admin: 10/31/19 20:52 Dose: 0.5 mg Documented by: Haloperidol (Haldol) 5 mg PO Q4H PRN PRN Reason: agitation r/t psychosis Stop: 11/20/19 23:16 Last Admin: 10/22/19 08:03 Dose: 5 mg Documented by: Haloperidol Lactate (Haldol) 5 mg IM Q4H PRN PRN Reason: Agitation Stop: 11/20/19 23:16 Hydroxyzine HCl (Vistaril) 50 mg PO HSZ PRN PRN Reason: Insomnia Stop: 11/20/19 23:14 Last Admin: 10/27/19 02:53 Dose: 50 mg Documented by: Hydroxyzine HCl (Vistaril) 25 mg PO Q4H PRN PRN Reason: Anxiety Stop: 11/20/19 23:14 Irena Carbonate (Eskalith) 450 mg PO BID [facility] Stop: 11/26/19 20:59 Last Admin: 11/01/19 07:58 Dose: 450 mg Documented by: Lorazepam (Ativan) 2 mg IM Q4H PRN PRN Reason: Agitation Stop: 11/20/19 23:17 Lorazepam (Ativan) 1 mg PO Q4H PRN PRN Reason: Anxiety/Agitation Stop: 11/20/19 23:19 Last Admin: 10/26/19 22:15 Dose: 1 mg Documented by: Magnesium Hydroxide (Milk Of Magnesia) 30 ml PO DAILY PRN PRN Reason: Constipation Stop: 11/20/19 23:14 Miscellaneous (Remove Nicoderm Patch) 1 ea N/A DAILY@[id number] [facility] Stop: 11/22/19 08:58 Last Admin: 11/01/19 08:01 Dose: Not Given Documented by: Nicotine (Nicoderm Cq) 14 mg TD QAM [facility] Stop: 11/22/19 08:59 Last Admin: 11/01/19 08:01 Dose: Not Given Documented by: Nicotine Polacrilex (Nicorette 2mg) 1 piece MT Q1H PRN PRN Reason: Nicotine Withdrawal Stop: 11/21/19 08:40 Last Admin: 11/01/19 08:05 Dose: 1 piece Documented by: Paliperidone (Invega) 6 mg PO QAM JANET Stop: 11/24/19 08:59 Last Admin: 11/01/19 07:58 Dose: 6 mg Documented by: Risperidone (Risperdal) 0.5 mg PO Q4H PRN PRN Reason: psychosis Stop: 11/21/19 09:13 Last Admin: 10/23/19 15:24 Dose: 0.5 mg Documented by: Sodium Chloride (Hungry Horse Nasal) 1 - 2 sprays NA PRN PRN PRN Reason: Nasal Dryness/Congestion Stop: 11/20/19 23:14 Mental Health & Subst Abuse Tx Therapist Name of Therapist: Edu Billings [employer] Mining Consultant Name of Mining Consultant: Not now but Carol Castanon in the past Post Discharge Appointments Primary Care Physician Name Of Family Doctor: Ruchi
[2019-11-01] MEDS ORDERED: PALIPERIDONE PALMITATE 234 MG/1.5 ML SYR IM ONE (14:00)
[2019-11-01] MEDS: clonazePAM 0.5 MG TAB PO SCH (20:38)
[2019-11-02] MEDS: PALIPERIDONE 3 MG TABCR PO SCH (07:34)
[2019-11-02] MEDS: LITHIUM CARBONATE 450 MG TABCR PO SCH ×2 (07:34→21:57)
[2019-11-02] MEDS: NICOTINE 14 MG/24 HR PATCH TD SCH (07:36)
--- NOTE | 2019-11-02 11:10 | Psychiatric Progress Note ---
Date of Service November 02, 2019 Impression / Recommendations Impression 24-year-old male admitted involuntarily for inpatient psychiatric treatment on 10/21/2019 after presenting to the ED with disorganized thoughts and bizarre behavior. Friend brought patient to the ED and was safety planned home, but returned to the ED within hours on a 302 warrant. Petitioning statement was completed by his friend and indicated he had been noncompliant with medications for the past week, with worsening mental status/mood symptoms, disorganized thinking, confusion, and erratic behavior in the community. He stated he did not know what was real or a dream, and the only way to know would be to kill himself. [place] was resumed and titrated, and paliperidone started with a plan to transition to a ALCALA given history of noncompliance. Patient is now attending some groups and has improved to the degree that he is less irritable and slightly more organized, but remains tangential, with loosening of associations, poor mood, and unable to participate in discharge planning due to the severity of his mood and psychotic symptoms. We will engage patient in meetings with [employer] to discuss academic standing, with his supports including his mother and friend Ronald, and have recommended a case making machine operator. Pt was initiated on Invega Sustenna on 11/01/2019 - next injection scheduled for 11/05/2019. Copay reported to be $0 and coordinated with [facility]. His manic behavior increases his risk of harm to self and others, and inpatient psychiatric treatment is medically necessary at this time. He is on a 303 as of 10/25. (1) Schizoaffective disorder, bipolar type: 10/21 - Diagnosis of bipolar I disorder, most recently prescribed risperidone 1mg BID and lithium 300mg BID. Pt admits to poor compliance with medications, though lithium level in ED was 0.5 which demonstrates some level of medication administration. Will resume these medications initially, recheck lithium level in 5 days. Will have risperidone 0.5mg available q4h prn for psychosis/agitation. - Pt demanding to leave, stating he does not need to be here. He is very disorganized at this time and demonstrating looseness of associations. - Admitted involuntarily for psychiatric treatment - 302 expires on 10/26/2019 at 1933 - Coordinate care with outpatient providers; medications most recently prescribed at [facility] by Tari Brasher PA-C - Coordinate with the University and patient's friend to gather collateral information - Will encourage attendance of group programming once patient is able to demonstrate appropriateness 10/22 - continue risperdal and lithium as above with prn haldol as above, [place] level ordered for 10/27/19. Agree with Consideration with ALCALA but patient is not able to tolerate that discussion at this time. - pt is on 302 comittment, treatment team and by evaluation LOS estimated to be 7-9days, 302 expires 10/26/19 at 1933, will file for 303 hearing form AM of 10/26/19 as he remains illogical, agitated and unable to function in the community, unable to address safety risks that lead to hospitalization leaving inpatient care as the least restrictive and most appropriate level of care at this time, continue MNPR due to level of agitation and intrusiveness requiring consistent redirection of interpersonal space boundaries - coordinated care with outpt providers, and university, - waiting records from [facility] to see if Fasting metabolic labs more recent than 08/2017 are available, if not FBS and FLipids will need ordered prior to discharge, ideally could be added to 10/27/19 labs if not before 10/23 - Pt continues to be tangential, hyperverbal, irritable, and demonstrate poor boundaries and intrusive behavior - Fortunately, he was agreeable with pursing an ALCALA and paliperidone was discussed given likelihood of tolerability and q4 week injection schedule being most ideal with regard to patient's history of noncompliance with medications/appointments - Will hold risperidone and initiate paliperidone 3mg dose today, titrating to 6mg qAM starting tomorrow morning. Can continue prn risperidone for the time being - Pt has verbalized willingness for communication with [employer]'s [facility] office - He is unwilling to consider case management referral at this time - Awaiting records from the [facility] regarding more recent fasting labs - 303 hearing scheduled for 10/26/2019 - Continue MNPR 10/24 - continue treatment plan -ordered fasting labs since not clear when last fasting labs obtained -303 hearing scheduled for 10/26/2019 and review this with pt and reviewed rationale for admission and ongoing treatment at hospital level of care being perused 10/25 continue treatment plan continue trying to obtain ALCALA Sustenna form of Invega addressing prior Auth process of his insurance reality testing and psychoeducation of pt's dx and current symptoms consider further titration of Invega oral dose 10/26 -No progress today in terms of obtaining prior authorization for Invega Sustenna -The patient's lithium level this morning was 0.6. He continues to exhibit pressured speech and flight of ideas. Today, we offered him an extra dose 300 mg of lithium carbonate immediate release, and then increased his dose of lithium carbonate to 450 mg twice a day (extended release). -The patient admits that he has a history of opening capsules" snorting" through nasal insufflation the contents, including lithium capsules. For that reason, we are preferring to give him tablets. -The plan is to continue oral Invega 6 mg a day and to convert to the long- acting intramuscular form once it is authorized. 10/27 -Trial clonazepam 0.5 mg p.o. nightly for antimanic effect and sleep augmentation 10/28 -Tolerating clonazepam with perhaps some improvement in sleep. We will continue treatment plan unchanged as above. -Reschedule next lithium trough for October 31 which will be 5 days following last dose escalation 10/29 -Encourage patient to participate fully in treatment and to identify ways to achieve stability. Encourage patient to work on a more detailed/solid discharge plan, as he changes his mind frequently about his plans when he leaves the hospital. -Patient continues to refuse recommendations for a BCM and for a family meeting. -Coordinate with his insurance to determine which ALCALA's are on formulary, as he has a history of repeated hospitalizations and noncompliance with treatment. 10/30 - Diagnosis adjusted, as patient continues to demonstrate behavior and verbalize history that seems to be more consistent with a primary thought disorder. Working diagnosis at this time of schizoaffective disorder, bipolar type. - Attempting to coordinate approval of Invega Sustenna with insurance. Appr eciate assistance [facility] in this endeavor. It remains the recommendation that ALCALA be initiated as patient has had numerous psychiatrist hospitalizations related to noncompliance with medications. Sustenna is specifically being considered given opportunity for q4week dosing and that he is tolerating the medication thus far. - [place] level to be repeated tomorrow morning 10/31 -Awaiting response from patient's insurance to approve use of Invega Sustenna before starting the ALCALA. We are also exploring getting this through a specialty pharmacy using the insurance co-pay card, as the patient's insurance has not been responsive and has refused to provide his formulary. Continue oral paliperidone until we can ensure he will be able to get Sustenna as an outpatient. -Continue lithium, trough level today 0.9. -Recommend meeting with the University, contact with his friend Ronald and repeat family meeting with his mother to work on a good discharge plan. -Encourage patient to work on his discharge plan independently, including making phone calls to determine where he will be living, determining if he can remain a student, addressing his upcoming court date/criminal charges, and clarifying his financial situation and how he will pay his bills. 11/01 - Informed Invega Sustenna has been approved for $0 copay - pt given initial 234mg IM injection yesterday afternoon, next injection of 156mg IM ordered for 11/04. - Continue lithium - Pt scheduled for family meeting with mother this morning, and representatives from [employer] ([employer] [facility], Web Machine Tender from patient's program, etc) this afternoon - Encouraged patient to focus on next concrete steps of his discharge plan - he has asked a friend for assistance with finding a room. More information on ability to return to school is likely to be discussed this afternoon. (2) Nicotine dependence: 10/22 - continue to offer NRT in form of patch and gum. Patient is pre- contemplational and declines smoking cessation resources at this time. for note he has h/o MJ abuse but UDS negative in ED and he states he has not smoked in 2-3 months, carried forward in this note for future provider knowledge. No action needed at this time. 10/23 - Continues to demand transfer to the [facility] where he would be permitted to smoke - Opportunity for lateral transfer was explored and facility declined patient - He makes it very clear he has not intention to quit smoking at this time' 10/24 -using nicotine gum for cravings, not open to smoking cessation education and too manic to handle this conversation at this time 10/26 -The patient tells us that he would like to stop smoking, but adds "probably not right now." He has been asking for his Nicorette gum on a regular basis, and does not respond to suggestions that he extend the duration between uses. Risk Factors Assessment Male: Yes Mental Health Diagnoses: Yes Substance Use Disorders: Yes Previous Psychiatric Hospitalization: Yes Smoker: Yes Protective Factors Assessment : No Responsible for Young Children: No Employed: No Supportive Family: No (living in [facility]) Interval History Identifying Information ZAY MOMIN is a 24-year-old M who currently lives in [place], has a history of bipolar disorder and treatment noncompliance, and was brought to the ED 10/21/19 for a mental health evaluation and was safety planned home with a friend. He returned to the ED later that day on a 302 involuntary commitment for disorganized thoughts and mitra, after telling his friend he was going to jump from a window. 303 granted on 10/26/2019. Chief Complaint "I'm ok." Review of Systems Notes Constitutional: denied Cardiovascular: denied Respiratory: denied Gastrointestinal: denied Neurological: denied Psychiatric: denies symptoms other than stated above Total of at least 10 systems reviewed, pertinent positives as above and in HPI. Sleep Information Total Hours of Sleep: 6.5 Sleep Comments: pt on q-15 minute checks Meal Information Percent Meal Consumed - Breakfast: 100 Percent Meal Consumed - Lunch: 100 Percent Meal Consumed - Dinner: 100 Subjective Subjective Patient was seen & assessed and interval progress reviewed with nursing and soci al work. Staff report the patient continues to be less intrusive and in better behavioral control, but is unable to present a reasonable plan for discharge. He simultaneously states he has numerous tasks he needs to complete (secure housing, financial questions/concerns, and contact public health technologist about legal charges), but also refuses to work on any of these tasks during his hospitalization. Pt is scheduled for two meetings today - the first, with his mother to repeat family meeting now that patient is somewhat more rational; and the second, with representatives from [employer] to discuss his options for re- enrollment. Pt was seen today before these meetings to discuss progress since admission. Pt states he is "ok" today. He reports that he is aware of meeting and is looking forward to having some questions clarified. Pt states that he is aware that a letter was sent to his mother from [employer] explaining his options for school, and he reports "there was a lot of factually incorrect information." Pt states his primary goal for the meeting is to dispute the $5,000 charge as "it has only been explained with a bunch of accounting jargon, and I don't understand accounting jargon. He states he is also hopeful to talk with [employer] for some guidance with his criminal charges - but again states he will not make these phone calls from the psychiatric unit. Pt begins sharing his thoughts about his legal charges stating "It's my helpful nature that gets me into trouble. I have charges for furnishing alcohol to minors, I was just trying to be helpful but apparently here it is illegal. I think I just need to better understand the history of this culture. That legality is taken too seriously." Pt continues to lack insight into our legal system, still believing that there will be a way to expunge all of his criminal charges from his record if "I am able to get a decent billing clerk, or even talk to their supervisory air intercept controller if necessary." Pt does state t hat he feels he is making progress in finding a place to stay, and has requested assistance from his friends in further exploring this. We discussed that the treatment team would like to see a focus on the next concrete steps the patient can take toward discharge (housing, decision about returning to school, finances, etc). Pt verbalizes understanding, but then continues to express his thoughts on deeper, unrelated topics. Pt denied having additional questions, and meeting was ended as his mother had called in to complete the repeat family session. Physical Exam Psychiatric Orientation: alert, oriented x 3 and cooperative (superficially; frequently interrupts and argumentative) Apperance: appropriately dressed (casually, in t-shirt and scrub pants), + disheveled (hair is long and unkempt, unshaven) and appeared stated age Eye Contact: good eye contact Motor Behavior: + psychomotor agitation (appearing restless at times, animated in motor behavior) Speech: + pressured speech (still rapid, though slowed from admission) Affect: + anxious affect (appearing restless/anxious, with an irritable edge); + mood not congruent with affect Mood: no depressed mood ("Ok") Thought Process: + tangential thought process, + looseness of associations and + perseveration Thought Content: + preoccupation (with discharge) and + persecution Suicidal Thoughts: denies suicidal thoughts Homicidal Thoughts: denies homicidal thoughts Hallucinations: no auditory hallucinations and no visual hallucinations Cognition: attention grossly intact and language grossly intact; + recent memory not intact Insight: + impaired insight Judgement: + impaired judgement Vital Signs (Past 24 Hours) Last Vital Signs Temp 36.6 C 11/02/19 06:54 Pulse 81 11/02/19 06:55 Resp 16 11/02/19 06:54 BP 92/64 L 11/02/19 06:55 Pulse Ox 99 10/21/19 23:37 Results & Data ([facility]) Current Inpatient Medications Current Inpatient Medications: Current Inpatient Medications Acetaminophen (Tylenol) 650 mg PO Q4H PRN PRN Reason: Headache or Minor Fever Stop: 11/20/19 23:14 Al Hydrox/Mg Hydrox/Simethicone (Maalox) 30 ml PO Q4H PRN PRN Reason: GI Upset Stop: 11/20/19 23:14 Benztropine Mesylate (Cogentin) 1 mg PO Q6H PRN PRN Reason: dystonia Stop: 11/20/19 23:20 Bismuth Subsalicylate (Kaopectate) 15 ml PO PRN PRN PRN Reason: Loose Stool Stop: 11/20/19 23:14 Clonazepam (Klonopin) 0.5 mg PO HS JANET Stop: 11/27/19 21:59 Last Admin: 11/01/19 20:38 Dose: 0.5 mg Documented by: Haloperidol (Haldol) 5 mg PO Q4H PRN PRN Reason: agitation r/t psychosis Stop: 11/20/19 23:16 Last Admin: 10/22/19 08:03 Dose: 5 mg Documented by: Haloperidol Lactate (Haldol) 5 mg IM Q4H PRN PRN Reason: Agitation Stop: 11/20/19 23:16 Hydroxyzine HCl (Vistaril) 50 mg PO HSZ PRN PRN Reason: Insomnia Stop: 11/20/19 23:14 Last Admin: 10/27/19 02:53 Dose: 50 mg Documented by: Hydroxyzine HCl (Vistaril) 25 mg PO Q4H PRN PRN Reason: Anxiety Stop: 11/20/19 23:14 [place] Carbonate (Eskalith) 450 mg PO BID JANET Stop: 11/26/19 20:59 Last Admin: 11/02/19 07:34 Dose: 450 mg Documented by: Lorazepam (Ativan) 2 mg IM Q4H PRN PRN Reason: Agitation Stop: 11/20/19 23:17 Lorazepam (Ativan) 1 mg PO Q4H PRN PRN Reason: Anxiety/Agitation Stop: 11/20/19 23:19 Last Admin: 10/26/19 22:15 Dose: 1 mg Documented by: Magnesium Hydroxide (Milk Of Magnesia) 30 ml PO DAILY PRN PRN Reason: Constipation Stop: 11/20/19 23:14 Miscellaneous (Remove Nicoderm Patch) 1 ea N/A DAILY@[id number] [facility] Stop: 11/22/19 08:58 Last Admin: 11/02/19 07:36 Dose: Not Given Documented by: Nicotine (Nicoderm Cq) [address] [facility] Stop: 11/22/19 08:59 Last Admin: 11/02/19 07:36 Dose: Not Given Documented by: Nicotine Polacrilex (Nicorette 2mg) 1 piece MT Q1H PRN PRN Reason: Nicotine Withdrawal Stop: 11/21/19 08:40 Last Admin: 11/01/19 19:16 Dose: 1 piece Documented by: Paliperidone (Invega) [address] [facility] Stop: 11/24/19 08:59 Last Admin: 11/02/19 07:34 Dose: 6 mg Documented by: Paliperidone Palmitate (Invega Sustenna) 156 mg IM ONE ONE Stop: 11/05/19 10:01 Risperidone (Risperdal) 0.5 mg PO Q4H PRN PRN Reason: psychosis Stop: 11/21/19 09:13 Last Admin: 10/23/19 15:24 Dose: 0.5 mg Documented by: Sodium Chloride ([place] Nasal) 1 - 2 sprays NA PRN PRN PRN Reason: Nasal Dryness/Congestion Stop: 11/20/19 23:14 Mental Health & Subst Abuse Tx Therapist Name of Therapist: Edu Billings [facility] Orthopaedic Surgeon Name of Orthopaedic Surgeon: Not now but Carol Castanon in the past Post Discharge Appointments Primary Care Physician Name Of Family Doctor: [facility]
[2019-11-02] MEDS: NICOTINE POLACRILEX 2 MG GUM MT PRN ×4 (12:10→19:42)
[2019-11-02] MEDS: clonazePAM 0.5 MG TAB PO SCH (21:57)
[2019-11-03] MEDS: NICOTINE POLACRILEX 2 MG GUM MT PRN ×4 (07:58→18:00)
[2019-11-03] MEDS: LITHIUM CARBONATE 450 MG TABCR PO SCH ×2 (07:58→20:54)
[2019-11-03] MEDS: PALIPERIDONE 3 MG TABCR PO SCH (07:59)
[2019-11-03] MEDS: NICOTINE 14 MG/24 HR PATCH TD SCH (08:01)
[2019-11-03] MEDS ORDERED: clonazePAM 0.5 MG TAB PO PRN (10:25)
--- NOTE | 2019-11-03 12:02 | Psychiatric Progress Note ---
Date of Service November 03, 2019 Impression / Recommendations Impression 24-year-old male admitted involuntarily for inpatient psychiatric treatment on 10/21/2019 after presenting to the ED with disorganized thoughts and bizarre behavior. Friend brought patient to the ED and was safety planned home, but returned to the ED within hours on a 302 warrant. Petitioning statement was completed by his friend and indicated he had been noncompliant with medications for the past week, with worsening mental status/mood symptoms, disorganized thinking, confusion, and erratic behavior in the community. He stated he did not know what was real or a dream, and the only way to know would be to kill himself. Selmont-[place] Selmont was resumed and titrated, and paliperidone started with a plan to transition to a ALCALA given history of noncompliance. Patient is now attending some groups and has improved to the degree that he is less irritable and slightly more organized, but remains tangential, with loosening of associations, poor mood, and unable to participate in discharge planning due to the severity of his mood and psychotic symptoms. Pt was initiated on Invega Sustenna on 11/01/2019 - next injection scheduled for 11/05/2019. He is on a 303 as of 10/25. Reviewed. (1) Schizoaffective disorder, bipolar type: 10/21 - Diagnosis of bipolar I disorder, most recently prescribed risperidone 1mg BID and lithium 300mg BID. Pt admits to poor compliance with medications, though lithium level in ED was 0.5 which demonstrates some level of medication administration. Will resume these medications initially, recheck lithium level in 5 days. Will have risperidone 0.5mg available q4h prn for psychosis/agitation. - Pt demanding to leave, stating he does not need to be here. He is very disorganized at this time and demonstrating looseness of associations. - Admitted involuntarily for psychiatric treatment - 302 expires on 10/26/2019 at 1933 - Coordinate care with outpatient providers; medications most recently prescribed at [place] by Tari Brasher PA-C - Coordinate with the [facility] and patient's friend to gather collateral information - Will encourage attendance of group programming once patient is able to demonstrate appropriateness 10/22 - continue risperdal and lithium as above with prn haldol as above, Selmont-[place] Selmont level ordered for 10/27/19. Agree with Consideration with ALCALA but patient is not able to tolerate that discussion at this time. - pt is on 302 comittment, treatment team and by evaluation LOS estimated to be 7-9days, 302 expires 10/26/19 at 1933, will file for 303 hearing form AM of 10/26/19 as he remains illogical, agitated and unable to function in the community, unable to address safety risks that lead to hospitalization leaving inpatient care as the least restrictive and most appropriate level of care at this time, continue MNPR due to level of agitation and intrusiveness requiring consistent redirection of interpersonal space boundaries - coordinated care with outpt providers, and university, - waiting records from [place] to see if Fasting metabolic labs more recent than 08/2017 are available, if not FBS and FLipids will need ordered prior to discharge, ideally could be added to 10/27/19 labs if not before 10/23 - Pt continues to be tangential, hyperverbal, irritable, and demonstrate poor boundaries and intrusive behavior - Fortunately, he was agreeable with pursing an ALCALA and paliperidone was discussed given likelihood of tolerability and q4 week injection schedule being most ideal with regard to patient's history of noncompliance with medications/appointments - Will hold risperidone and initiate paliperidone 3mg dose today, titrating to 6mg qAM starting tomorrow morning. Can continue prn risperidone for the time being - Pt has verbalized willingness for communication with [facility]'s Student Care and Advocacy office - He is unwilling to consider case management referral at this time - Awaiting records from the [facility] regarding more recent fasting labs - 303 hearing scheduled for 10/26/2019 - Continue MNPR 10/24 - continue treatment plan -ordered fasting labs since not clear when last fasting labs obtained -303 hearing scheduled for 10/26/2019 and review this with pt and reviewed rationale for admission and ongoing treatment at hospital level of care being perused 10/25 continue treatment plan continue trying to obtain ALCALA Sustenna form of Invega addressing prior Auth process of his insurance reality testing and psychoeducation of pt's dx and current symptoms consider further titration of Invega oral dose 10/26 -No progress today in terms of obtaining prior authorization for Invega Sustenna -The patient's lithium level this morning was 0.6. He continues to exhibit pressured speech and flight of ideas. Today, we offered him an extra dose 300 mg of lithium carbonate immediate release, and then increased his dose of lithium carbonate to 450 mg twice a day (extended release). -The patient admits that he has a history of opening capsules" snorting" through nasal insufflation the contents, including lithium capsules. For that reason, we are preferring to give him tablets. -The plan is to continue oral Invega 6 mg a day and to convert to the long- acting intramuscular form once it is authorized. 10/27 -Trial clonazepam 0.5 mg p.o. nightly for antimanic effect and sleep augmentation 10/28 -Tolerating clonazepam with perhaps some improvement in sleep. We will continue treatment plan unchanged as above. -Reschedule next lithium trough for October 31 which will be 5 days following last dose escalation 10/29 -Encourage patient to participate fully in treatment and to identify ways to achieve stability. Encourage patient to work on a more detailed/solid discharge plan, as he changes his mind frequently about his plans when he leaves the hospital. -Patient continues to refuse recommendations for a BCM and for a family meeting. -Coordinate with his insurance to determine which ALCALA's are on formulary, as he has a history of repeated hospitalizations and noncompliance with treatment. 10/30 - Diagnosis adjusted, as patient continues to demonstrate behavior and verbalize history that seems to be more consistent with a primary thought disorder. Working diagnosis at this time of schizoaffective disorder, bipolar type. - Attempting to coordinate approval of Invega Sustenna with insurance. Appreciate assistance [facility] in this endeavor. It remains the recommendation that ALCALA be initiated as patient has had numerous psychiatrist hospitalizations related to noncompliance with medications. Sustenna is specifically being considered given opportunity for q4week dosing and that he is tolerating the medication thus far. - Selmont-[place] Selmont level to be repeated tomorrow morning 10/31 -Awaiting response from patient's insurance to approve use of Invega Sustenna before starting the ALCALA. We are also exploring getting this through a specialty pharmacy using the insurance co-pay card, as the patient's insurance has not been responsive and has refused to provide his formulary. Continue oral paliperidone until we can ensure he will be able to get Sustenna as an outpatient. -Continue lithium, trough level today 0.9. -Recommend meeting with the [facility], contact with his friend Ronald and repeat family meeting with his mother to work on a good discharge plan. -Encourage patient to work on his discharge plan independently, including making phone calls to determine where he will be living, determining if he can remain a student, addressing his upcoming court date/criminal charges, and clarifying his financial situation and how he will pay his bills. 11/01 - Informed Invega Vivianaenna has been approved for $0 copay - pt given initial 234mg IM injection yesterday afternoon, next injection of 156mg IM ordered for 11/04. - Continue lithium - Pt scheduled for family meeting with mother this morning, and representatives from [employer] (Student Care and Advocacy, Senior Clinical Data Analyst from patient's program, etc) this afternoon - Encouraged patient to focus on next concrete steps of his discharge plan - he has asked a friend for assistance with finding a room. More information on ability to return to school is likely to be discussed this afternoon. 11/02 --taper Invega to 3 mg and d/c on day of 2nd shot (11/04). Change Klonopin to prn. (2) Nicotine dependence: 10/22 - continue to offer NRT in form of patch and gum. Patient is pre- contemplational and declines smoking cessation resources at this time. for note he has h/o MJ abuse but UDS negative in ED and he states he has not smoked in 2-3 months, carried forward in this note for future provider knowledge. No action needed at this time. 10/23 - Continues to demand transfer to the [facility] where he would be permitted to smoke - Opportunity for lateral transfer was explored and facility declined patient - He makes it very clear he has not intention to quit smoking at this time' 10/24 -using nicotine gum for cravings, not open to smoking cessation education and too manic to handle this conversation at this time 10/26 -The patient tells us that he would like to stop smoking, but adds "probably not right now." He has been asking for his Nicorette gum on a regular basis, and does not respond to suggestions that he extend the duration between uses. Risk Factors Assessment Male: Yes Mental Health Diagnoses: Yes Substance Use Disorders: Yes Previous Psychiatric Hospitalization: Yes Smoker: Yes Protective Factors Assessment : No Responsible for Young Children: No Employed: No Supportive Family: No (living in [place]) Interval History Identifying Information ZAY MOMIN is a 24-year-old M who currently lives in [place], has a history of bipolar disorder and treatment noncompliance, and was brought to the ED 10/21/19 for a mental health evaluation and was safety planned home with a friend. He returned to the ED later that day on a 302 involuntary commitment for disorganized thoughts and mitra, after telling his friend he was going to jump from a window. 303 granted on 10/26/2019.Reviewed. Chief Complaint "I think I'm doing everything I'm supposed to this time". Review of Systems Sleep Information Total Hours of Sleep: 6.25 Sleep Comments: awake and out to the kitchen for water to drink at 0130 Meal Information Percent Meal Consumed - Breakfast: 100 Percent Meal Consumed - Lunch: 100 Percent Meal Consumed - Dinner: 100 Subjective Subjective Patient was seen & assessed and interval progress reviewed with treatment team. Patient known to me from previous stay. States that he doesn't need to be in hospital as found a place to stay. Mother is encouraging yoga. denies medication related side effects. Seems to question what to discuss with psychiatry vs. therapist. He is understanding parameters from [employer] for his fall enrollment. Physical Exam Psychiatric Orientation: alert Apperance: appropriately dressed Eye Contact: good eye contact Motor Behavior: no abnormal motor movements Speech: normal rate/rhythm/volume of speech Affect: euthymic affect Mood: + anxious mood (re: discharge) Thought Process: goal directed thought process Thought Content: reality based without delusions Suicidal Thoughts: denies suicidal thoughts Homicidal Thoughts: denies homicidal thoughts Hallucinations: no auditory hallucinations and no visual hallucinations Cognition: attention grossly intact Insight: + limited insight Judgement: + limited judgement Vital Signs (Past 24 Hours) Last Vital Signs Temp 36.6 C 11/03/19 06:00 Pulse 83 11/03/19 06:00 Resp 16 11/03/19 06:00 BP 94/60 L 11/03/19 06:00 Pulse Ox 99 10/21/19 23:37 Results & Data ([facility]) Current Inpatient Medications Current Inpatient Medications: Current Inpatient Medications Acetaminophen (Tylenol) 650 mg PO Q4H PRN PRN Reason: Headache or Minor Fever Stop: 11/20/19 23:14 Al Hydrox/Mg Hydrox/Simethicone (Maalox) 30 ml PO Q4H PRN PRN Reason: GI Upset Stop: 11/20/19 23:14 Benztropine Mesylate (Cogentin) 1 mg PO Q6H PRN PRN Reason: dystonia Stop: 11/20/19 23:20 Bismuth Subsalicylate (Kaopectate) 15 ml PO PRN PRN PRN Reason: Loose Stool Stop: 11/20/19 23:14 Clonazepam (Klonopin) 0.5 mg PO HS PRN PRN Reason: Anxiety/Insomnia Stop: 11/27/19 21:59 Haloperidol (Haldol) 5 mg PO Q4H PRN PRN Reason: agitation r/t psychosis Stop: 11/20/19 23:16 Last Admin: 10/22/19 08:03 Dose: 5 mg Documented by: Haloperidol Lactate (Haldol) 5 mg IM Q4H PRN PRN Reason: Agitation Stop: 11/20/19 23:16 Hydroxyzine HCl (Vistaril) 50 mg PO HSZ PRN PRN Reason: Insomnia Stop: 11/20/19 23:14 Last Admin: 10/27/19 02:53 Dose: 50 mg Documented by: Hydroxyzine HCl (Vistaril) 25 mg PO Q4H PRN PRN Reason: Anxiety Stop: 11/20/19 23:14 Selmont-[place] Carbonate (Eskalith) 450 mg PO BID [facility] Stop: 11/26/19 20:59 Last Admin: 11/03/19 07:58 Dose: 450 mg Documented by: Lorazepam (Ativan) 2 mg IM Q4H PRN PRN Reason: Agitation Stop: 11/20/19 23:17 Lorazepam (Ativan) 1 mg PO Q4H PRN PRN Reason: Anxiety/Agitation Stop: 11/20/19 23:19 Last Admin: 10/26/19 22:15 Dose: 1 mg Documented by: Magnesium Hydroxide (Milk Of Magnesia) 30 ml PO DAILY PRN PRN Reason: Constipation Stop: 11/20/19 23:14 Miscellaneous (Remove Nicoderm Patch) 1 ea N/A DAILY@0859 [facility] Stop: 11/22/19 08:58 Last Admin: 11/03/19 08:01 Dose: Not Given Documented by: Nicotine (Nicoderm Cq) 14 mg TD QAM [facility] Stop: 11/22/19 08:59 Last Admin: 11/03/19 08:01 Dose: Not Given Documented by: Nicotine Polacrilex (Nicorette 2mg) 1 piece MT Q1H PRN PRN Reason: Nicotine Withdrawal Stop: 11/21/19 08:40 Last Admin: 11/03/19 09:59 Dose: 1 piece Documented by: Paliperidone (Invega) 3 mg PO QAM [facility] Stop: 12/04/19 08:59 Paliperidone Palmitate (Invega Sustenna) 156 mg IM ONE ONE Stop: 11/05/19 10:01 Risperidone (Risperdal) 0.5 mg PO Q4H PRN PRN Reason: psychosis Stop: 11/21/19 09:13 Last Admin: 10/23/19 15:24 Dose: 0.5 mg Documented by: Sodium Chloride (Shannon Nasal) 1 - 2 sprays NA PRN PRN PRN Reason: Nasal Dryness/Congestion Stop: 11/20/19 23:14 Mental Health & Subst Abuse Tx Psychiatrist Name of Psychiatrist: Tori Marc Psychiatrist's Date of Appointment with Psychiatrist: 11/09/19 Time of Appointment with Psychiatrist: Please follow up to confirm time of appt Psychiatric Appointment Comment: [id number] Therapist Name of Therapist: [facility] Therapist's Time of Therapist Appointment: Will follow up with you to schedule an intake Therapy Appointment Comment: [address] [facility], [address] Membership Sales Advisor Name of Membership Sales Advisor: Student Care and Advocacy - Dayna Lisa Phone Number for Membership Sales Advisor: [phone] Time of Appointment with Membership Sales Advisor: Follow up per agreement - email with updates, call as needed Case Management Appointment Comment: [address] [facility] Post Discharge Appointments Primary Care Physician Name Of Family Doctor: [facility] Primary Care Time of Appointment with PCP: Please follow up as needed Provider Appointment Comment: [place] [address]
[2019-11-04] MEDS: NICOTINE POLACRILEX 2 MG GUM MT PRN ×7 (07:10→18:49)
[2019-11-04] MEDS: LITHIUM CARBONATE 450 MG TABCR PO SCH ×2 (08:34→21:22)
[2019-11-04] MEDS: PALIPERIDONE 3 MG TABCR PO SCH (08:34)
[2019-11-04] MEDS: NICOTINE 14 MG/24 HR PATCH TD SCH (08:37)
--- NOTE | 2019-11-04 11:08 | Psychiatric Progress Note ---
Date of Service November 04, 2019 Impression / Recommendations Impression 24-year-old male admitted involuntarily for inpatient psychiatric treatment on 10/21/2019 after presenting to the ED with disorganized thoughts and bizarre behavior. Friend brought patient to the ED and was safety planned home, but returned to the ED within hours on a 302 warrant. Petitioning statement was completed by his friend and indicated he had been noncompliant with medications for the past week, with worsening mental status/mood symptoms, disorganized thinking, confusion, and erratic behavior in the community. He stated he did not know what was real or a dream, and the only way to know would be to kill himself. Bazine was resumed and titrated, and paliperidone started with a plan to transition to a ALCALA given history of noncompliance. Patient is now attending some groups and has improved to the degree that he is less irritable and slightly more organized, but remains tangential, with loosening of associations, poor mood, and unable to participate in discharge planning due to the severity of his mood and psychotic symptoms. Pt was initiated on Invega Sustenna on 11/01/2019 - next injection scheduled for 11/05/2019. He is on a 303 as of 10/25. Reviewed. dx schizoaffective disorder 11/03 continue current meds and treatment plan. Risk Factors Assessment Male: Yes Mental Health Diagnoses: Yes Substance Use Disorders: Yes Previous Psychiatric Hospitalization: Yes Smoker: Yes Protective Factors Assessment : No Responsible for Young Children: No Employed: No Supportive Family: No (living in [facility]) Interval History Identifying Information ZAY MOMIN is a 24-year-old M who currently lives in [place], has a history of bipolar disorder and treatment noncompliance, and was brought to the ED 10/21/19 for a mental health evaluation and was safety planned home with a friend. He returned to the ED later that day on a 302 involuntary commitment for disorganized thoughts and mitra, after telling his friend he was going to jump from a window. 303 granted on 10/26/2019.Reviewed. Chief Complaint "that landlord is connected". Review of Systems Sleep Information Total Hours of Sleep: 8.5 Sleep Comments: awake and out to the kitchen for water to drink at 0130 Meal Information Percent Meal Consumed - Breakfast: 100 Percent Meal Consumed - Lunch: 0 Percent Meal Consumed - Dinner: 100 Subjective Subjective Patient was seen & assessed and interval progress reviewed with nursing. no new issues overnight, confirmed address [facility] his [facility] a [facility] after his stay, states his friend Ronald is available. listed things he hopes to work on when discharged re: legal matters, reality based, does feel land[place] may have reported him to police as well but not agitated about that, realizes it's a thought, no intent or plan to hurt or harm anyone. Recognizes his anger has been problematic when off meds and how he can maintain services, etc following stay. Physical Exam Psychiatric Orientation: alert and oriented x 3 Apperance: appropriately dressed and appropriately groomed Eye Contact: good eye contact Motor Behavior: no abnormal motor movements Speech: normal rate/rhythm/volume of speech Affect: euthymic affect Thought Process: + circumstantial thought process (slightly) Thought Content: reality based without delusions Suicidal Thoughts: denies suicidal thoughts Homicidal Thoughts: denies homicidal thoughts Hallucinations: no auditory hallucinations and no visual hallucinations Insight: + limited insight Judgement: + limited judgement Vital Signs (Past 24 Hours) Last Vital Signs Temp 36.4 C L 11/04/19 06:43 Pulse 74 11/04/19 06:44 Resp 18 11/04/19 06:43 BP 94/60 L 11/04/19 06:44 Pulse Ox 99 10/21/19 23:37 Results & Data ([facility]) Current Inpatient Medications Current Inpatient Medications: Current Inpatient Medications Acetaminophen (Tylenol) 650 mg PO Q4H PRN PRN Reason: Headache or Minor Fever Stop: 11/20/19 23:14 Al Hydrox/Mg Hydrox/Simethicone (Maalox) 30 ml PO Q4H PRN PRN Reason: GI Upset Stop: 11/20/19 23:14 Benztropine Mesylate (Cogentin) 1 mg PO Q6H PRN PRN Reason: dystonia Stop: 11/20/19 23:20 Bismuth Subsalicylate (Kaopectate) 15 ml PO PRN PRN PRN Reason: Loose Stool Stop: 11/20/19 23:14 Clonazepam (Klonopin) 0.5 mg PO HS PRN PRN Reason: Anxiety/Insomnia Stop: 11/27/19 21:59 Haloperidol (Haldol) 5 mg PO Q4H PRN PRN Reason: agitation r/t psychosis Stop: 11/20/19 23:16 Last Admin: 10/22/19 08:03 Dose: 5 mg Documented by: Haloperidol Lactate (Haldol) 5 mg IM Q4H PRN PRN Reason: Agitation Stop: 11/20/19 23:16 Hydroxyzine HCl (Vistaril) 50 mg PO HSZ PRN PRN Reason: Insomnia Stop: 11/20/19 23:14 Last Admin: 10/27/19 02:53 Dose: 50 mg Documented by: Hydroxyzine HCl (Vistaril) 25 mg PO Q4H PRN PRN Reason: Anxiety Stop: 11/20/19 23:14 Bazine Carbonate (Eskalith) 450 mg PO BID [facility] Stop: 11/26/19 20:59 Last Admin: 11/04/19 08:34 Dose: 450 mg Documented by: Lorazepam (Ativan) 2 mg IM Q4H PRN PRN Reason: Agitation Stop: 11/20/19 23:17 Lorazepam (Ativan) 1 mg PO Q4H PRN PRN Reason: Anxiety/Agitation Stop: 11/20/19 23:19 Last Admin: 10/26/19 22:15 Dose: 1 mg Documented by: Magnesium Hydroxide (Milk Of Magnesia) 30 ml PO DAILY PRN PRN Reason: Constipation Stop: 11/20/19 23:14 Miscellaneous (Remove Nicoderm Patch) 1 ea N/A DAILY@0859 [facility] Stop: 11/22/19 08:58 Last Admin: 11/04/19 08:37 Dose: Not Given Documented by: Nicotine (Nicoderm Cq) 14 mg TD [facility] Stop: 11/22/19 08:59 Last Admin: 11/04/19 08:37 Dose: Not Given Documented by: Nicotine Polacrilex (Nicorette 2mg) 1 piece MT Q1H PRN PRN Reason: Nicotine Withdrawal Stop: 11/21/19 08:40 Last Admin: 11/04/19 09:00 Dose: 1 piece Documented by: Paliperidone (Invega) 3 mg PO QAM [facility] Stop: 12/04/19 08:59 Last Admin: 11/04/19 08:34 Dose: 3 mg Documented by: Paliperidone Palmitate (Invega Sustenna) 156 mg IM ONE ONE Stop: 11/05/19 10:01 Risperidone (Risperdal) 0.5 mg PO Q4H PRN PRN Reason: psychosis Stop: 11/21/19 09:13 Last Admin: 10/23/19 15:24 Dose: 0.5 mg Documented by: Sodium Chloride (Pelzer Nasal) 1 - 2 sprays NA PRN PRN PRN Reason: Nasal Dryness/Congestion Stop: 11/20/19 23:14 Mental Health & Subst Abuse Tx Psychiatrist Name of Psychiatrist: Tori Marc Psychiatrist's Date of Appointment with Psychiatrist: 11/09/19 Time of Appointment with Psychiatrist: Please follow up to confirm time of appt Psychiatric Appointment Comment: [facility] Therapist Name of Therapist: [facility] Therapist's Time of Therapist Appointment: Will follow up with you to schedule an intake Therapy Appointment Comment: [address] [facility], [address] [facility], [place] Assisted Living Nursing Director Name of Assisted Living Nursing Director: Student [facility] and Advocacy - Dayna Lisa Phone Number for Assisted Living Nursing Director: [phone] Time of Appointment with Assisted Living Nursing Director: Follow up per agreement - email with updates, call as needed Case Management Appointment Comment: [address] [facility] Post Discharge Appointments Primary Care Physician Name Of Family Doctor: AMY BURDEN Primary Care Time of Appointment with PCP: Please follow up as needed Provider [facility] [id number] Contact Information Discharge [address]: [address] [place] [address],[place] [id number]
[2019-11-05] MEDS: LITHIUM CARBONATE 450 MG TABCR PO SCH ×2 (08:48→20:56)
[2019-11-05] MEDS: PALIPERIDONE 3 MG TABCR PO SCH (08:48)
[2019-11-05] MEDS: NICOTINE 14 MG/24 HR PATCH TD SCH (08:49)
[2019-11-05] MEDS: NICOTINE POLACRILEX 2 MG GUM MT PRN ×6 (08:57→19:24)
[2019-11-05] MEDS ORDERED: PALIPERIDONE PALMITATE 156 MG/ML SYR IM ONE (10:00)
--- NOTE | 2019-11-05 10:51 | Psychiatric Progress Note ---
Date of Service November 05, 2019 Impression / Recommendations Impression 24-year-old male admitted involuntarily for inpatient psychiatric treatment on 10/21/2019 after presenting to the ED with disorganized thoughts and bizarre behavior. Friend brought patient to the ED and was safety planned home, but returned to the ED within hours on a 302 warrant. Petitioning statement was completed by his friend and indicated he had been noncompliant with medications for the past week, with worsening mental status/mood symptoms, disorganized thinking, confusion, and erratic behavior in the community. He stated he did not know what was real or a dream, and the only way to know would be to kill himself. [place] was resumed and titrated, and paliperidone started with a plan to transition to a [place] given history of noncompliance. Patient is now attending some groups and has improved to the degree that he is less irritable and slightly more organized, but remains tangential, with loosening of associations, poor mood, and unable to participate in discharge planning due to the severity of his mood and psychotic symptoms. Pt was initiated on Invega Sustenna on 11/01/2019 - next injection scheduled for 11/05/2019. He is on a 303 as of 10/25. Reviewed. dx schizoaffective disorder 11/04 continue current meds and treatment plan. Risk Factors Assessment Male: Yes Mental Health Diagnoses: Yes Substance Use Disorders: Yes Previous Psychiatric Hospitalization: Yes Smoker: Yes Protective Factors Assessment : No Responsible for Young Children: No Employed: No Supportive Family: No (living in [facility]) Interval History Identifying Information ZAY MOMIN is a 24-year-old M who currently lives in [place], has a history of bipolar disorder and treatment noncompliance, and was brought to the ED 10/21/19 for a mental health evaluation and was safety planned home with a friend. He returned to the ED later that day on a 302 involuntary commitment for disorganized thoughts and mitra, after telling his friend he was going to jump from a window. 303 granted on 10/26/2019.Reviewed. Chief Complaint "I don't have anything, no wallet, no passport". Review of Systems Sleep Information Total Hours of Sleep: 6.5 Sleep Comments: awake and out to the kitchen for water to drink at 0130 Meal Information Percent Meal Consumed - Breakfast: 100 Percent Meal Consumed - Lunch: 100 Percent Meal Consumed - Dinner: 100 Subjective Subjective Patient was seen & assessed and interval progress reviewed with nursing and social work. Scheduled for 2nd injection today. Patient had been pushing for discharge. Reviewed transition from hospital plan as currently main support is in [place] (driving home late to night). Same friend arranged for his apartment room for next month. They have exhausted other options for local support today and he does not have access to money (no bank card) or ID. Physical Exam Psychiatric Orientation: alert Apperance: appropriately dressed Eye Contact: good eye contact Motor Behavior: no abnormal motor movements Speech: normal rate/rhythm/volume of speech Affect: euthymic affect Mood: + anxious mood Thought Process: + circumstantial thought process Thought Content: reality based without delusions (though still limited insight into former delusions) Suicidal Thoughts: denies suicidal thoughts Homicidal Thoughts: denies homicidal thoughts Hallucinations: no auditory hallucinations and no visual hallucinations Vital Signs (Past 24 Hours) Last Vital Signs Temp 36.7 C 11/05/19 06:31 Pulse 73 11/05/19 06:32 Resp 18 11/05/19 06:31 BP 88/54 L 11/05/19 06:32 Pulse Ox 99 10/21/19 23:37 Results & Data ([facility]) Current Inpatient Medications Current Inpatient Medications: Current Inpatient Medications Acetaminophen (Tylenol) 650 mg PO Q4H PRN PRN Reason: Headache or Minor Fever Stop: 11/20/19 23:14 Al Hydrox/Mg Hydrox/Simethicone (Maalox) 30 ml PO Q4H PRN PRN Reason: GI Upset Stop: 11/20/19 23:14 Benztropine Mesylate (Cogentin) 1 mg PO Q6H PRN PRN Reason: dystonia Stop: 11/20/19 23:20 Bismuth Subsalicylate (Kaopectate) 15 ml PO PRN PRN PRN Reason: Loose Stool Stop: 11/20/19 23:14 Clonazepam (Klonopin) 0.5 mg PO HS PRN PRN Reason: Anxiety/Insomnia Stop: 11/27/19 21:59 Haloperidol (Haldol) 5 mg PO Q4H PRN PRN Reason: agitation r/t psychosis Stop: 11/20/19 23:16 Last Admin: 10/22/19 08:03 Dose: 5 mg Documented by: Haloperidol Lactate (Haldol) 5 mg IM Q4H PRN PRN Reason: Agitation Stop: 11/20/19 23:16 Hydroxyzine HCl (Vistaril) 50 mg PO HSZ PRN PRN Reason: Insomnia Stop: 11/20/19 23:14 Last Admin: 10/27/19 02:53 Dose: 50 mg Documented by: Hydroxyzine HCl (Vistaril) 25 mg PO Q4H PRN PRN Reason: Anxiety Stop: 11/20/19 23:14 [place] Carbonate (Eskalith) 450 mg PO BID [facility] Stop: 11/26/19 20:59 Last Admin: 11/05/19 08:48 Dose: 450 mg Documented by: Lorazepam (Ativan) 2 mg IM Q4H PRN PRN Reason: Agitation Stop: 11/20/19 23:17 Lorazepam (Ativan) 1 mg PO Q4H PRN PRN Reason: Anxiety/Agitation Stop: 11/20/19 23:19 Last Admin: 10/26/19 22:15 Dose: 1 mg Documented by: Magnesium Hydroxide (Milk Of Magnesia) 30 ml PO DAILY PRN PRN Reason: Constipation Stop: 11/20/19 23:14 Miscellaneous (Remove Nicoderm Patch) 1 ea N/A DAILY@0859 [facility] Stop: 11/22/19 08:58 Last Admin: 11/05/19 08:48 Dose: Not Given Documented by: Nicotine (Nicoderm Cq) 14 mg TD QAM [facility] Stop: 11/22/19 08:59 Last Admin: 11/05/19 08:49 Dose: Not Given Documented by: Nicotine Polacrilex (Nicorette 2mg) 1 piece MT Q1H PRN PRN Reason: Nicotine Withdrawal Stop: 11/21/19 08:40 Last Admin: 11/05/19 10:39 Dose: 1 piece Documented by: Paliperidone (Invega) 3 mg PO QAM [facility] Stop: 12/04/19 08:59 Last Admin: 11/05/19 08:48 Dose: 3 mg Documented by: Risperidone (Risperdal) 0.5 mg PO Q4H PRN PRN Reason: psychosis Stop: 11/21/19 09:13 Last Admin: 10/23/19 15:24 Dose: 0.5 mg Documented by: Sodium Chloride ([place]es Nasal) 1 - 2 sprays NA PRN PRN PRN Reason: Nasal Dryness/Congestion Stop: 11/20/19 23:14 Mental Health & Subst Abuse Tx Psychiatrist Name of Psychiatrist: Tori Marc Psychiatrist's Date of Appointment with Psychiatrist: 11/09/19 Time of Appointment with Psychiatrist: Please follow up to confirm time of appt Psychiatric Appointment Comment: [facility] Therapist Name of Therapist: [facility] The[facility]ist's Time of Therapist Appointment: Will follow up with you to schedule an intake Therapy Appointment Comment: [address] [facility], [address], [place] Physician Assistant Psychiatry Name of Physician Assistant Psychiatry: [facility] Dayna Lisa Phone Number for Physician Assistant Psychiatry: [phone] Time of Appointment with Physician Assistant Psychiatry: Follow up per agreement - email with updates, call as needed Case Management Appointment Comment: [address] [place] [address] Post Discharge Appointments Primary Care Physician Name Of Family Doctor: AMY BURDEN Primary Care Time of Appointment with PCP: Please follow up as needed Provider Appointment Comment: [facility], [place] [address] Contact Information Discharge Address: [address] [place] [address],[place] [id number]
[2019-11-06] MEDS: NICOTINE POLACRILEX 2 MG GUM MT PRN ×2 (07:46→09:08)
[2019-11-06] MEDS: PALIPERIDONE 3 MG TABCR PO SCH (09:06)
[2019-11-06] MEDS: LITHIUM CARBONATE 450 MG TABCR PO SCH (09:06)
[2019-11-06] MEDS: NICOTINE 14 MG/24 HR PATCH TD SCH (09:07)
--- NOTE | 2019-11-06 11:14 | Discharge Summary ---
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 who was most recently on our unit in and was treated for a diagnosis of bipolar 1 disorder. Patient presented to the ED the day of admission with a close friend reporting concerns related to patient's bizarre behavior. Despite verbalizing concern, this friend was unwilling to complete a petitioning statement and the patient was unwilling to remain in the hospital or consider psychiatric treatment. As there was discrepancy between the patient's report and the reports of this friend, patient was ultimately safety plan home with this friend. ED documentation suggests the patient had verbalized thoughts to jump from a window when he returned home, contemplating whether or not he should kill himself. Friend was again concerned with this behavior and patient returned to the ED on a 302 warrant. Pt was reportedly agitated in the ED and did receive haloperidol and lorazepam. He is reportedly irritable and loud on our unit this morning and is reportedly demonstrating inappropriate boundaries. Pt had difficulty with psychiatric evaluation, as he continues to be tangential and demonstrates loose associations. He begins our conversation by telling this provider "I do what I am doing. I feel like a hypocrite." When asked why he feels this way, the patient begins talking about the Beatles and [place], reporting that [place] was killed by someone from his fan club and inquires "why would someone from his fan club murder him?" Pt then begins speaking about the Catcher in the [place], and becomes rather frustrated stating "what is the rye? I don't know what the rye is." This provider informed the patient that is sounded as though he was experiencing some deep thoughts and wondered if these two ideas were related. The patient responded with "I try to solve problems of existential crisis. I know the difference between transcendentalism and existentialism." He then abruptly changes the subject and asks, "Why are you doing this? You know this is torture for me. I don't want to commit suicide. Do I look like someone who wants to commit suicide. I did not leave a note. I've learned all my life lessons from [place]. If there is light in your life, you follow it." Pt was asked if he believes he is having difficulty keeping his thoughts straight, and rapidly responds by stating "I am straight!" Pt begins talking about feeling uncomfortable, and then compares himself to monielizabeth - "Mony scared, eats grass, jumps. Bunny scared, eats grass, jumps. Bunny scared, eats grass jumps. Joao likes grass, I given them grass, I like grass, I use it to calm my mind. Marijuana helps my thoughts." Pt states he has not smoked marijuana in 2-3 months. This provider attempted to discuss medications with the patient, who informs this provider that "I don't like lithium. It is a pure chemical on the periodic table. So is mercury. And mercury is bad. How is lithium good." He is now reporting that he is compliant with his medications "nearly all of the time." He does report feeling that "olanzapine was better" than the risperidone he was most recently prescribed, but is unable to provide any explanation as to why he feels this way, stating only "I can't say." Pt was asked about hallucinations and states "I don't see and I don't hear. I see what I see, and I hear what I hear. Then I speak, but first I smell." Pt demanded to know when he would be released, informing this provider that he is scheduled to move to a new apartment in a few days. When asked if patient had any concerns at this time, he states "I have only one concern, that I don't want to be stuck here." He denies other needs at this time. Physical Exam Mental Examination See admission H&P and day of discharge assessment. Vital Signs (Past 24 Hours) Last Vital Signs Temp 36.7 C 11/06/19 06:44 Pulse 71 11/06/19 06:45 Resp 18 11/06/19 06:44 BP 82/56 L 11/06/19 06:45 Pulse Ox 99 10/21/19 23:37 Principal Diagnosis schizoaffective disorder, bipolar type Psychiatric Data See daily care summary. Patient was restarted on hs Klonopin, lithium titrated, and Risperdal switched to Invega with conversion to long acting injectable. Both loading doses were given in the hospital and specialty care pharmacy issue and auth info were passed on to [place] for ongoing medication management. A friend Ronald was involved in session with [facility] and is helping patient to transition to a sublet for the summer. He has a plan to access his banking information upon disc harge. Day of Discharge Assessment Noman is much improved from my previous interactions with him. He is calm, pleasant, still circumstantial but much more organized and he is no longer expressing any delusions. He continues to deny thoughts to harm himself or others and has clear guidelines from his department for fall. He verbalizes safety plan and is stable for discharge to outpatient level of care. PDMP database was queried prior to issuing short supply of prn Klonopin. He contracted not to combine with ETOH or other sedating substances and is aware this is short term use. 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 Risk Factors Assessment Male: Yes Mental Health Diagnoses: Yes Substance Use Disorders: Yes Previous Psychiatric Hospitalization: Yes Smoker: Yes Protective Factors Assessment : No Responsible for Young Children: No Employed: No Supportive Family: No (living in [facility]) Tobacco Cessation at Discharge Tobacco Cessation Medication Prescribed at Discharge: Not Applicable/Non-Smoker Total Time Total Time Spent: Greater Than 30 Minutes Total Time Includes: Examination of the patient, Discharge Planning and Medication Reconciliation Discharge Data Lab Results 10/21/19 10/21/19 10/21/19 18:09 18:09 18:27 WBC 10.32 RBC 4.77 Hgb 13.9 L Hct 40.5 L MCV 84.9 MCH 29.1 MCHC 34.3 RDW Std Deviation 39.1 RDW Coeff of Giselle 12.6 Plt Count 267 MPV 10.2 Immature Gran % (Auto) 0.3 Neut % (Auto) 53.2 Lymph % (Auto) 33.1 [place] % (Auto) 11.5 Eos % (Auto) 1.6 Baso % (Auto) 0.3 Immature Gran # (Auto) 0.03 H Neut # (Auto) 5.48 Lymph # (Auto) 3.42 H [place] # (Auto) 1.19 H Eos # (Auto) 0.17 Baso # (Auto) 0.03 Sodium Potassium Chloride Carbon Dioxide Anion Gap BUN Creatinine Est Cr Clr Drug Dosing Est GFR ( Amer) Est GFR (Non-Af Amer) BUN/Creatinine Ratio Glucose Fasting Glucose Calcium Total Bilirubin AST ALT Alkaline Phosphatase Total Protein Albumin Globulin Albumin/Globulin Ratio Triglycerides Cholesterol LDL Cholesterol, Calc VLDL Cholesterol, Calc HDL Cholesterol Cholesterol/HDL Ratio TSH Urine Color Yellow Urine Appearance Clear Urine pH 6.5 Ur Specific Allyn 1.010 Urine Protein Negative Urine Glucose (UA) Negative Urine Ketones Trace H Urine Blood Trace H Urine Nitrite Negative Urine Bilirubin Negative Urine Urobilinogen Negative Ur Leukocyte Esterase Negative Urine WBC (Auto) 0 Urine RBC (Auto) 0-4 U Hyaline Cast (Auto) 0 U Epithel Cells (Auto) 0-5 Urine Bacteria (Auto) Negative Salicylates Urine Opiates Screen Neg Ur Methadone, Qual Neg Acetaminophen Urine Barbiturates Neg Ur Phencyclidine (PCP) Neg U Amphetamin/Meth Scrn Neg MDMA (Ecstasy) Screen Neg U Benzodiazepines Scrn Neg [place] Ur Cocaine Metabolite Neg U Marijuana (THC) Screen Neg Ethyl Alcohol mg/dL 10/21/19 10/21/19 10/21/19 18:27 18:27 18:27 WBC RBC Hgb Hct MCV MCH MCHC RDW Std Deviation RDW Coeff of Giselle Plt Count MPV Immature Gran % (Auto) Neut % (Auto) Lymph % (Auto) [place] % (Auto) Eos % (Auto) Baso % (Auto) Immature Gran # (Auto) Neut # (Auto) Lymph # (Auto) [place] # (Auto) Eos # (Auto) Baso # (Auto) Sodium 136 Potassium 3.4 L Chloride 103 Carbon Dioxide 23 Anion Gap 10.0 BUN 16 Creatinine 1.00 Est Cr Clr Drug Dosing 99.0 Est GFR ( Amer) 119.9 Est GFR (Non-Af Amer) 103.4 BUN/Creatinine Ratio 16.2 Glucose 90 Fasting Glucose Calcium 9.4 Total Bilirubin 0.9 AST 23 ALT 21 Alkaline Phosphatase 55 Total Protein 8.9 H Albumin 4.8 Globulin 4.1 H Albumin/Globulin Ratio 1.2 Triglycerides Cholesterol LDL Cholesterol, Calc VLDL Cholesterol, Calc HDL Cholesterol Cholesterol/HDL Ratio TSH 1.080 Urine Color Urine Appearance Urine pH Ur Specific Allyn Urine Protein Urine Glucose (UA) Urine Ketones Urine Blood Urine Nitrite Urine Bilirubin Urine Urobilinogen Ur Leukocyte Esterase Urine WBC (Auto) Urine RBC (Auto) U Hyaline Cast (Auto) U Epithel Cells (Auto) Urine Bacteria (Auto) Salicylates 2.3 L Urine Opiates Screen Ur Methadone, Qual Acetaminophen < 2 L Urine Barbiturates Ur Phencyclidine (PCP) U Amphetamin/Meth Scrn MDMA (Ecstasy) Screen U Benzodiazepines Scrn [place] 0.5 L Ur Cocaine Metabolite U Marijuana (THC) Screen Ethyl Alcohol mg/dL < 3.0 10/27/19 10/27/19 11/01/19 07:52 07:52 06:13 WBC RBC Hgb Hct MCV MCH MCHC RDW Std Deviation RDW Coeff of Giselle Plt Count MPV Immature Gran % (Auto) Neut % (Auto) Lymph % (Auto) [place] % (Auto) Eos % (Auto) Baso % (Auto) Immature Gran # (Auto) Neut # (Auto) Lymph # (Auto) [place] # (Auto) Eos # (Auto) Baso # (Auto) Sodium Potassium Chloride Carbon Dioxide Anion Gap BUN Creatinine Est Cr Clr Drug Dosing Est GFR ( Amer) Est GFR (Non-Af Amer) BUN/Creatinine Ratio Glucose Fasting Glucose 93 Calcium Total Bilirubin AST ALT Alkaline Phosphatase Total Protein Albumin Globulin Albumin/Globulin Ratio Triglycerides 151 H Cholesterol 176 LDL Cholesterol, Calc 108 VLDL Cholesterol, Calc 30 HDL Cholesterol 38 Cholesterol/HDL Ratio 5 TSH Urine Color Urine Appearance Urine pH Ur Specific Allyn Urine Protein Urine Glucose (UA) Urine Ketones Urine Blood Urine Nitrite Urine Bilirubin Urine Urobilinogen Ur Leukocyte Esterase Urine WBC (Auto) Urine RBC (Auto) U Hyaline Cast (Auto) U Epithel Cells (Auto) Urine Bacteria (Auto) Salicylates Urine Opiates Screen Ur Methadone, Qual Acetaminophen Urine Barbiturates Ur Phencyclidine (PCP) U Amphetamin/Meth Scrn MDMA (Ecstasy) Screen U Benzodiazepines Scrn [place] 0.6 0.9 Ur Cocaine Metabolite U Marijuana (THC) Screen Ethyl Alcohol mg/dL Hospital Course (1) Schizoaffective disorder, bipolar type: 10/21 - Diagnosis of bipolar I disorder, most recently prescribed risperidone 1mg BID and lithium 300mg BID. Pt admits to poor compliance with medications, though lithium level in ED was 0.5 which demonstrates some level of medication administration. Will resume these medications initially, recheck lithium level in 5 days. Will have risperidone 0.5mg available q4h prn for psychosis/agitation. - Pt demanding to leave, stating he does not need to be here. He is very disorganized at this time and demonstrating looseness of associations. - Admitted involuntarily for psychiatric treatment - 302 expires on 10/26/2019 at 1933 - Coordinate care with outpatient providers; medications most recently prescribed at [place] by Tari Brasher PA-C - Coordinate with the University and patient's friend to gather collateral information - Will encourage attendance of group programming once patient is able to demonstrate appropriateness 10/22 - continue risperdal and lithium as above with prn haldol as above, [place] level ordered for 10/27/19. Agree with Consideration with ALCALA but patient is not able to tolerate that discussion at this time. - pt is on 302 comittment, treatment team and by evaluation LOS estimated to be 7-9days, 302 expires 10/26/19 at 1933, will file for 303 hearing form AM of 10/26/19 as he remains illogical, agitated and unable to function in the community, unable to address safety risks that lead to hospitalization leaving inpatient care as the least restrictive and most appropriate level of care at this time, continue MNPR due to level of agitation and intrusiveness requiring consistent redirection of interpersonal space boundaries - coordinated care with outpt providers, and [place], - waiting records from [facility] to see if Fasting metabolic labs more recent than 08/2017 are available, if not FBS and FLipids will need ordered prior to discharge, ideally could be added to 10/27/19 labs if not before 10/23 - Pt continues to be tangential, hyperverbal, irritable, and demonstrate poor boundaries and intrusive behavior - Fortunately, he was agreeable with pursing an ALCALA and paliperidone was discussed given likelihood of tolerability and q4 week injection schedule being most ideal with regard to patient's history of noncompliance with medications/appointments - Will hold risperidone and initiate paliperidone 3mg dose today, titrating to 6mg qAM starting tomorrow morning. Can continue prn risperidone for the time being - Pt has verbalized willingness for communication with [employer]'s [facility] office - He is unwilling to consider case management referral at this time - Awaiting records from the [facility] regarding more recent fasting labs - 303 hearing scheduled for 10/26/2019 - Continue MNPR 10/24 - continue treatment plan -ordered fasting labs since not clear when last fasting labs obtained -303 hearing scheduled for 10/26/2019 and review this with pt and reviewed rationale for admission and ongoing treatment at hospital level of care being perused 10/25 continue treatment plan continue trying to obtain ALCALA Sustenna form of Invega addressing prior Auth process of his insurance reality testing and psychoeducation of pt's dx and current symptoms consider further titration of Invega oral dose 10/26 -No progress today in terms of obtaining prior authorization for Invega Sustenna -The patient's lithium level this morning was 0.6. He continues to exhibit pressured speech and flight of ideas. Today, we offered him an extra dose 300 mg of lithium carbonate immediate release, and then increased his dose of lithium carbonate to 450 mg twice a day (extended release). -The patient admits that he has a history of opening capsules" snorting" through nasal insufflation the contents, including lithium capsules. For that reason, we are preferring to give him tablets. -The plan is to continue oral Invega 6 mg a day and to convert to the long- acting intramuscular form once it is authorized. 10/27 -Trial clonazepam 0.5 mg p.o. nightly for antimanic effect and sleep augmentation 10/28 -Tolerating clonazepam with perhaps some improvement in sleep. We will continue treatment plan unchanged as above. -Reschedule next lithium trough for October 31 which will be 5 days following last dose escalation 10/29 -Encourage patient to participate fully in treatment and to identify ways to achieve stability. Encourage patient to work on a more detailed/solid discharge plan, as he changes his mind frequently about his plans when he leaves the hospital. -Patient continues to refuse recommendations for a BCM and for a family meeting. -Coordinate with his insurance to determine which ALCALA's are on formulary, as he has a history of repeated hospitalizations and noncompliance with treatment. 10/30 - Diagnosis adjusted, as patient continues to demonstrate behavior and verbalize history that seems to be more consistent with a primary thought disorder. Working diagnosis at this time of schizoaffective disorder, bipolar type. - Attempting to coordinate approval of Invega Sustenna with insurance. Appreciate assistance [facility] in this endeavor. It remains the recommendation that ALCALA be initiated as patient has had numerous psychiatrist hospitalizations related to noncompliance with medications. Sustenna is specifically being considered given opportunity for q4week dosing and that he is tolerating the medication thus far. - [place] level to be repeated tomorrow morning 10/31 -Awaiting response from patient's insurance to approve use of Invega Sustenna before starting the ALCALA. We are also exploring getting this through a specialty pharmacy using the insurance co-pay card, as the patient's insurance has not been responsive and has refused to provide his formulary. Continue oral paliperidone until we can ensure he will be able to get Sustenna as an outpatient. -Continue lithium, trough level today 0.9. -Recommend meeting with the University, contact with his friend Ronald and repeat family meeting with his mother to work on a good discharge plan. -Encourage patient to work on his discharge plan independently, including making phone calls to determine where he will be living, determining if he can remain a student, addressing his upcoming court date/criminal charges, and clarifying his financial situation and how he will pay his bills. 11/01 - Informed Invega Sustenna has been approved for $0 copay - pt given initial 234mg IM injection yesterday afternoon, next injection of 156mg IM ordered for 11/04. - Continue lithium - Pt scheduled for family meeting with mother this morning, and representatives from [employer] (Student Care and Advocacy, [employer] from patient's program, etc) this afternoon - Encouraged patient to focus on next concrete steps of his discharge plan - he has asked a friend for assistance with finding a room. More information on ability to return to school is likely to be discussed this afternoon. 11/02 --taper Invega to 3 mg and d/c on day of 2nd shot (11/04). Change Klonopin to prn. (2) Nicotine dependence: 10/22 - continue to offer NRT in form of patch and gum. Patient is pre- contemplational and declines smoking cessation resources at this time. for note he has h/o MJ abuse but UDS negative in ED and he states he has not smoked in 2-3 months, carried forward in this note for future provider knowledge. No action needed at this time. 10/23 - Continues to demand transfer to the [facility] where he would be permitted to smoke - Opportunity for lateral transfer was explored and facility declined patient - He makes it very clear he has not intention to quit smoking at this time' 10/24 -using nicotine gum for cravings, not open to smoking cessation education and too manic to handle this conversation at this time 10/26 -The patient tells us that he would like to stop smoking, but adds "probably not right now." He has been asking for his Nicorette gum on a regular basis, and does not respond to suggestions that he extend the duration between uses. Mental Health & Subst Abuse Tx Psychiatrist Name of Psychiatrist: Tori Marc Psychiatrist's Date of Appointment with Psychiatrist: 11/17/19 Time of Appointment with Psychiatrist: 10:20 a.m. Psychiatric Appointment Comment: [facility] Therapist Name of Therapist: Ysabel Espinal Therapist's Time of Therapist Appointment: Will follow up with you to schedule an intake Therapy Appointment Comment: [facility], [address] Solar Energy Specialist Name of Solar Energy Specialist: Student Care [facility] Advocacy - Dayna Lisa Phone Number for Solar Energy Specialist: [phone] Date of Appointment with Solar Energy Specialist: 11/08/19 Time of Appointment with Solar Energy Specialist: 12:00 p.m. Case Management Appointment Comment: Dayna will email you call in information Post Discharge Appointments Primary Care Physician Name Of Family Doctor: AMY BURDEN Primary Care Time of Appointment with PCP: Please follow up as needed Provider Appointment Comment: [place] [address] Smoking Cessation Counseling Tobacco Cessation Medication Prescribed at Discharge: Not Applicable/Non-Smoker Other #1: Name of Aftercare Appointment: RAFIQ Sorensen Phone Number of Aftercare Appointment: [phone] Aftercare Appointment Comment: Please follow up when you are re-enrolled in classes Contact Information Discharge Discharge Address: [address] [place] [address] Discharge Plan Discharge Items Patient Disposition: Home - Self-Care Reason For Visit: BIPOLAR DISORDER, PSYCHOSIS Discharge Diagnosis: schizoaffective disorder, bipolar type Activity: Resume your previous activity Non-emergency contact: Primary Care Provider and Psychiatrist Call non-emergency contact if: you have any medication questions and your symptoms worsen Follow-up/Referrals: [facility] [Primary Care Provider] - Diet: Regular Addtl Attending Provider Instructions: SPECIAL CARE INSTRUCTIONS: 1. Follow through with your scheduled aftercare appointments. If unable to keep an appointment, please call to reschedule. 2. Take your medication only as prescribed. Medication should not be changed or stopped without the approval of your doctor. In the event of worsening symptoms or concerns about side effects, contact your doctor immediately. 3. Utilize new healthy coping skills, anger management skills, and stress management skills learned during your hospitalization. Journal feelings and process them with a support person. Identify stressors or situations that may result in relapse, deterioration or inappropriate behaviors and develop a plan to deal with those issues. 4. If your coping skills are ineffective and you are in crisis, contact your outpatient providers for direction. If unable to reach your providers, please call the CAN HELP LINE AT or go to the closest Emergency Room. 5. Avoid alcohol and un-prescribed drugs. 6. You have been provided with the Mental Health Advance Directives Pamphlet for your review. AFTERCARE APPOINTMENTS: * Please call your insurance company prior to your scheduled appointment to confirm your aftercare providers are covered. Take your insurance information to your appointments. WHO TO CALL AND WHEN: Medical Emergencies: For questions or emergencies related to your hospital stay, please contact the Inpatient Behavioral Health Unit at [phone]. A radio assembler is on-call 23/11 for the Behavioral Health Unit for emergencies At any time you feel your situation is an emergency, you may also call 911 immediately. Your Doctors Instructions noted above were prepared by provider Darlene Joiner MD. Pending Studies at Discharge: No Stand-Alone Forms: [facility], Smoking Cessation, Suicide Prevention Resources Medications and DC Order Prescriptions: New clonazepam 0.5 mg Tablet 0.5 mg PO HS PRN (Reason: Anxiety) Qty: 10 RF: 0 lithium carbonate 450 mg Tablet Extended Release 450 mg PO BID Qty: 30 RF: 0 Invega Sustenna 117 mg/0.75 mL syringe 117 mg IM Q30D Qty: 0.75 RF: 0 Discontinued lithium carbonate 300 mg Capsule 300 mg PO BID RF: 0 risperidone 1 mg Tablet 1 mg PO BID RF: 0 Discharge Orders: Discharge Order (Routine); Ordered 11/06/19 Ordered By: Darlene Joiner Admission Data Admit Date/Time: 10/21/19 23:15 Attending Provider: Ariela Jackson Admit Provider: Barb Root Primary Care Provider: [facility] Other Interventions: PSY Interdisciplinary Discharge Planning Last Done: 11/06/19 11:06 Coding Level of Care Code 61190 D/C day mgmt > 30 min Diagnoses Schizoaffective disorder, bipolar type F25.0 Nicotine dependence F17.200
== END 2019-11-06 12:20 | disposition home or self-care (01) | DRG 885 ==
LOC: MERGE 18:05 → ED 18:05 → SUATTDRO 23:15 → 3S 23:15

== ENCOUNTER 2020-07-13 14:40 | Inpatient (IN) ==
[2020-07-13] MEDS ORDERED: HALOPERIDOL LACTATE 5 MG/ML 1 ML VIAL IM STA (15:16)
[2020-07-13] MEDS ORDERED: diphenhydrAMINE 50 MG/ML VIAL IM STA (15:16)
[2020-07-13] MEDS ORDERED: LORazepam 2 MG/ML VIAL (IM USE) IM STA (15:16)
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
[2020-07-13 15:30] LABS: Appearance Urine Clear (Clear); Bilirubin Urine Negative (Negative); Blood Urine Negative (Negative); Color Urine Yellow; Glucose Urine UA Negative (Negative); Ketones Urine Negative (Negative); Leukocyte Esterase Urine Negative (Negative); Nitrite Urine Negative (Negative); Protein Urine Negative (Negative); Specific Gravity Urine 1.009 (1.000-1.030); Urobilinogen Urine Negative (Negative); pH Urine 6.5 (4.5-7.5)
[2020-07-13 15:44] LABS: Basophils # (auto) 0.02 K/uL (0-0.2); Basophils % (auto) 0.2 %; Eosinophils # (auto) 0.06 K/uL (0-0.5); Eosinophils % (auto) 0.6 %; Hematocrit (blood only) 41.5 % (42-52); Hemoglobin 14.3 g/dL (14.0-18.0); Immature Granulocytes # (auto) 0.05 K/uL (0.00-0.02); Immature Granulocytes % (auto) 0.5 %; Lymphocytes # (auto) 3.36 K/uL (1.2-3.4); Lymphocytes % (auto) 32.9 %; Mean Corpuscular Hemoglobin 29.9 pg (25-34); Mean Corpuscular Hgb Conc 34.5 g/dL (32-36); Mean Corpuscular Volume 86.6 fL (80-100); Mean Platelet Volume 10.1 fL (7.4-10.4); Monocytes # (auto) 0.58 K/uL (0.11-0.59); Monocytes % (auto) 5.7 %; Neutrophils # (auto) 6.14 K/uL (1.4-6.5); Neutrophils % (auto) 60.1 %; Platelet Count 320 K/uL (130-400); RDW Coefficient of Variation 12.6 % (11.5-14.5); RDW Standard Deviation 40.6 fL (36.4-46.3); Red Blood Count 4.79 M/uL (4.7-6.1); White Blood Count 10.21 K/uL (4.8-10.8)
[2020-07-13 16:01] LABS: Albumin Level 4.7 gm/dl (3.4-5.0); BUN Creatinine Ratio 13.3 (10-20); Calcium 9.6 mg/dl (8.5-10.1); Creatinine Clr Calc Pharmacy 100.3 ml/min; Est GFR (African American) 123.5; Est GFR (Non-African American) 106.6; Potassium 3.5 mmol/L (3.5-5.1)
[2020-07-13 16:05] LABS: Amphetamines+Metham, Urine Neg (Neg); Barbiturates, Urine Neg (Neg); Benzodiazepine, Urine Neg (Neg); Cocaine, Urine Pos (Neg); MDMA (Ecstacy), Urine Neg (Neg); Methadone, Urine Neg (Neg); Opiate, Urine Neg (Neg); Phencyclidine, Urine Neg (Neg)
[2020-07-13 16:11] LABS: Albumin Globulin Ratio 1.2 (0.9-2); Bilirubin,Total 0.3 mg/dl (0.2-1); Thyroid Stimulating Hormone 0.668 uIu/ml (0.300-4.500); Total Protein 8.7 gm/dl (6.4-8.2)
[2020-07-13 16:18] LABS: Acetaminophen < 2 ug/ml (10-30); Lithium < 0.2 mmol/L (0.6-1.2); Salicylate 2.7 mg/dl (2.8-20)
[2020-07-13] MEDS ORDERED: HALOPERIDOL LACTATE 5 MG/ML 1 ML VIAL ONE (19:56)
[2020-07-13] MEDS ORDERED: LORazepam 2 MG/ML VIAL (IM USE) ONE (19:57)
--- NOTE | 2020-07-14 00:01 | Emergency Department Note ---
ED Visit Note ED Physician Sign Out Note: 25 yr old male with schizophrenia/bipolar arrived earlier in manic episode s/p bizarre behaviors with wish to harm others. Medically cleared and [address] Qureshi who signed him out to me pending psychiatric placement. Patient sleeping throughout night without issue until am when he awoke requested ni cotine patch. Patient evaluated and is a bit manic with tangential thought, though he is not aggressive and is following commands. He declines any medications and I do not see need to chemically sedate at this time. He states he does not take the [place] that is documented in the chart and thus not ordered for am. He was signed out to Dr Kamara. Morales Cardoza MD
[2020-07-14] MEDS ORDERED: NICOTINE 21 MG/24 HR TDSY TD STA (06:02)
[2020-07-14] MEDS ORDERED: LORazepam 1 MG TAB PO STA (08:34)
--- NOTE | 2020-07-14 08:37 | Emergency Department Note ---
ED Visit Note I received this patient at change of shift signout from Dr. Cardoza. Please see his note for overnight care. The patient presented to the emergency department for a mental health evaluation. He was a 302 which was upheld after the patient was medically cleared. At this time bed search is underway. The patient was ordered some Ativan by myself. Disposition is pending. 1110: At this time I was asked to reevaluate the patient because he is becoming exceedingly more aggressive against the nursing staff. Security is at the bedside. At this time I will give the patient sedation for patient safety as well as staff safety. The patient is still being evaluated by crisis for placement. She has called multiple facilities and still no luck in having the patient placed Patient was signed out to Dr. Qureshi at change of shift. Please see his note for continuation of care and further disposition .
[2020-07-14] MEDS ORDERED: HALOPERIDOL LACTATE 5 MG/ML 1 ML VIAL IM STA ×2 (11:10→19:54)
[2020-07-14] MEDS ORDERED: LORazepam 2 MG/ML VIAL (IM USE) IM STA ×2 (11:10→19:54)
[2020-07-14] MEDS: NICOTINE 14 MG/24 HR PATCH TD SCH (12:09)
--- NOTE | 2020-07-14 12:35 | Electrocardiogram Report ---
Test Reason : Blood Pressure : / mmHG Vent. Rate : 109 BPM Atrial Rate : 109 BPM P-R Int : 118 ms QRS Dur : 090 ms QT Int : 322 ms P-R-T Axes : 070 061 062 degrees QTc Int : 433 ms Sinus tachycardia Otherwise normal ECG When compared with ECG of 07-JAN-2020 20:06, No significant change was found Confirmed by Reji Valenzuela ([id number]) on 07/14/2020 12:34:40 PM Referred By: REFERRED SELF Confirmed By:Reji Valenzuela
[2020-07-14] MEDS ORDERED: NICOTINE POLACRILEX 2 MG GUM MT ONE ×2 (17:42→19:28)
[2020-07-14] MEDS: QUEtiapine FUMARATE 100 MG TABLET PO SCH ×2 (18:05→22:57)
[2020-07-14] MEDS ORDERED: diphenhydrAMINE 50 MG/ML VIAL IM STA (19:54)
--- NOTE | 2020-07-14 22:49 | Emergency Department Note ---
ED Visit Note ED Physician Sign Out Note: 25 yr old male with schizophrenia/bipolar known to me from last evening. Signed out to me 10:45pm on 07/14/20 still awaiting placement. Did receive further Haldol/Ativan earlier in evening due to agitation. On my evaluation on signout he is sleeping and no distress. Around 5:30am patient becoming more animated and active, pushing buttons in room, and pacing. Discussed meds and he is only willing to take PO Abilify. This seems reasonable and thus 10mg PO Abilify ordered for treatment of agitation in bipolar patient. Patient then willing to take Ativan 2mg PO. Signed out to Dr Laws pending placement. Morales Cardoza MD
--- NOTE | 2020-07-14 22:58 | Emergency Department Note ---
ED Visit Note Case signed out to me by Dr. Booth. Patient still awaiting psychiatric bed placement. During my time watching the patient, patient came agitated toward nursing required sedation with Haldol 5 mg IM, Ativan 2 mg IM, and Benadryl 50 mg IM. Case signed out to Dr. Cardoza at this time still awaiting psychiatric bed placement. .
[2020-07-15] MEDS ORDERED: ARIPiprazole 10 MG TAB PO STA (05:21)
[2020-07-15] MEDS ORDERED: LORazepam 1 MG TAB PO STA ×2 (06:14→10:15)
--- NOTE | 2020-07-15 07:51 | Emergency Department Note ---
ED Visit Note This patient was signed out to me by Dr. Cardoza at shift change. The patient had been medicated with Abilify and Ativan. When I go back to check him he was walking around but was not violent or uncooperative. We did consult 3 S. to see him for medication recommendations. The patient does seem to be getting more agitated and he did agree to take Ativan 2 mg p.o. Despite this he continued to walk around outside the room and made threatening gestures to the nurses and staff. We did redirect him to his room but he does seem to be escalating. In light of this I did order Haldol 5 mg IM, Benadryl 50 mg IM and Ativan 1 mg IM for additional sedation/chemical restraint. Security did have to be called prior to this as he was getting more agitated. This was felt necessary for the safety of the patient as well as the staff. He kept talking about leaving as well. With the medication the patient did slightly calm down but continued to be awake and alert. He seems less agitated however started become more agitated again and did require another dose of Haldol 5 mg IM and Ativan 2 mg IM this was done about 2 hours after the first. He is still awake with this after reassessing him but he seems sleepy and certainly at this point is not a danger to himself or others. The patient will be signed out to Dr. Booth at shift change at 3 PM. .
[2020-07-15] MEDS: NICOTINE POLACRILEX 2 MG GUM MT PRN ×8 (08:08→23:01)
[2020-07-15] MEDS: QUEtiapine FUMARATE 100 MG TABLET PO SCH ×2 (08:08→20:14)
[2020-07-15] MEDS: NICOTINE 14 MG/24 HR PATCH TD SCH (08:08)
[2020-07-15] MEDS ORDERED: HALOPERIDOL LACTATE 5 MG/ML 1 ML VIAL IM STA ×2 (11:03→13:08)
[2020-07-15] MEDS ORDERED: LORazepam 2 MG/ML VIAL (IM USE) IM STA ×2 (11:03→13:08)
[2020-07-15] MEDS ORDERED: diphenhydrAMINE 50 MG/ML VIAL IM STA (11:04)
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
--- NOTE | 2020-07-15 16:13 | Emergency Department Note ---
ED Visit Note I assumed care at the change of shift. Dr. Laws had been the physician just prior to me. We were waiting for bed placement. The patient is under a 302 warrant. He has required sedation here in the ED. Patient voluntarily took his typical dose of oral Seroquel. He was also given 5 mg of oral Haldol and 1 mg oral Ativan. He did fairly well with this medication. The patient is currently cooperative. He is awake and at times talking with staff. The bed search continues. The patient's care is being assumed by Dr. Foote at the change of shift. .
[2020-07-15] MEDS ORDERED: NICOTINE POLACRILEX 2 MG GUM MT PRN (16:26)
[2020-07-15] MEDS: NICOTINE 21 MG/24 HR TDSY TD STA ×2 (16:38→18:48)
[2020-07-15] MEDS ORDERED: LORazepam 1 MG TAB SL STA (19:55)
[2020-07-15] MEDS ORDERED: haloperidoL 5 MG TAB PO STA (19:55)
--- NOTE | 2020-07-15 23:26 | Emergency Department Note ---
ED Visit Note This case was signed out to me at change of shift. He is here on a 302. The patient is sitting outside of his room talking to nursing staff. He is cooperative at this time. The patient did sleep for period of time but is back up again and remains cooperative. His bed search has been suspended and will resume again this morning. Case will be signed out to Dr. Laws at change of shift. .
[2020-07-16] MEDS: NICOTINE POLACRILEX 2 MG GUM MT PRN ×5 (00:28→18:39)
[2020-07-16] MEDS ORDERED: LORazepam 1 MG TAB ONE (06:46)
[2020-07-16] MEDS: QUEtiapine FUMARATE 100 MG TABLET PO SCH (08:03)
[2020-07-16] MEDS ORDERED: LORazepam 1 MG TAB PO STA ×3 (08:25→18:14)
[2020-07-16] MEDS ORDERED: haloperidoL 5 MG TAB PO ONE ×2 (08:25→18:14)
--- NOTE | 2020-07-16 09:12 | Emergency Department Note ---
ED Visit Note This patient was signed out to me at shift change by Dr. Foote. The patient has been here for a prolonged time and received multiple dosages of antipsychotics and benzodiazepines for agitation. He is in a 302 commitment. There was a documented note from the psychiatrist in the chart yesterday recommended we continue the Seroquel which he did receive and to use Haldol or other medications as needed. The nurse called me and said he was becoming more agitated so I gave him Haldol 5 mg p.o. and Ativan 2 mg p.o. he is willing to take the medication p.o. with his medications he would calm down but never really go to sleep much. He will likely need further medications. He will be signed out to Dr. Mustafa at shift change at 3 PM .
[2020-07-16] MEDS ORDERED: haloperidoL 5 MG TAB PO STA (12:52)
--- NOTE | 2020-07-16 14:58 | Emergency Department Note ---
ED Visit Note Received this patient in signout. Here is on an involuntary mental health commitment at this time. Required multiple doses of medications over the last several days for control of his underlying psychosis and behavior. Patient been ambulatory in the mental health area and making bizarre statements. Recommended by psychiatry from upstairs for Seroquel standing which has been ordered. Bed search in progress. Patient later slightly escalated some and was given additional Haldol and Ativan PO. Patient was accepted by 3 S. will be transferr ed there for further inpatient psychiatric care on a 302. .
[2020-07-16] MEDS ORDERED: ALUMINUM/MAGNESIUM SUSP 30 ML UDC PO PRN (18:58)
[2020-07-16] MEDS ORDERED: MAGNESIUM HYDROXIDE SUSP 30 ML UDC PO PRN (18:58)
[2020-07-16] MEDS ORDERED: BISMUTH SUBSALICYLATE LIQD 236 ML PO PRN (18:58)
[2020-07-16] MEDS ORDERED: SODIUM CHLORIDE 0.65% NA SOLN 45 ML (OCEAN) PRN (18:58)
[2020-07-16] MEDS ORDERED: hydrOXYzine HCl 25 MG TAB PO PRN ×2 (18:58)
[2020-07-16] MEDS ORDERED: haloperidoL 5 MG TAB PO PRN (19:06)
[2020-07-16] MEDS ORDERED: HALOPERIDOL LACTATE 5 MG/ML 1 ML VIAL IM PRN (19:08)
[2020-07-16] MEDS ORDERED: LORazepam 2 MG/ML VIAL (IM USE) IM PRN (19:08)
[2020-07-16] MEDS: haloperidoL 5 MG TAB PO SCH (21:00)
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
[2020-07-17] MEDS: haloperidoL 5 MG TAB PO SCH ×2 (08:24→20:35)
[2020-07-17] MEDS: NICOTINE POLACRILEX 2 MG GUM MT PRN ×7 (08:25→19:02)
[2020-07-17 11:51] LABS: Cocaine, Urine 441 ng/mL (<100); Marijuana Quant, GCMS Urine 187 ng/mL (<5)
[2020-07-17] MEDS: NICOTINE 14 MG/24 HR PATCH TD SCH (14:46)
[2020-07-17] MEDS: ACETAMINOPHEN 325 MG TAB PO PRN (19:03)
[2020-07-17] MEDS: LORazepam 1 MG TAB PO PRN (20:35)
[2020-07-18] MEDS: NICOTINE POLACRILEX 2 MG GUM MT PRN ×7 (07:01→19:41)
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
[2020-07-18] MEDS: haloperidoL 5 MG TAB PO SCH ×2 (09:06→21:14)
[2020-07-18] MEDS: NICOTINE 14 MG/24 HR PATCH TD SCH (09:06)
[2020-07-18] MEDS: LORazepam 1 MG TAB PO PRN ×2 (11:10→21:15)
[2020-07-18] MEDS: ACETAMINOPHEN 325 MG TAB PO PRN (11:49)
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
[2020-07-19] MEDS: NICOTINE POLACRILEX 2 MG GUM MT PRN ×5 (09:11→17:20)
[2020-07-19] MEDS: haloperidoL 5 MG TAB PO SCH ×2 (09:11→20:47)
[2020-07-19] MEDS: NICOTINE 14 MG/24 HR PATCH TD SCH (09:12)
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
[2020-07-20] MEDS: ESCITALOPRAM OXALATE 10 MG TAB PO SCH (08:08)
[2020-07-20] MEDS: haloperidoL 5 MG TAB PO SCH ×2 (08:08→20:07)
[2020-07-20] MEDS: NICOTINE 14 MG/24 HR PATCH TD SCH (08:10)
[2020-07-20] MEDS: NICOTINE POLACRILEX 2 MG GUM MT PRN ×4 (08:27→16:43)
[2020-07-20] MEDS: LORazepam 1 MG TAB PO PRN (11:38)
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
[2020-07-21] MEDS: NICOTINE POLACRILEX 2 MG GUM MT PRN ×3 (07:40→11:25)
[2020-07-21] MEDS: ESCITALOPRAM OXALATE 10 MG TAB PO SCH (08:35)
[2020-07-21] MEDS: haloperidoL 5 MG TAB PO SCH ×2 (08:35→21:36)
[2020-07-21] MEDS: NICOTINE 14 MG/24 HR PATCH TD SCH (08:36)
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
[2020-07-21] MEDS: LORazepam 1 MG TAB PO PRN (12:27)
[2020-07-22] MEDS: ESCITALOPRAM OXALATE 10 MG TAB PO SCH (08:03)
[2020-07-22] MEDS: haloperidoL 5 MG TAB PO SCH ×2 (08:03→20:35)
[2020-07-22] MEDS: NICOTINE POLACRILEX 2 MG GUM MT PRN ×3 (08:04→10:42)
[2020-07-22] MEDS: NICOTINE 14 MG/24 HR PATCH TD SCH (08:08)
[2020-07-22] MEDS: LORazepam 1 MG TAB PO PRN (11:15)
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
[2020-07-23] MEDS: NICOTINE POLACRILEX 2 MG GUM MT PRN ×3 (07:46→14:06)
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
[2020-07-23] MEDS: haloperidoL 5 MG TAB PO SCH ×2 (08:45→21:06)
[2020-07-23] MEDS: ESCITALOPRAM OXALATE 10 MG TAB PO SCH (08:46)
[2020-07-23] MEDS: NICOTINE 14 MG/24 HR PATCH TD SCH (08:49)
[2020-07-23] MEDS: LORazepam 1 MG TAB PO PRN (11:00)
[2020-07-24] MEDS: NICOTINE POLACRILEX 2 MG GUM MT PRN ×4 (07:46→15:38)
--- NOTE | 2020-07-24 08:34 | Psychiatric Progress Note ---
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 Patient lacks insight and appears to have an unfortunate combination of mood and psychotic symptoms, substance abuse, and narcissistic and antisocial personality qualities. He has been nonadherent with outpatient treatment, abusing cannabis and cocaine, violent and threatening others, and as a result is now homeless, has criminal charges, is unemployed with no income, little support, and is estranged from family. His psychotic symptoms are responding to Haldol and he is now agreeing to transition to Haldol Decanoate. Inpatient treatment is medically necessary due to the severity of symptoms and risk for harm to both himself and others as a result of his provocative, threatening, and aggressive behavior. (1) Behavior disturbance: 07/17 -appears to be multifactorial, results of schizoaffective disorder, substance abuse, and antisocial personality traits. Patient has history of multiple arrests, does not believe that the laws or rules apply to him and this has been consistent throughout his many hospitalizations here, lacks remorse, and uses threats of manipulation as a way to get what he wants from others. He demonstrates irritability and aggressiveness, impulsivity and failure to plan ahead, and reckless disregard for the safety of himself and others. He also demonstrates consistent irresponsibility as indicated by failure to sustain consistent worker on her financial obligations, all of which indicate ASPD. -Continue 302 involuntary commitment, every 15 minute checks for safety. -Medically necessary private room due to agitation and violent behavior. Patient has been informed that threatening and aggressive behavior will not be excepted, and that he could face criminal charges for this. He does appear to be aware of his behavior and he is using threats of aggression to get what he wants. -Elopement precautions. 07/18 -continue to provide redirection and remind patient of interpersonal boundaries and expectations for appropriate behavior, not threatening or assaulting others. -Continue elopement precautions and private room. -I do believe there is an antisocial component to the patient's behavior and presentation, in addition to his schizoaffective disorder. He does have awareness of his behavior, and freely admits that he uses threats to manipulate others. 07/19 -The patient continues to have difficulty understanding why people cannot understand that when he makes a threat of causing serious physical harm to the person or property of others that he is "only kidding." He continues to insist that they should somehow know that he is "only kidding," even after its been pointed out to him that he is followed through on some of these threats and that people cannot possibly know which threat is real and which is not. -The patient presents with symptoms that are consistent with higher functioning autism spectrum disorder with deficits in social intelligence, information processing, socialemotional reciprocity, difficulty maintaining and understanding relationships, and avoidance of eye contact. 07/20--reviewed. continue MNPR and elopement precautions. 07/22--unchanged, Plan: continue current meds and treatment plan. 07/23 -discharge planning meeting scheduled with [facility] for tomorrow. 07/24 -has been under better behavioral control here, is not threatening others. (2) Schizoaffective disorder, bipolar type: 07/17 -diagnosed during most recent hospitalization here in 10/21/2019, prior to that was diagnosed with bipolar type I. Presentation is complicated by his persistent substance abuse, with chronic cannabis use, and now cocaine as well. -Patient is endorsing delusions of persecution, and demonstrates disorganized thought process. He showed some response to haloperidol in the ER, and will continue 10 mg twice daily with 5 mg as needed dose while gathering additional information about his recent hospitalizations. -Patient initially refused to sign ROIs to obtain records, but has now agreed to sign a release for [facility] hospitalization. He claims he has no current outpatient treatment in place. -File for 303 involuntary commitment with hearing to be held tomorrow. Anticipate that he will require [facility] and [facility] referral for long-term inpatient treatment, given his inability to maintain stability or function appropriately in the community for the past 8 months, at least 5 hospitalizations, lack of insight, homelessness, lack of supports/employment/income, health insurance, and ongoing risk to the community given his violent and threatening behavior. 07/18 -now on a 303 involuntary commitment. Continue current medications, gather information toward the need for ongoing involuntary commitment and state hospital referral. -Case complex this patient has no insurance, is not a citizen, may be in the country illegally, and even if he were willing for outpatient treatment (which she is not), would not be able to access it. We have requested a meeting with [facility] to explore options. 07/19 -The patient did agree to apply for temporary medical assistance as an involuntary civil commitment. This change may represent increased trust in the members of the treatment team. -He is willing to acknowledge that he suffers from depression. He started crying when talking about his father's recent , and sobbed each time he tried to tell me about his father and what his father admits to him. 07/20--reviewed. continue current meds and tx plan. 07/23 -currently on Haldol 10 mg twice daily, plan is to transition to Haldol Decanoate prior to discharge. Continue Escitalopram 10 mg daily (started 07/20/2020 for depression). 07/24 -Treatment planning meeting: [facility], [facility] for therapy and psychiatry, and file for 304 (initially inpatient, to convert [facility] at d/c). Kathleen Harrison will meet with him 07/25. -Patient agreed to transition to Haldol Decanoate, current daily dose is 20 mg, so he will require 200-400 mg decanoate. We will start with the initial loading dose of 100 mg today, and the second 100 mg dose in 3 days. (3) Nonadherence to medication: 07/17 -patient was discharged from our unit on [facility] after his last hospitalization, and recommend return to an [facility] given his chronic nonadherence with treatment and lack of insight. 07/19 -The patient insists that he does not have a mental illness, other than "some depression," and he does not feel that he needs to be followed on an outpatient basis by mental health professional, as long as he can be prescribed Lexapro. 07/20--agreed superficially to injectable Haldol today, need to confirm a prescriber/means to pay. (4) Cannabis abuse: 07/17 -patient has consistently presented with drug screens positive for cannabis, and reports smoking 2-3 joints daily. This is likely worsening his mood and psychotic symptoms. He lacks any insight into the role his substance use plays, and is unable to engage in motivational interviewing or discussion of the risks of ongoing substance abuse. -Avoid prescription of controlled substances given the high risk of misuse/abuse/negative outcomes. 07/19 -The patient acknowledges that the use of cocaine, marijuana, and alcohol all lower his impulse control and he is more apt to make threats that he describes as "just kidding" when under the influence of these chemical substances. Yet he cannot seem to connect the fact that he has been hospitalized involuntarily because of the threats, and, therefore, that he needs to stop using the substances. Instead, he says "they help me relax. They are good for me. They do not cause any problem." (As above, the patient externalizes responsibility for his predicament by saying that it is simply a function of the fact that other people do not understand that he expresses himself by making threats without intent to follow through on them. More specifically, he thinks that other people ought to be able to tell when he is kidding and when he is not, and he cannot connect the fact that he sometimes does follow through on the threats with the reality that people that he encounters feel compelled to take him seriously. 07/20--reviewed. (5) Cocaine abuse: 07/17 -UDS + cocaine, and patient also reported cocaine use during ER visit in 2019. 07/19 -The patient acknowledges that the use of cocaine, marijuana, and alcohol all lower his impulse control and he is more apt to make threats that he describes as "just kidding" when under the influence of these chemical substances. Yet he cannot seem to connect the fact that he has been hospitalized involuntarily because of the threats, and, therefore, that he needs to stop using the substances. Instead, he says "they help me relax. They are good for me. They do not cause any problem." (As above, the patient externalizes responsibility for his predicament by saying that it is simply a function of the fact that other people do not understand that he expresses himself by making threats without intent to follow through on them. More specifically, he thinks that other people ought to be able to tell when he is kidding and when he is not, and he cannot connect the fact that he sometimes does follow through on the threats with the reality that people that he encounters feel compelled to take him seriously. 07/20--reviewed. Patient is refusing to engage in any discussion or counseling around his substance abuse as says it's his right. (6) Nicotine dependence: 07/17 -offer patch/gum for nicotine replacement. 07/20--reviewed. Risk Factors Assessment Male: Yes : No Do You Have Access To A Gun?: No Health Problems: No Mental Health Diagnoses: Yes Substance Use Disorders: Yes Previous Attempt: Yes Previous Psychiatric Hospitalization: Yes Hopelessness: No Smoker: Yes Protective Factors Assessment Episcopal Beliefs: No : No Responsible for Young Children: No Employed: No Stable Relationships: No Supportive Family: No Good Rapport with Provider: No Interval History Identifying Information ZAY MOMIN is a 25-year-old M who currently lives in [place], has a history of schizoaffective disorder bipolar type and treatment nonadherence, and was admitted on 07/16/20 18:59 on a 302 involuntary commitment for erratic and unsafe behavior, disorganized thoughts, physical aggression towards others, and threats to harm others. He is on a 303 involuntary commitment as of 07/18/2020. Chief Complaint "I just want to get out of here". Review of Systems Sleep Information Total Hours of Sleep: 8 Sleep Comments: pt on q-15 minute checks Meal Information Percent Meal Consumed - Breakfast: 90 Percent Meal Consumed - Lunch: 100 Percent Meal Consumed - Dinner: 0 Nutrition Comment: pt. ate 100% of meal after waking Subjective Subjective Patient was seen & assessed and interval progress reviewed with treatment team. Staff report he was in bed most of the day yesterday, got prn Ativan, was excused from all groups. He did ask staff to help him call his mother in [place], but was unable to reach her yesterday. He was able to call her this morning, although would not allow staff to talk with her. He continues to report that he is "fine" and does not need to be here. I saw him multiple times, individually and also with the health and social care teacher. We reviewed the information obtained in the meeting with [facility], including that they will pay for his outpatient treatment and medication as long as he is under a 304 IOC. Reviewed his treatment thus far, that he has not been willing to work on a discharge plan and currently has no outpatient care in place, but that we will be filing for 304 involuntary commitment hearing to be held in the next few days. Reviewed different options including diversion to outpatient involuntary commitment, and reviewed what this would entail. He said he will agree to any recommendations as long as it means he can be discharged, and repeatedly pleaded to be discharged rapidly. He continues to state there is no reason for him to be here, and takes no responsibility for his situation. He repeatedly interrupted when attempting to explain the 304 to him, initially talking about a doctor he saw during a previous hospitalization in which medications that the doctor there started, as well as the recommendation to get the injection monthly, which she admits he did not do after discharge. He interrupted again later to say that he was "converting to Protestant and claiming christian persecution." Reviewed his recent history, with numerous hospitalizations, and that he had never continued with medications or followed up with outpatient treatment after discharge, which she admits is true. He says this was in part due to lack of insurance or money to pay for treatment, and is willing to work with the [facility] to get outpatient services. Reviewed the plan for the next couple of days, including the 304 hearing, meeting with staff from the [facility] tomorrow for his case management intake, and referring him for outpatient mental health services in the community. He indicated willingness to cooperate with these things. Also discussed transitioning him from oral Haldol to the long-acting injectable version, which he agreed to start today. Informed him this would be given in 2 injections, the initial one today, and the second in the next 3-7 days. Treatment planning meeting held with [facility] re: need for funding for outpatient treatment, possibility of state hospital referral, pattern of noncompliance with outpatient treatment and meds and numerous recent hospitalizations. They clarified the [facility] will fund outpatient treatment as long as he is on a 304 IOC. They advised referral for [facility] for psychiatry/IOC, and for BCM. They said forensic correctional counselor/case manager Jojo had called in and spoke to him last week and he declined all services. Physical Exam Psychiatric Orientation: alert and cooperative (Partially, but frequently interrupts, argumentative) Apperance: + disheveled; + inappropriately dressed Dressed in the same clothes he has been wearing for days, scrub pants and a pullover shirt. Hair is tangled, appears unwashed, unkempt Eye Contact: + fair eye contact Motor Behavior: steady gait and station and no abnormal motor movements Talks with an accent, at times Affect: + irritable affect; + mood not congruent with affect "I am fine." "You are making me worse by being here." Goal-directed at times, other times disorganized, answering with unrelated information, tangential. Thought Content: + persecution Suicidal Thoughts: denies suicidal thoughts Homicidal Thoughts: denies homicidal thoughts Hallucinations: no auditory hallucinations Cognition: + recent memory not intact (Did not remember discussion of 304, repeated information several times.) Insight: + severely impaired insight Judgement: + severely impaired judgement Vital Signs (Past 24 Hours) Last Vital Signs Temp 36.6 C 07/24/20 06:52 Pulse 87 07/24/20 06:52 Resp 16 07/24/20 06:52 BP 104/68 07/24/20 06:52 Pulse Ox 98 07/16/20 19:00 Results & Data ([facility]) Current Inpatient Medications Current Inpatient Medications: Current Inpatient Medications Acetaminophen (Acetaminophen 325 Mg Tab) 650 mg PO Q4H PRN PRN Reason: Headache or Minor Fever Stop: 08/15/20 18:57 Last Admin: 07/18/20 11:49 Dose: 650 mg Documented by: Al Hydrox/Mg Hydrox/Simethicone (Aluminum/Magnesium Susp 30 Ml Udc) 30 ml PO Q4H PRN PRN Reason: GI Upset Stop: 08/15/20 18:57 Bismuth Subsalicylate (Bismuth Subsalicylate Liqd 236 Ml) 15 ml PO PRN PRN PRN Reason: Loose Stool Stop: 08/15/20 18:57 Escitalopram Oxalate (Escitalopram Oxalate 10 Mg Tab) 10 mg PO QAM JANET Stop: 08/19/20 08:59 Last Admin: 07/23/20 08:46 Dose: 10 mg Documented by: Haloperidol (Haloperidol 5 Mg Tab) 10 mg PO BID JANET Stop: 08/15/20 20:59 Last Admin: 07/23/20 21:06 Dose: 10 mg Documented by: Haloperidol (Haloperidol 5 Mg Tab) 5 mg PO Q4H PRN PRN Reason: psychosis/agitation Stop: 08/15/20 19:05 Last Admin: 07/18/20 11:10 Dose: 5 mg Documented by: Haloperidol Lactate (Haloperidol Lactate 5 Mg/Ml 1 Ml Vial) 5 mg IM Q4H PRN PRN Reason: acute agitation Stop: 08/15/20 19:07 Hydroxyzine HCl (Hydroxyzine Hcl 25 Mg Tab) 50 mg PO HSZ PRN PRN Reason: Insomnia Stop: 08/15/20 18:57 Hydroxyzine HCl (Hydroxyzine Hcl 25 Mg Tab) 25 mg PO Q4H PRN PRN Reason: Anxiety Stop: 08/15/20 18:57 Lorazepam (Lorazepam 1 Mg Tab) 1 mg PO Q4H PRN PRN Reason: agitation/psychosis Stop: 08/15/20 19:06 Last Admin: 07/23/20 11:00 Dose: 1 mg Documented by: Lorazepam (Lorazepam 2 Mg/Ml Vial (Im Use)) 2 mg IM Q4H PRN PRN Reason: acute agitation Stop: 08/15/20 19:07 Magnesium Hydroxide (Magnesium Hydroxide Susp 30 Ml Udc) 30 ml PO DAILY PRN PRN Reason: Constipation Stop: 08/15/20 18:57 Miscellaneous (Remove Nicoderm Patch) 1 ea N/A 0859 [facility] Stop: 08/16/20 08:58 Last Admin: 07/23/20 08:48 Dose: Not Given Documented by: Nicotine (Nicotine 14 Mg/24 Hr Patch) 14 mg TD QAM [facility] Stop: 08/16/20 08:59 Last Admin: 07/23/20 08:49 Dose: Not Given Documented by: Nicotine Polacrilex (Nicotine Polacrilex 2 Mg Gum) 1 piece MT Q1H PRN PRN Reason: nicotine cravings Stop: 08/17/20 15:38 Last Admin: 07/24/20 07:46 Dose: 1 piece Documented by: Sodium Chloride (Sodium Chloride 0.65% Na Soln 45 Ml ([place])) 1 - 2 sprays NA PRN PRN PRN Reason: Nasal Dryness/Congestion Stop: 08/15/20 18:57 Mental Health & Subst Abuse Tx Therapist Name of Therapist: No therapist
[2020-07-24] MEDS: ESCITALOPRAM OXALATE 10 MG TAB PO SCH (09:32)
[2020-07-24] MEDS: haloperidoL 5 MG TAB PO SCH ×2 (09:32→20:34)
[2020-07-24] MEDS: NICOTINE 14 MG/24 HR PATCH TD SCH (10:13)
[2020-07-24] MEDS ORDERED: HALOPERIDOL DECANOATE INJ 50 MG/ML VIAL IM ONE (11:26)
[2020-07-24] MEDS: LORazepam 1 MG TAB PO PRN (11:32)
[2020-07-25] MEDS: NICOTINE POLACRILEX 2 MG GUM MT PRN ×4 (07:56→14:45)
[2020-07-25] MEDS: ESCITALOPRAM OXALATE 10 MG TAB PO SCH (08:55)
[2020-07-25] MEDS: haloperidoL 5 MG TAB PO SCH ×2 (08:55→20:48)
[2020-07-25] MEDS: NICOTINE 14 MG/24 HR PATCH TD SCH (08:56)
--- NOTE | 2020-07-25 13:17 | Psychiatric Progress Note ---
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 Patient lacks insight and appears to have an unfortunate combination of mood and psychotic symptoms, substance abuse, and narcissistic and antisocial personality qualities. He has been nonadherent with outpatient treatment, abusing cannabis and cocaine, violent and threatening others, and as a result is now homeless, has criminal charges, is unemployed with no income, little support, and is estranged from family. His psychotic symptoms are responding to Haldol and he is now agreeing to transition to Haldol Decanoate. Pt also agreed to outpatient services that would help us work toward possible diversion plan. 304 hearing scheduled for 07/29 - potential to request conversion to [address] [place] [address] if outpatient treatment is in place and behavior continues to be improved. Inpatient treatment is medically necessary due to the severity of symptoms and risk for harm to both himself and others as a result of his provocative, threatening, and aggressive behavior. (1) Behavior disturbance: 07/17 -appears to be multifactorial, results of schizoaffective disorder, substance abuse, and antisocial personality traits. Patient has history of multiple arrests, does not believe that the laws or rules apply to him and this has been consistent throughout his many hospitalizations here, lacks remorse, and uses threats of manipulation as a way to get what he wants from others. He demonstrates irritability and aggressiveness, impulsivity and failure to plan ahead, and reckless disregard for the safety of himself and others. He also demonstrates consistent irresponsibility as indicated by failure to sustain consistent worker on her financial obligations, all of which indicate ASPD. -Continue 302 involuntary commitment, every 15 minute checks for safety. -Medically necessary private room due to agitation and violent behavior. Patient has been informed that threatening and aggressive behavior will not be excepted, and that he could face criminal charges for this. He does appear to be aware of his behavior and he is using threats of aggression to get what he wants. -Elopement precautions. 07/18 -continue to provide redirection and remind patient of interpersonal boundaries and expectations for appropriate behavior, not threatening or assaulting others. -Continue elopement precautions and private room. -I do believe there is an antisocial component to the patient's behavior and presentation, in addition to his schizoaffective disorder. He does have awareness of his behavior, and freely admits that he uses threats to manipulate others. 07/19 -The patient continues to have difficulty understanding why people cannot understand that when he makes a threat of causing serious physical harm to the person or property of others that he is "only kidding." He continues to insist that they should somehow know that he is "only kidding," even after its been pointed out to him that he is followed through on some of these threats and that people cannot possibly know which threat is real and which is not. -The patient presents with symptoms that are consistent with higher functioning autism spectrum disorder with deficits in social intelligence, information processing, socialemotional reciprocity, difficulty maintaining and understanding relationships, and avoidance of eye contact. 07/20--reviewed. continue MNPR and elopement precautions. 07/22--unchanged, Plan: continue current meds and treatment plan. 07/23 -discharge planning meeting scheduled with [facility] [facility] for tomorrow. 07/24 -has been under better behavioral control here, is not threatening others. (2) Schizoaffective disorder, bipolar type: 07/17 -diagnosed during most recent hospitalization here in 10/21/2019, prior to that was diagnosed with bipolar type I. Presentation is complicated by his persistent substance abuse, with chronic cannabis use, and now cocaine as well. -Patient is endorsing delusions of persecution, and demonstrates disorganized thought process. He showed some response to haloperidol in the ER, and will continue 10 mg twice daily with 5 mg as needed dose while gathering additional information about his recent hospitalizations. -Patient initially refused to sign ROIs to obtain records, but has now agreed to sign a release for [facility] hospitalization. He claims he has no current outpatient treatment in place. -File for 303 involuntary commitment with hearing to be held tomorrow. Anticipate that he will require [facility] and [facility] referral for long-term inpatient treatment, given his inability to maintain stability or function appropriately in the community for the past 8 months, at least 5 hospitalizations, lack of insight, homelessness, lack of supports/employment/income, health insurance, and ongoing risk to the community given his violent and threatening behavior. 07/18 -now on a 303 involuntary commitment. Continue current medications, gather information toward the need for ongoing involuntary commitment and state hospital referral. -Case complex this patient has no insurance, is not a citizen, may be in the country illegally, and even if he were willing for outpatient treatment (which she is not), would not be able to access it. We have requested a meeting with [facility] to explore options. 07/19 -The patient did agree to apply for temporary medical assistance as an involuntary civil commitment. This change may represent increased trust in the members of the treatment team. -He is willing to acknowledge that he suffers from depression. He started crying when talking about his father's recent , and sobbed each time he tried to tell me about his father and what his father admits to him. 07/20--reviewed. continue current meds and tx plan. 07/23 -currently on Haldol 10 mg twice daily, plan is to transition to Haldol Decanoate prior to discharge. Continue Escitalopram 10 mg daily (started 07/20/2020 for depression). 07/24 -Treatment planning meeting[facility], [facility] for therapy and psychiatry, and file for 304 (initially inpatient, to convert to IOC at d/c). Kathleen Harrison will meet with him 07/25. -Patient agreed to transition to Haldol Decanoate, current daily dose is 20 mg, so he will require 200-400 mg decanoate. We will start with the initial loading dose of 100 mg today, and the second 100 mg dose in 3 days. 07/25 - Continue as above - patient made significant progress yesterday with regard to agreeing to outpatient services for continued psychiatric treatment, agreeing to haloperidol decanoate, and was made aware of 304 filing. Pt reportedly seemed to be motivated by desire to avoid state hospitalization. - 304 scheduled for 07/29 - possibility of converting to 304 IOC if progress continues through the weekend and patient remains cooperative with treatment recommendations he has agreed to (3) Nonadherence to medication: 07/17 -patient was discharged from our unit on [facility] after his last hospitalization, and recommend return to an [facility] given his chronic nonadherence with treatment and lack of insight. 07/19 -The patient insists that he does not have a mental illness, other than "some depression," and he does not feel that he needs to be followed on an outpatient basis by mental health professional, as long as he can be prescribed Lexapro. 07/20--agreed superficially to injectable Haldol today, need to confirm a prescriber/means to pay. 07/25 - Received initial dose of haloperidol decanoate 100mg IM yesterday, next dose scheduled for 100mg IM 07/27 (4) Cannabis abuse: 07/17 -patient has consistently presented with drug screens positive for cannabis, and reports smoking 2-3 joints daily. This is likely worsening his mood and psychotic symptoms. He lacks any insight into the role his substance use plays, and is unable to engage in motivational interviewing or discussion of the risks of ongoing substance abuse. -Avoid prescription of controlled substances given the high risk of misuse/abuse/negative outcomes. 07/19 -The patient acknowledges that the use of cocaine, marijuana, and alcohol all lower his impulse control and he is more apt to make threats that he describes as "just kidding" when under the influence of these chemical substances. Yet he cannot seem to connect the fact that he has been hospitalized involuntarily because of the threats, and, therefore, that he needs to stop using the substances. Instead, he says "they help me relax. They are good for me. They do not cause any problem." (As above, the patient externalizes responsibility for his predicament by saying that it is simply a function of the fact that other people do not understand that he expresses himself by making threats without intent to follow through on them. More specifically, he thinks that other people ought to be able to tell when he is kidding and when he is not, and he cannot connect the fact that he sometimes does follow through on the threats with the reality that people that he encounters feel compelled to take him seriously. 07/20--reviewed. (5) Cocaine abuse: 07/17 -UDS + cocaine, and patient also reported cocaine use during ER visit in 2019. 07/19 -The patient acknowledges that the use of cocaine, marijuana, and alcohol all lower his impulse control and he is more apt to make threats that he describes as "just kidding" when under the influence of these chemical substances. Yet he cannot seem to connect the fact that he has been hospitalized involuntarily because of the threats, and, therefore, that he needs to stop using the substances. Instead, he says "they help me relax. They are good for me. They do not cause any problem." (As above, the patient externalizes responsibility for his predicament by saying that it is simply a function of the fact that other people do not understand that he expresses himself by making threats without intent to follow through on them. More specifically, he thinks that other people ought to be able to tell when he is kidding and when he is not, and he cannot connect the fact that he sometimes does follow through on the threats with the reality that people that he encounters feel compelled to take him seriously. 07/20--reviewed. Patient is refusing to engage in any discussion or counseling around his substance abuse as says it's his right. (6) Nicotine dependence: 07/17 -offer patch/gum for nicotine replacement. 07/20--reviewed. Risk Factors Assessment Male: Yes : No Do You Have Access To A Gun?: No Health Problems: No Mental Health Diagnoses: Yes Substance Use Disorders: Yes Previous Attempt: Yes Previous Psychiatric Hospitalization: Yes Hopelessness: No Smoker: Yes Protective Factors Assessment Anglican Beliefs: No : No Responsible for Young Children: No Employed: No Stable Relationships: No Supportive Family: No Good Rapport with Provider: No Interval History Identifying Information ZAY MOMIN is a 25-year-old M who currently lives in [place], has a history of schizoaffective disorder bipolar type and treatment nonadherence, and was admitted on 07/16/20 18:59 on a 302 involuntary commitment for erratic and unsafe behavior, disorganized thoughts, physical aggression towards others, and threats to harm others. He is on a 303 involuntary commitment as of 07/18/2020. Chief Complaint "I am fine." Review of Systems Notes Constitutional: denied Cardiovascular: denied Respiratory: denied Gastrointestinal: denied Neurological: denied Psychiatric: denies symptoms other than stated above Total of at least 10 systems reviewed, pertinent positives as above and in HPI. Sleep Information Total Hours of Sleep: 6.75 Sleep Comments: pt on q-15 minute checks Meal Information Percent Meal Consumed - Breakfast: 90 Percent Meal Consumed - Lunch: 40 Percent Meal Consumed - Dinner: 70 Nutrition Comment: prefers to eat later Subjective Subjective Patient was seen & assessed and interval progress reviewed with nursing and social work. Staff report the patient had a rather significant turn around yesterday, agreeing to comply with outpatient treatment recommendations and even agreeable to receive haloperidol decanoate. Pt was informed of plan for involuntary outpatient commitment, reportedly he was very motivated by his stormy win to avoid state hospitalization. Pt was seen today to assess progress since admission. Pt reports "I am fine." He has been a bit more withdrawn today, but still interacts appropriately with peers in the milieu. He tells this provider "I'm just ready to get out of here." We reviewed the services he agreed to yesterday, and he continues to desire to work on a diversion plan to avoid the state hospital. Pt denies any issues after receiving his first dose of haloperidol decanoate. He denies SI/HI and other acute concerns. He does not verbalize any delusional thinking today, no inappropriate statements. Pt denied other needs or concerns presently. Physical Exam Psychiatric Orientation: alert, oriented x 3 and cooperative Apperance: appropriately dressed, + disheveled (hair appearing unkempt) and appeared stated age Eye Contact: good eye contact Motor Behavior: no abnormal motor movements (observed while sitting upright in bed) Speech: normal rate/rhythm/volume of speech Affect: + blunted affect Mood: + depressed mood (but states this is only related to prolonged hospitalization) Thought Process: goal directed thought process Thought Content: reality based without delusions; no hopelessness and no worthlessness Suicidal Thoughts: denies suicidal thoughts Homicidal Thoughts: denies homicidal thoughts Hallucinations: no auditory hallucinations and no visual hallucinations Cognition: attention grossly intact and language grossly intact Estimated Intelligence: consistent with education level Insight: + limited insight Judgement: + limited judgement Vital Signs (Past 24 Hours) Last Vital Signs Temp 36.5 C 07/25/20 06:00 Pulse 73 07/25/20 06:00 Resp 16 07/25/20 06:00 BP 95/62 L 07/25/20 06:00 Pulse Ox 98 07/16/20 19:00 Results & Data ([facility]) Current Inpatient Medications Current Inpatient Medications: Current Inpatient Medications Acetaminophen (Acetaminophen 325 Mg Tab) 650 mg PO Q4H PRN PRN Reason: Headache or Minor Fever Stop: 08/15/20 18:57 Last Admin: 07/18/20 11:49 Dose: 650 mg Documented by: Al Hydrox/Mg Hydrox/Simethicone (Aluminum/Magnesium Susp 30 Ml Udc) 30 ml PO Q4H PRN PRN Reason: GI Upset Stop: 08/15/20 18:57 Bismuth Subsalicylate (Bismuth Subsalicylate Liqd 236 Ml) 15 ml PO PRN PRN PRN Reason: Loose Stool Stop: 08/15/20 18:57 Escitalopram Oxalate (Escitalopram Oxalate 10 Mg Tab) 10 mg PO QAM JANET Stop: 08/19/20 08:59 Last Admin: 07/25/20 08:55 Dose: 10 mg Documented by: Haloperidol (Haloperidol 5 Mg Tab) 10 mg PO BID JANET Stop: 08/15/20 20:59 Last Admin: 07/25/20 08:55 Dose: 10 mg Documented by: Haloperidol (Haloperidol 5 Mg Tab) 5 mg PO Q4H PRN PRN Reason: psychosis/agitation Stop: 08/15/20 19:05 Last Admin: 07/18/20 11:10 Dose: 5 mg Documented by: Haloperidol Decanoate (Haloperidol Decanoate Inj 50 Mg/Ml Vial) 100 mg IM ONE ONE Stop: 07/27/20 09:01 Haloperidol Lactate (Haloperidol Lactate 5 Mg/Ml 1 Ml Vial) 5 mg IM Q4H PRN PRN Reason: acute agitation Stop: 08/15/20 19:07 Hydroxyzine HCl (Hydroxyzine Hcl 25 Mg Tab) 50 mg PO HSZ PRN PRN Reason: Insomnia Stop: 08/15/20 18:57 Hydroxyzine HCl (Hydroxyzine Hcl 25 Mg Tab) 25 mg PO Q4H PRN PRN Reason: Anxiety Stop: 08/15/20 18:57 Lorazepam (Lorazepam 1 Mg Tab) 1 mg PO Q4H PRN PRN Reason: agitation/psychosis Stop: 08/15/20 19:06 Last Admin: 07/24/20 11:32 Dose: 1 mg Documented by: Lorazepam (Lorazepam 2 Mg/Ml Vial (Im Use)) 2 mg IM Q4H PRN PRN Reason: acute agitation Stop: 08/15/20 19:07 Magnesium Hydroxide (Magnesium Hydroxide Susp 30 Ml Udc) 30 ml PO DAILY PRN PRN Reason: Constipation Stop: 08/15/20 18:57 Miscellaneous (Remove Nicoderm Patch) 1 ea N/A 0859 [facility] Stop: 08/16/20 08:58 Last Admin: 07/25/20 08:56 Dose: Not Given Documented by: Nicotine (Nicotine 14 Mg/24 Hr Patch) 14 mg TD QAM [facility] Stop: 08/16/20 08:59 Last Admin: 07/25/20 08:56 Dose: Not Given Documented by: Nicotine Polacrilex (Nicotine Polacrilex 2 Mg Gum) 1 piece MT Q1H PRN PRN Reason: nicotine cravings Stop: 08/17/20 15:38 Last Admin: 07/25/20 12:43 Dose: 1 piece Documented by: Sodium Chloride (Sodium Chloride 0.65% Na Soln 45 Ml ([place])) 1 - 2 sprays NA PRN PRN PRN Reason: Nasal Dryness/Congestion Stop: 08/15/20 18:57 Mental Health & Subst Abuse Tx Therapist Name of Therapist: No therapist
[2020-07-25] MEDS: LORazepam 1 MG TAB PO PRN (15:01)
[2020-07-26] MEDS: haloperidoL 5 MG TAB PO SCH ×2 (09:17→20:45)
[2020-07-26] MEDS: ESCITALOPRAM OXALATE 10 MG TAB PO SCH (09:18)
[2020-07-26] MEDS: NICOTINE 14 MG/24 HR PATCH TD SCH (09:29)
[2020-07-26] MEDS: NICOTINE POLACRILEX 2 MG GUM MT PRN ×2 (09:30→13:47)
--- NOTE | 2020-07-26 10:38 | Psychiatric Progress Note ---
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 Patient lacks insight and appears to have an unfortunate combination of mood and psychotic symptoms, substance abuse, and narcissistic and antisocial personality qualities. He has been nonadherent with outpatient treatment, abusing cannabis and cocaine, violent and threatening others, and as a result is now homeless, has criminal charges, is unemployed with no income, little support, and is estranged from family. His psychotic symptoms are responding to Haldol and he is now agreeing to transition to Haldol Decanoate. Pt also agreed to outpatient services that would help us work toward possible diversion plan. 304 hearing scheduled for 07/29 - potential to request conversion to [address] [place] [address] if outpatient treatment is in place and behavior continues to be improved. Inpatient treatment is medically necessary due to the severity of symptoms and risk for harm to both himself and others as a result of his provocative, threatening, and aggressive behavior. (1) Behavior disturbance: 07/17 -appears to be multifactorial, results of schizoaffective disorder, substance abuse, and antisocial personality traits. Patient has history of multiple arrests, does not believe that the laws or rules apply to him and this has been consistent throughout his many hospitalizations here, lacks remorse, and uses threats of manipulation as a way to get what he wants from others. He demonstrates irritability and aggressiveness, impulsivity and failure to plan ahead, and reckless disregard for the safety of himself and others. He also demonstrates consistent irresponsibility as indicated by failure to sustain consistent worker on her financial obligations, all of which indicate ASPD. -Continue 302 involuntary commitment, every 15 minute checks for safety. -Medically necessary private room due to agitation and violent behavior. Patient has been informed that threatening and aggressive behavior will not be excepted, and that he could face criminal charges for this. He does appear to be aware of his behavior and he is using threats of aggression to get what he wants. -Elopement precautions. 07/18 -continue to provide redirection and remind patient of interpersonal boundaries and expectations for appropriate behavior, not threatening or assaulting others. -Continue elopement precautions and private room. -I do believe there is an antisocial component to the patient's behavior and presentation, in addition to his schizoaffective disorder. He does have awareness of his behavior, and freely admits that he uses threats to manipulate others. 07/19 -The patient continues to have difficulty understanding why people cannot understand that when he makes a threat of causing serious physical harm to the person or property of others that he is "only kidding." He continues to insist that they should somehow know that he is "only kidding," even after its been pointed out to him that he is followed through on some of these threats and that people cannot possibly know which threat is real and which is not. -The patient presents with symptoms that are consistent with higher functioning autism spectrum disorder with deficits in social intelligence, information processing, socialemotional reciprocity, difficulty maintaining and understanding relationships, and avoidance of eye contact. 07/20--reviewed. continue MNPR and elopement precautions. 07/22--unchanged, Plan: continue current meds and treatment plan. 07/23 -discharge planning meeting scheduled with [facility] for tomorrow. 07/24 -has been under better behavioral control here, is not threatening others. 07/26 -Today, the patient is able to talk about his Ms. apprehension that he can make a direct threats to harm the person or property of others, while assuming that the other people will realize that he is not seriouseven though, on occasions in the past, he has followed through on a few of the threats. He notes that he has come to realize that he has got to have a better way of expressing anger than to make empty threats and assume people will realize he is not serious. The patient does connect his psychiatric hospitalization with his preadmission behaviors and tells us that he has learned through individual and group therapies here coping strategies that will allow him to dissipate anger without making threats. (2) Schizoaffective disorder, bipolar type: 07/17 -diagnosed during most recent hospitalization here in 10/21/2019, prior to that was diagnosed with bipolar type I. Presentation is complicated by his persistent substance abuse, with chronic cannabis use, and now cocaine as well. -Patient is endorsing delusions of persecution, and demonstrates disorganized thought process. He showed some response to haloperidol in the ER, and will continue 10 mg twice daily with 5 mg as needed dose while gathering additional information about his recent hospitalizations. -Patient initially refused to sign ROIs to obtain records, but has now agreed to sign a release for [facility] hospitalization. He claims he has no current outpatient treatment in place. -File for 303 involuntary commitment with hearing to be held tomorrow. Anticipate that he will require 304 and [facility] referral for long-term inpatient treatment, given his inability to maintain stability or function appropriately in the community for the past 8 months, at least 5 hospitalizations, lack of insight, homelessness, lack of supports/employment/income, health insurance, and ongoing risk to the community given his violent and threatening behavior. 07/18 -now on a 303 involuntary commitment. Continue current medications, gather information toward the need for ongoing involuntary commitment and state hospital referral. -Case complex this patient has no insurance, is not a citizen, may be in the country illegally, and even if he were willing for outpatient treatment (which she is not), would not be able to access it. We have requested a meeting with [facility] to explore options. 07/19 -The patient did agree to apply for temporary medical assistance as an involuntary civil commitment. This change may represent increased trust in the members of the treatment team. -He is willing to acknowledge that he suffers from depression. He started crying when talking about his father's recent , and sobbed each time he tried to tell me about his father and what his father admits to him. 07/20--reviewed. continue current meds and tx plan. 07/23 -currently on Haldol 10 mg twice daily, plan is to transition to Haldol Decanoate prior to discharge. Continue Escitalopram 10 mg daily (started 07/20/2020 for depression). 07/24 -[facility] for [facility] and psychiatry, and file for 304 (initially inpatient, to convert to [facility] at d/c). Kathleen Harrison will meet with him 07/25. -Patient agreed to transition to Haldol Decanoate, current daily dose is 20 mg, so he will require 200-400 mg decanoate. We will start with the initial loading dose of 100 mg today, and the second 100 mg dose in 3 days. 07/25 - Continue as above - patient made significant progress yesterday with regard to agreeing to outpatient services for continued psychiatric treatment, agreeing to haloperidol decanoate, and was made aware of 304 filing. Pt reportedly seemed to be motivated by desire to avoid state hospitalization. - 304 scheduled for 07/29 - possibility of converting to 304 IO if progress continues through the weekend and patient remains cooperative with treatment recommendations he has agreed to 07/26 -The patient does allow that he is feeling better in terms of his mood and described himself as being more "calm." He also reports that his sleep has improved considerably. He continues to agree to adhere to outpatient treatment recommendations and notes that it is his understanding that the plan will be for him to be discharged on a 304 outpatient commitment next week, assuming things continue to go well. -There is no evidence of any psychotic features. The patient's affect appears to be euthymic. He has not engaged in any threatening behaviors recently. He has been adherent with medications and expresses an intent to remain adherent following discharge. Patient also reports that he is tolerating haloperidol decanoate without identified adverse effects. (3) Nonadherence to medication: 07/17 -patient was discharged from our unit on [facility] [place] after his last hospitalization, and recommend return to an [facility] given his chronic nonadherence with treatment and lack of insight. 07/19 -The patient insists that he does not have a mental illness, other than "some depression," and he does not feel that he needs to be followed on an outpatient basis by mental health professional, as long as he can be prescribed Lexapro. 07/20--agreed superficially to injectable Haldol today, need to confirm a prescriber/means to pay. 07/25 - Received initial dose of haloperidol decanoate 100mg IM yesterday, next dose scheduled for 100mg IM 07/27 07/26 -The patient reports that he understands that he will be receiving his second dose of haloperidol at decanoate tomorrow, and expresses an intent to adhere to recommendations by taking it. -He continues to voice some uncertainty about the necessity of pharmacologic interventions in his case, but does allow that he is enjoyed certain advantages associated with Haldol decanoate, and he is willing to accept feedback regarding his observed clinical and behavioral improvement in association with the medication. (4) Cannabis abuse: 07/17 -patient has consistently presented with drug screens positive for cannabis, and reports smoking 2-3 joints daily. This is likely worsening his mood and psychotic symptoms. He lacks any insight into the role his substance use plays, and is unable to engage in motivational interviewing or discussion of the risks of ongoing substance abuse. -Avoid prescription of controlled substances given the high risk of misuse/abuse/negative outcomes. 07/19 -The patient acknowledges that the use of cocaine, marijuana, and alcohol all lower his impulse control and he is more apt to make threats that he describes as "just kidding" when under the influence of these chemical substances. Yet he cannot seem to connect the fact that he has been hospitalized involuntarily because of the threats, and, therefore, that he needs to stop using the substances. Instead, he says "they help me relax. They are good for me. They do not cause any problem." (As above, the patient externalizes responsibility for his predicament by saying that it is simply a function of the fact that other people do not understand that he expresses himself by making threats without intent to follow through on them. More specifically, he thinks that other people ought to be able to tell when he is kidding and when he is not, and he cannot connect the fact that he sometimes does follow through on the threats with the reality that people that he encounters feel compelled to take him seriously. 07/20--reviewed. 07/26 -Patient says that he is committed not to use cocaine, marijuana and alcohol following discharge. However, he smiles slightly when he makes the statement and avoids eye contact. (5) Cocaine abuse: 07/17 -UDS + cocaine, and patient also reported cocaine use during ER visit in 2019. 07/19 -The patient acknowledges that the use of cocaine, marijuana, and alcohol all l ower his impulse control and he is more apt to make threats that he describes as "just kidding" when under the influence of these chemical substances. Yet he cannot seem to connect the fact that he has been hospitalized involuntarily because of the threats, and, therefore, that he needs to stop using the substances. Instead, he says "they help me relax. They are good for me. They do not cause any problem." (As above, the patient externalizes responsibility for his predicament by saying that it is simply a function of the fact that other people do not understand that he expresses himself by making threats without intent to follow through on them. More specifically, he thinks that other people ought to be able to tell when he is kidding and when he is not, and he cannot connect the fact that he sometimes does follow through on the threats with the reality that people that he encounters feel compelled to take him seriously. 07/20--reviewed. Patient is refusing to engage in any discussion or counseling around his substance abuse as says it's his right. 07/26 -Patient says that he is committed not to use cocaine, marijuana and alcohol following discharge. However, he smiles slightly when he makes the statement and avoids eye contact. (6) Nicotine dependence: 07/17 -offer patch/gum for nicotine replacement. 07/20--reviewed. 07/26 -Today, the patient indicates that it is his plan to resume smoking upon discharge. Smoking cessation is encouraged given the fact that he has been tobacco free since admission 10 days ago. Risk Factors Assessment Male: Yes : No Do You Have Access To A Gun?: No Health Problems: No Mental Health Diagnoses: Yes Substance Use Disorders: Yes Previous Attempt: Yes Previous Psychiatric Hospitalization: Yes Hopelessness: No Smoker: Yes Protective Factors Assessment Restoration Beliefs: No : No Responsible for Young Children: No Employed: No Stable Relationships: No Supportive Family: No Good Rapport with Provider: No Interval History Identifying Information ZAY MOMIN is a 25-year-old M who currently lives in [place], has a history of schizoaffective disorder bipolar type and treatment nonadherence, and was admitted on 07/16/20 18:59 on a 302 involuntary commitment for erratic and unsafe behavior, disorganized thoughts, physical aggression towards others, and threats to harm others. He is on a 303 involuntary commitment as of 07/18/2020. Chief Complaint "I am doing good. Stable.". Review of Systems Sleep Information Total Hours of Sleep: 9.5 Sleep Comments: pt on q-15 minute checks Meal Information Percent Meal Consumed - Breakfast: 100 Percent Meal Consumed - Lunch: 75 Percent Meal Consumed - Dinner: 0 Nutrition Comment: Pt stated that he wants to eat later. Subjective Subjective Patient was seen & assessed and interval progress reviewed with treatment team. I met individually with the patient in order to assess his current mental status, evaluate his response to treatment, coordinate any change in the patient's treatment regimen together with the patient; and address issues, questions, and concerns that may arise. The patient began by telling me that he feels that he has been doing better, notes that he has been started on haloperidol intramuscularly. He notes in addition that he will be receiving his second IM dose of haloperidol tomorrow. He says that he feels that Haldol may be helping him to stay "more calm," and he also says that he has been sleeping better. No adverse effects are reported upon questioning. The patient focused on his plans for community reentry. The patient reports that his long-term goal will be to find his own house to live in, and he hopes that eventually he will be able to once again matriculate. at [employer] or some other College in the area. He reports no thoughts of suicide, and says that he does understand now that during threats to other people may be taken seriously by the other person and that the safest plan would be to not make direct threats to other people unless he means them. The patient consistently reports that he is not experiencing any thoughts of causing physical harm to anyone, bears no ill will towards anyone at this point, and expresses a plan to remain in treatment. Physical Exam Psychiatric Orientation: alert, oriented x 3 and cooperative Apperance: appropriately dressed, appropriately groomed and appeared stated age Eye Contact: good eye contact Motor Behavior: steady gait and station Speech: normal rate/rhythm/volume of speech Affect: euthymic affect "Good mood." And "stable." Thought Process: goal directed thought process Thought Content: reality based without delusions Suicidal Thoughts: denies suicidal thoughts Homicidal Thoughts: denies homicidal thoughts Hallucinations: no auditory hallucinations and no visual hallucinations Cognition: recent memory grossly intact, remote memory grossly intact and attention grossly intact Estimated Intelligence: + above average estimated intelligence Insight: + fair insight Judgement: + fair judgement Vital Signs (Past 24 Hours) Last Vital Signs Temp 36.7 C 07/26/20 06:00 Pulse 71 07/26/20 06:12 Resp 15 07/26/20 06:00 BP 93/43 L 07/26/20 06:12 Pulse Ox 98 07/16/20 19:00 Results & Data ([facility]) Current Inpatient Medications Current Inpatient Medications: Current Inpatient Medications Acetaminophen (Acetaminophen 325 Mg Tab) 650 mg PO Q4H PRN PRN Reason: Headache or Minor Fever Stop: 08/15/20 18:57 Last Admin: 07/18/20 11:49 Dose: 650 mg Documented by: Al Hydrox/Mg Hydrox/Simethicone (Aluminum/Magnesium Susp 30 Ml Udc) 30 ml PO Q4H PRN PRN Reason: GI Upset Stop: 08/15/20 18:57 Bismuth Subsalicylate (Bismuth Subsalicylate Liqd 236 Ml) 15 ml PO PRN PRN PRN Reason: Loose Stool Stop: 08/15/20 18:57 Escitalopram Oxalate (Escitalopram Oxalate 10 Mg Tab) 10 mg PO QAM JANET Stop: 08/19/20 08:59 Last Admin: 07/26/20 09:18 Dose: 10 mg Documented by: Haloperidol (Haloperidol 5 Mg Tab) 10 mg PO BID JANET Stop: 08/15/20 20:59 Last Admin: 07/26/20 09:17 Dose: 10 mg Documented by: Haloperidol (Haloperidol 5 Mg Tab) 5 mg PO Q4H PRN PRN Reason: psychosis/agitation Stop: 08/15/20 19:05 Last Admin: 07/18/20 11:10 Dose: 5 mg Documented by: Haloperidol Decanoate (Haloperidol Decanoate Inj 50 Mg/Ml Vial) 100 mg IM ONE ONE Stop: 07/27/20 09:01 Haloperidol Lactate (Haloperidol Lactate 5 Mg/Ml 1 Ml Vial) 5 mg IM Q4H PRN PRN Reason: acute agitation Stop: 08/15/20 19:07 Hydroxyzine HCl (Hydroxyzine Hcl 25 Mg Tab) 50 mg PO HSZ PRN PRN Reason: Insomnia Stop: 08/15/20 18:57 Hydroxyzine HCl (Hydroxyzine Hcl 25 Mg Tab) 25 mg PO Q4H PRN PRN Reason: Anxiety Stop: 08/15/20 18:57 Lorazepam (Lorazepam 1 Mg Tab) 1 mg PO Q4H PRN PRN Reason: agitation/psychosis Stop: 08/15/20 19:06 Last Admin: 07/25/20 15:01 Dose: 1 mg Documented by: Lorazepam (Lorazepam 2 Mg/Ml Vial (Im Use)) 2 mg IM Q4H PRN PRN Reason: acute agitation Stop: 08/15/20 19:07 Magnesium Hydroxide (Magnesium Hydroxide Susp 30 Ml Udc) 30 ml PO DAILY PRN PRN Reason: Constipation Stop: 08/15/20 18:57 Miscellaneous (Remove Nicoderm Patch) 1 ea N/A 0859 [facility] Stop: 08/16/20 08:58 Last Admin: 07/26/20 09:29 Dose: Not Given Documented by: Nicotine (Nicotine 14 Mg/24 Hr Patch) 14 mg TD QAM [facility] Stop: 08/16/20 08:59 Last Admin: 07/26/20 09:29 Dose: Not Given Documented by: Nicotine Polacrilex (Nicotine Polacrilex 2 Mg Gum) 1 piece MT Q1H PRN PRN Reason: nicotine cravings Stop: 08/17/20 15:38 Last Admin: 07/26/20 09:30 Dose: 1 piece Documented by: Sodium Chloride (Sodium Chloride 0.65% Na Soln 45 Ml ([place])) 1 - 2 sprays NA PRN PRN PRN Reason: Nasal Dryness/Congestion Stop: 08/15/20 18:57 Mental Health & Subst Abuse Tx Therapist Name of Therapist: No therapist Local 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
[2020-07-26] MEDS: LORazepam 1 MG TAB PO PRN (14:54)
[2020-07-27] MEDS: NICOTINE POLACRILEX 2 MG GUM MT PRN ×3 (07:44→11:50)
[2020-07-27] MEDS: haloperidoL 5 MG TAB PO SCH ×2 (08:51→20:51)
[2020-07-27] MEDS: ESCITALOPRAM OXALATE 10 MG TAB PO SCH (08:52)
[2020-07-27] MEDS: NICOTINE 14 MG/24 HR PATCH TD SCH (08:54)
[2020-07-27] MEDS ORDERED: HALOPERIDOL DECANOATE INJ 50 MG/ML VIAL IM ONE (09:00)
[2020-07-27] MEDS ORDERED: BENZTROPINE MESYLATE 1 MG TAB PO PRN (14:22)
--- NOTE | 2020-07-27 14:22 | Psychiatric Progress Note ---
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 Patient lacks insight and appears to have an unfortunate combination of mood and psychotic symptoms, substance abuse, and narcissistic and antisocial personality qualities. He has been nonadherent with outpatient treatment, abusing cannabis and cocaine, violent and threatening others, and as a result is now homeless, has criminal charges, is unemployed with no income, little support, and is estranged from family. His psychotic symptoms are responding to Haldol and he is now agreeing to transition to Haldol Decanoate. Pt also agreed to outpatient services that would help us work toward possible diversion plan. 304 hearing scheduled for 07/29 - potential to request conversion to [address] [place] [address] if outpatient treatment is in place and behavior continues to be improved. Inpatient treatment is medically necessary due to the severity of symptoms and risk for harm to both himself and others as a result of his provocative, threatening, and aggressive behavior. (1) Behavior disturbance: 07/17 -appears to be multifactorial, results of schizoaffective disorder, substance abuse, and antisocial personality traits. Patient has history of multiple arrests, does not believe that the laws or rules apply to him and this has been consistent throughout his many hospitalizations here, lacks remorse, and uses threats of manipulation as a way to get what he wants from others. He demonstrates irritability and aggressiveness, impulsivity and failure to plan ahead, and reckless disregard for the safety of himself and others. He also demonstrates consistent irresponsibility as indicated by failure to sustain consistent worker on her financial obligations, all of which indicate ASPD. -Continue 302 involuntary commitment, every 15 minute checks for safety. -Medically necessary private room due to agitation and violent behavior. Patient has been informed that threatening and aggressive behavior will not be excepted, and that he could face criminal charges for this. He does appear to be aware of his behavior and he is using threats of aggression to get what he wants. -Elopement precautions. 07/18 -continue to provide redirection and remind patient of interpersonal boundaries and expectations for appropriate behavior, not threatening or assaulting others. -Continue elopement precautions and private room. -I do believe there is an antisocial component to the patient's behavior and presentation, in addition to his schizoaffective disorder. He does have awareness of his behavior, and freely admits that he uses threats to manipulate others. 07/19 -The patient continues to have difficulty understanding why people cannot understand that when he makes a threat of causing serious physical harm to the person or property of others that he is "only kidding." He continues to insist that they should somehow know that he is "only kidding," even after its been pointed out to him that he is followed through on some of these threats and that people cannot possibly know which threat is real and which is not. -The patient presents with symptoms that are consistent with higher functioning autism spectrum disorder with deficits in social intelligence, information processing, socialemotional reciprocity, difficulty maintaining and understanding relationships, and avoidance of eye contact. 07/20--reviewed. continue MNPR and elopement precautions. 07/22--unchanged, Plan: continue current meds and treatment plan. 07/23 -discharge planning meeting scheduled with [facility] for tomorrow. 07/24 -has been under better behavioral control here, is not threatening others. 07/26 -Today, the patient is able to talk about his Ms. apprehension that he can make a direct threats to harm the person or property of others, while assuming that the other people will realize that he is not seriouseven though, on occasions in the past, he has followed through on a few of the threats. He notes that he has come to realize that he has got to have a better way of expressing anger than to make empty threats and assume people will realize he is not serious. The patient does connect his psychiatric hospitalization with his preadmission behaviors and tells us that he has learned through individual and group therapies here coping strategies that will allow him to dissipate anger without making threats. 07/27 -No threatening or aggressive behavior apparent. (2) Schizoaffective disorder, bipolar type: 07/17 -diagnosed during most recent hospitalization here in 10/21/2019, prior to that was diagnosed with bipolar type I. Presentation is complicated by his persistent substance abuse, with chronic cannabis use, and now cocaine as well. -Patient is endorsing delusions of persecution, and demonstrates disorganized thought process. He showed some response to haloperidol in the ER, and will continue 10 mg twice daily with 5 mg as needed dose while gathering additional information about his recent hospitalizations. -Patient initially refused to sign ROIs to obtain records, but has now agreed to sign a release for [facility] hospitalization. He claims he has no current outpatient treatment in place. -File for 303 involuntary commitment with hearing to be held tomorrow. Anticipate that he will require 304 and [facility] referral for long-term inpatient treatment, given his inability to maintain stability or function appropriately in the community for the past 8 months, at least 5 hospitalizations, lack of insight, homelessness, lack of supports/employment/income, health insurance, and ongoing risk to the community given his violent and threatening behavior. 07/18 -now on a 303 involuntary commitment. Continue current medications, gather information toward the need for ongoing involuntary commitment and state hospital referral. -Case complex this patient has no insurance, is not a citizen, may be in the country illegally, and even if he were willing for outpatient treatment (which she is not), would not be able to access it. We have requested a meeting with [facility] to explore options. 07/19 -The patient did agree to apply for temporary medical assistance as an involuntary civil commitment. This change may represent increased trust in the members of the treatment team. -He is willing to acknowledge that he suffers from depression. He started crying when talking about his father's recent , and sobbed each time he tried to tell me about his father and what his father admits to him. 07/20--reviewed. continue current meds and tx plan. 07/23 -currently on Haldol 10 mg twice daily, plan is to transition to Haldol Decanoate prior to discharge. Continue Escitalopram 10 mg daily (started 07/20/2020 for depression). 07/24 -Treatment planning meeting: [facility], [facility] for therapy and psychiatry, and file for 304 (initially inpatient, to convert to [facility] at d/c). Kathleen Harrison will meet with him 07/25. -Patient agreed to transition to Haldol Decanoate, current daily dose is 20 mg, so he will require 200-400 mg decanoate. We will start with the initial loading dose of 100 mg today, and the second 100 mg dose in 3 days. 07/25 - Continue as above - patient made significant progress yesterday with regard to agreeing to outpatient services for continued psychiatric treatment, agreeing to haloperidol decanoate, and was made aware of 304 filing. Pt reportedly seemed to be motivated by desire to avoid state hospitalization. - 304 scheduled for 07/29 - possibility of converting to 304 IOC if progress continues through the weekend and patient remains cooperative with treatment recommendations he has agreed to 07/26 -The patient does allow that he is feeling better in terms of his mood and described himself as being more "calm." He also reports that his sleep has im proved considerably. He continues to agree to adhere to outpatient treatment recommendations and notes that it is his understanding that the plan will be for him to be discharged on a 304 outpatient commitment next week, assuming things continue to go well. -There is no evidence of any psychotic features. The patient's affect appears to be euthymic. He has not engaged in any threatening behaviors recently. He has been adherent with medications and expresses an intent to remain adherent following discharge. Patient also reports that he is tolerating haloperidol decanoate without identified adverse effects. 07/27 -Patient to receive second loading dose of Haldol Decanoate today. Oral Haldol can be tapered slowly over the next several weeks as indicated and tolerated. -We will make a Cogentin 1 mg twice daily as needed available if concern for developing dystonia on Haldol (3) Nonadherence to medication: 07/17 -patient was discharged from our unit on [facility] after his last hospitalization, and recommend return to an [facility] given his chronic nonadherence with treatment and lack of insight. 07/19 -The patient insists that he does not have a mental illness, other than "some depression," and he does not feel that he needs to be followed on an outpatient basis by mental health professional, as long as he can be prescribed Lexapro. 07/20--agreed superficially to injectable Haldol today, need to confirm a prescriber/means to pay. 07/25 - Received initial dose of haloperidol decanoate 100mg IM yesterday, next dose scheduled for 100mg IM 07/27 07/26 -The patient reports that he understands that he will be receiving his second dose of haloperidol at decanoate tomorrow, and expresses an intent to adhere to recommendations by taking it. -He continues to voice some uncertainty about the necessity of pharmacologic interventions in his case, but does allow that he is enjoyed certain advantages associated with Haldol decanoate, and he is willing to accept feedback regarding his observed clinical and behavioral improvement in association with the medication. (4) Cannabis abuse: 07/17 -patient has consistently presented with drug screens positive for cannabis, and reports smoking 2-3 joints daily. This is likely worsening his mood and psychotic symptoms. He lacks any insight into the role his substance use plays, and is unable to engage in motivational interviewing or discussion of the risks of ongoing substance abuse. -Avoid prescription of controlled substances given the high risk of misuse/abuse/negative outcomes. 07/19 -The patient acknowledges that the use of cocaine, marijuana, and alcohol all lower his impulse control and he is more apt to make threats that he describes as "just kidding" when under the influence of these chemical substances. Yet he cannot seem to connect the fact that he has been hospitalized involuntarily because of the threats, and, therefore, that he needs to stop using the substances. Instead, he says "they help me relax. They are good for me. They do not cause any problem." (As above, the patient externalizes responsibility for his predicament by saying that it is simply a function of the fact that other people do not understand that he expresses himself by making threats without intent to follow through on them. More specifically, he thinks that other people ought to be able to tell when he is kidding and when he is not, and he cannot connect the fact that he sometimes does follow through on the threats with the reality that people that he encounters feel compelled to take him seriously. 07/20--reviewed. 07/26 -Patient says that he is committed not to use cocaine, marijuana and alcohol following discharge. However, he smiles slightly when he makes the statement and avoids eye contact. (5) Cocaine abuse: 07/17 -UDS + cocaine, and patient also reported cocaine use during ER visit in 2019. 07/19 -The patient acknowledges that the use of cocaine, marijuana, and alcohol all lower his impulse control and he is more apt to make threats that he describes as "just kidding" when under the influence of these chemical substances. Yet he cannot seem to connect the fact that he has been hospitalized involuntarily because of the threats, and, therefore, that he needs to stop using the substances. Instead, he says "they help me relax. They are good for me. They do not cause any problem." (As above, the patient externalizes responsibility for his predicament by saying that it is simply a function of the fact that other people do not understand that he expresses himself by making threats without intent to follow through on them. More specifically, he thinks that other people ought to be able to tell when he is kidding and when he is not, and he cannot connect the fact that he sometimes does follow through on the threats with the reality that people that he encounters feel compelled to take him seriously. 07/20--reviewed. Patient is refusing to engage in any discussion or counseling around his substance abuse as says it's his right. 07/26 -Patient says that he is committed not to use cocaine, marijuana and alcohol following discharge. However, he smiles slightly when he makes the statement and avoids eye contact. (6) Nicotine dependence: 07/17 -offer patch/gum for nicotine replacement. 07/20--reviewed. 07/26 -Today, the patient indicates that it is his plan to resume smoking upon discharge. Smoking cessation is encouraged given the fact that he has been tobacco free since admission 10 days ago. Risk Factors Assessment Male: Yes : No Do You Have Access To A Gun?: No Health Problems: No Mental Health Diagnoses: Yes Substance Use Disorders: Yes Previous Attempt: Yes Previous Psychiatric Hospitalization: Yes Hopelessness: No Smoker: Yes Protective Factors Assessment [employer] Beliefs: No : No Responsible for Young Children: No Employed: No Stable Relationships: No Supportive Family: No Good Rapport with Provider: No Interval History Identifying Information ZAY MOMIN is a 25-year-old M who currently lives in [place], has a history of schizoaffective disorder bipolar type and treatment nonadherence, and was admitted on 07/16/20 18:59 on a 302 involuntary commitment for erratic and unsafe behavior, disorganized thoughts, physical aggression towards others, and threats to harm others. He is on a 303 involuntary commitment as of 07/18/2020. Chief Complaint "I am ok. why do doctors think i have a problem with anger?". Review of Systems Notes Denies muscle tightness Sleep Information Total Hours of Sleep: 9 Sleep Comments: pt on q-15 minute checks Meal Information Percent Meal Consumed - Breakfast: 100 Percent Meal Consumed - Lunch: 90 Percent Meal Consumed - Dinner: 80 Nutrition Comment: Pt stated that he wants to eat later. Subjective Subjective Patient was seen & assessed and interval progress reviewed with treatment team. No acute events overnight. Patient scheduled for second loading dose of Haldol Decanoate today. Scheduled for 304 hearing on Wednesday with plan to convert to outpatient prior to discharge. Per nursing, patient was seen for independent psychological evaluation by Naeem Pelletier, PhD yesterday. Results of that evaluation are not available for my review today. On interview, patient denies tolerability concerns from Haldol so far. He specifically denies dystonia, unsteadiness of gait, dysarthria. He does sound a little dysarthric to my ear however nursing staff deny appreciation of change in his articulation so far from his baseline. Patient again demonstrates rounded insight regarding his concerning behaviors. Physical Exam Psychiatric Orientation: alert and cooperative Apperance: + disheveled Eye Contact: good eye contact Motor Behavior: + abnormal motor movements (He seems to demonstrate some diminished arm swing on ambulation bilaterally) Speech is soft with somewhat imprecise articulation Affect: + blunted affect Mood: + depressed mood Thought Process: goal directed thought process Thought Content: no hopelessness Suicidal Thoughts: denies suicidal thoughts Homicidal Thoughts: denies homicidal thoughts Hallucinations: no auditory hallucinations and no visual hallucinations Insight: + limited insight Judgement: + limited judgement Vital Signs (Past 24 Hours) Last Vital Signs Temp 36.6 C 07/27/20 06:44 Pulse 84 07/27/20 06:45 Resp 16 07/27/20 06:44 BP 110/68 07/27/20 06:45 Pulse Ox 98 07/16/20 19:00 Results & Data ([facility]) Current Inpatient Medications Current Inpatient Medications: Current Inpatient Medications Acetaminophen (Acetaminophen 325 Mg Tab) 650 mg PO Q4H PRN PRN Reason: Headache or Minor Fever Stop: 08/15/20 18:57 Last Admin: 07/18/20 11:49 Dose: 650 mg Documented by: Al Hydrox/Mg Hydrox/Simethicone (Aluminum/Magnesium Susp 30 Ml Udc) 30 ml PO Q4H PRN PRN Reason: GI Upset Stop: 08/15/20 18:57 Bismuth Subsalicylate (Bismuth Subsalicylate Liqd 236 Ml) 15 ml PO PRN PRN PRN Reason: Loose Stool Stop: 08/15/20 18:57 Escitalopram Oxalate (Escitalopram Oxalate 10 Mg Tab) 10 mg PO QAM [facility] Stop: 08/19/20 08:59 Last Admin: 07/27/20 08:52 Dose: 10 mg Documented by: Haloperidol (Haloperidol 5 Mg Tab) 10 mg PO BID [facility] Stop: 08/15/20 20:59 Last Admin: 07/27/20 08:51 Dose: 10 mg Documented by: Haloperidol (Haloperidol 5 Mg Tab) 5 mg PO Q4H PRN PRN Reason: psychosis/agitation Stop: 08/15/20 19:05 Last Admin: 07/18/20 11:10 Dose: 5 mg Documented by: Haloperidol Lactate (Haloperidol Lactate 5 Mg/Ml 1 Ml Vial) 5 mg IM Q4H PRN PRN Reason: acute agitation Stop: 08/15/20 19:07 Hydroxyzine HCl (Hydroxyzine Hcl 25 Mg Tab) 50 mg PO HSZ PRN PRN Reason: Insomnia Stop: 08/15/20 18:57 Hydroxyzine HCl (Hydroxyzine Hcl 25 Mg Tab) 25 mg PO Q4H PRN PRN Reason: Anxiety Stop: 08/15/20 18:57 Lorazepam (Lorazepam 1 Mg Tab) 1 mg PO Q4H PRN PRN Reason: agitation/psychosis Stop: 08/15/20 19:06 Last Admin: 07/26/20 14:54 Dose: 1 mg Documented by: Lorazepam (Lorazepam 2 Mg/Ml Vial (Im Use)) 2 mg IM Q4H PRN PRN Reason: acute agitation Stop: 08/15/20 19:07 Magnesium Hydroxide (Magnesium Hydroxide Susp 30 Ml Udc) 30 ml PO DAILY PRN PRN Reason: Constipation Stop: 08/15/20 18:57 Miscellaneous (Remove Nicoderm Patch) 1 ea N/A 0859 [facility] Stop: 08/16/20 08:58 Last Admin: 07/27/20 08:54 Dose: Not Given Documented by: Nicotine (Nicotine 14 Mg/24 Hr Patch) 14 mg TD QAM [facility] Stop: 08/16/20 08:59 Last Admin: 07/27/20 08:54 Dose: Not Given Documented by: Nicotine Polacrilex (Nicotine Polacrilex 2 Mg Gum) 1 piece MT Q1H PRN PRN Reason: nicotine cravings Stop: 08/17/20 15:38 Last Admin: 07/27/20 11:50 Dose: 1 piece Documented by: Sodium Chloride (Sodium Chloride 0.65% Na Soln 45 Ml ([place])) 1 - 2 sprays NA PRN PRN PRN Reason: Nasal Dryness/Congestion Stop: 08/15/20 18:57 Mental Health & Subst Abuse Tx Psychiatrist Name of Psychiatrist: Damon Therapist Name of Therapist: [facility] [employer] Name of [employer]: [employer] Bill Phone Number for [employer]: [phone] Post Discharge Appointments Contact Information Discharge Discharge Address: [address] [place] [address], [place] [address]
[2020-07-27] MEDS: LORazepam 1 MG TAB PO PRN (16:03)
[2020-07-28] MEDS: NICOTINE POLACRILEX 2 MG GUM MT PRN ×5 (07:46→17:56)
[2020-07-28] MEDS: NICOTINE 14 MG/24 HR PATCH TD SCH (09:43)
[2020-07-28] MEDS: haloperidoL 5 MG TAB PO SCH ×2 (10:08→20:46)
[2020-07-28] MEDS: ESCITALOPRAM OXALATE 10 MG TAB PO SCH (10:08)
--- NOTE | 2020-07-28 14:21 | Psychiatric Progress Note ---
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 Patient lacks insight and appears to have an unfortunate combination of mood and psychotic symptoms, substance abuse, and narcissistic and antisocial personality qualities. He has been nonadherent with outpatient treatment, abusing cannabis and cocaine, violent and threatening others, and as a result is now homeless, has criminal charges, is unemployed with no income, little support, and is estranged from family. His psychotic symptoms are responding to Haldol and he is now agreeing to transition to Haldol Decanoate. Pt also agreed to outpatient services that would help us work toward possible diversion plan. 304 hearing scheduled for 07/29 - potential to request conversion to [address] [place] [address] if outpatient treatment is in place and behavior continues to be improved. Inpatient treatment is medically necessary due to the severity of symptoms and risk for harm to both himself and others as a result of his provocative, threatening, and aggressive behavior. (1) Behavior disturbance: 07/17 -appears to be multifactorial, results of schizoaffective disorder, substance abuse, and antisocial personality traits. Patient has history of multiple arrests, does not believe that the laws or rules apply to him and this has been consistent throughout his many hospitalizations here, lacks remorse, and uses threats of manipulation as a way to get what he wants from others. He demonstrates irritability and aggressiveness, impulsivity and failure to plan ahead, and reckless disregard for the safety of himself and others. He also demonstrates consistent irresponsibility as indicated by failure to sustain consistent worker on her financial obligations, all of which indicate ASPD. -Continue 302 involuntary commitment, every 15 minute checks for safety. -Medically necessary private room due to agitation and violent behavior. Patient has been informed that threatening and aggressive behavior will not be excepted, and that he could face criminal charges for this. He does appear to be aware of his behavior and he is using threats of aggression to get what he wants. -Elopement precautions. 07/18 -continue to provide redirection and remind patient of interpersonal boundaries and expectations for appropriate behavior, not threatening or assaulting others. -Continue elopement precautions and private room. -I do believe there is an antisocial component to the patient's behavior and presentation, in addition to his schizoaffective disorder. He does have awareness of his behavior, and freely admits that he uses threats to manipulate others. 07/19 -The patient continues to have difficulty understanding why people cannot understand that when he makes a threat of causing serious physical harm to the person or property of others that he is "only kidding." He continues to insist that they should somehow know that he is "only kidding," even after its been pointed out to him that he is followed through on some of these threats and that people cannot possibly know which threat is real and which is not. -The patient presents with symptoms that are consistent with higher functioning autism spectrum disorder with deficits in social intelligence, information processing, socialemotional reciprocity, difficulty maintaining and understanding relationships, and avoidance of eye contact. 07/20--reviewed. continue MNPR and elopement precautions. 07/22--unchanged, Plan: continue current meds and treatment plan. 07/23 -discharge planning meeting scheduled with [facility] for tomorrow. 07/24 -has been under better behavioral control here, is not threatening others. 07/26 -Today, the patient is able to talk about his Ms. apprehension that he can make a direct threats to harm the person or property of others, while assuming that the other people will realize that he is not seriouseven though, on occasions in the past, he has followed through on a few of the threats. He notes that he has come to realize that he has got to have a better way of expressing anger than to make empty threats and assume people will realize he is not serious. The patient does connect his psychiatric hospitalization with his preadmission behaviors and tells us that he has learned through individual and group therapies here coping strategies that will allow him to dissipate anger without making threats. 07/27 -No threatening or aggressive behavior apparent. 07/28 -Remains behaviorally stable -d/c elopement precautions (2) Schizoaffective disorder, bipolar type: 07/17 -diagnosed during most recent hospitalization here in 10/21/2019, prior to that was diagnosed with bipolar type I. Presentation is complicated by his persistent substance abuse, with chronic cannabis use, and now cocaine as well. -Patient is endorsing delusions of persecution, and demonstrates disorganized thought process. He showed some response to haloperidol in the ER, and will continue 10 mg twice daily with 5 mg as needed dose while gathering additional information about his recent hospitalizations. -Patient initially refused to sign ROIs to obtain records, but has now agreed to sign a release for [facility] hospitalization. He claims he has no current outpatient treatment in place. -File for 303 involuntary commitment with hearing to be held tomorrow. Anticipate that he will require 304 and [facility] referral for long-term inpatient treatment, given his inability to maintain stability or function appropriately in the community for the past 8 months, at least 5 hospitalizations, lack of insight, homelessness, lack of supports/employment/income, health insurance, and ongoing risk to the community given his violent and threatening behavior. 07/18 -now on a 303 involuntary commitment. Continue current medications, gather information toward the need for ongoing involuntary commitment and state hospital referral. -Case complex this patient has no insurance, is not a citizen, may be in the country illegally, and even if he were willing for outpatient treatment (which she is not), would not be able to access it. We have requested a meeting with [facility] to explore options. 07/19 -The patient did agree to apply for temporary medical assistance as an involuntary civil commitment. This change may represent increased trust in the members of the treatment team. -He is willing to acknowledge that he suffers from depression. He started crying when talking about his father's recent , and sobbed each time he tried to tell me about his father and what his father admits to him. 07/20--reviewed. continue current meds and tx plan. 07/23 -currently on Haldol 10 mg twice daily, plan is to transition to Haldol Decanoate prior to discharge. Continue Escitalopram 10 mg daily (started 07/20/2020 for depression). 07/24 -[facility] for [facility] and [facility]ry, and file for 304 (initially inpatient, to convert to [facility] at d/c). Kathleen Harrison will meet with him 07/25. -Patient agreed to transition to Haldol Decanoate, current daily dose is 20 mg, so he will require 200-400 mg decanoate. We will start with the initial loading dose of 100 mg today, and the second 100 mg dose in 3 days. 07/25 - Continue as above - patient made significant progress yesterday with regard to agreeing to outpatient services for continued psychiatric treatment, agreeing to haloperidol decanoate, and was made aware of 304 filing. Pt reportedly seemed to be motivated by desire to avoid state hospitalization. - 304 scheduled for 07/29 - possibility of converting to 304 IOC if progress continues through the weekend and patient remains cooperative with treatment recommendations he has agreed to 07/26 -The patient does allow that he is feeling better in terms of his mood and described himself as being more "calm." He also reports that his sleep has improved considerably. He continues to agree to adhere to outpatient treatment recommendations and notes that it is his understanding that the plan will be for him to be discharged on a 304 outpatient commitment next week, assuming things continue to go well. -There is no evidence of any psychotic features. The patient's affect appears to be euthymic. He has not engaged in any threatening behaviors recently. He has been adherent with medications and expresses an intent to remain adherent following discharge. Patient also reports that he is tolerating haloperidol decanoate without identified adverse effects. 07/27 -Patient to receive second loading dose of Haldol Decanoate today. Oral Haldol can be tapered slowly over the next several weeks as indicated and tolerated. -We will make a Cogentin 1 mg twice daily as needed available if concern for developing dystonia on Haldol 07/28 -It appears last fasting labs were drawn in October 2019. Those results were reviewed and largely unremarkable apart from borderline triglycerides. We will order A1c and fasting lipid panel tomorrow morning for monitoring on the Haldol Decanoate -We will plan to discharge patient with Cogentin due to complaint of restlessness last evening that benefited from the medication and increased risk for EPS in the coming weeks as he acclimates to the Haldol Decanoate (3) Nonadherence to medication: 07/17 -patient was discharged from our unit on [facility] after his last hospitalization, and recommend return to an [facility] given his chronic nonadherence with treatment and lack of insight. 07/19 -The patient insists that he does not have a mental illness, other than "some depression," and he does not feel that he needs to be followed on an outpatient basis by mental health professional, as long as he can be prescribed Lexapro. 07/20--agreed superficially to injectable Haldol today, need to confirm a prescriber/means to pay. 07/25 - Received initial dose of haloperidol decanoate 100mg IM yesterday, next dose scheduled for 100mg IM 07/27 07/26 -The patient reports that he understands that he will be receiving his second dose of haloperidol at decanoate tomorrow, and expresses an intent to adhere to recommendations by taking it. -He continues to voice some uncertainty about the necessity of pharmacologic interventions in his case, but does allow that he is enjoyed certain advantages associated with Haldol decanoate, and he is willing to accept feedback regarding his observed clinical and behavioral improvement in association with the medication. 07/28 -Patient scheduled for 304 hearing tomorrow (4) Cannabis abuse: 07/17 -patient has consistently presented with drug screens positive for cannabis, and reports smoking 2-3 joints daily. This is likely worsening his mood and psychotic symptoms. He lacks any insight into the role his substance use plays, and is unable to engage in motivational interviewing or discussion of the risks of ongoing substance abuse. -Avoid prescription of controlled substances given the high risk of misuse/abuse/negative outcomes. 07/19 -The patient acknowledges that the use of cocaine, marijuana, and alcohol all lower his impulse control and he is more apt to make threats that he describes a s "just kidding" when under the influence of these chemical substances. Yet he cannot seem to connect the fact that he has been hospitalized involuntarily because of the threats, and, therefore, that he needs to stop using the substances. Instead, he says "they help me relax. They are good for me. They do not cause any problem." (As above, the patient externalizes responsibility for his predicament by saying that it is simply a function of the fact that other people do not understand that he expresses himself by making threats without intent to follow through on them. More specifically, he thinks that other people ought to be able to tell when he is kidding and when he is not, and he cannot connect the fact that he sometimes does follow through on the threats with the reality that people that he encounters feel compelled to take him seriously. 07/20--reviewed. 07/26 -Patient says that he is committed not to use cocaine, marijuana and alcohol following discharge. However, he smiles slightly when he makes the statement and avoids eye contact. (5) Cocaine abuse: 07/17 -UDS + cocaine, and patient also reported cocaine use during ER visit in 2019. 07/19 -The patient acknowledges that the use of cocaine, marijuana, and alcohol all lower his impulse control and he is more apt to make threats that he describes as "just kidding" when under the influence of these chemical substances. Yet he cannot seem to connect the fact that he has been hospitalized involuntarily because of the threats, and, therefore, that he needs to stop using the substances. Instead, he says "they help me relax. They are good for me. They do not cause any problem." (As above, the patient externalizes responsibility for his predicament by saying that it is simply a function of the fact that other people do not understand that he expresses himself by making threats without intent to follow through on them. More specifically, he thinks that other people ought to be able to tell when he is kidding and when he is not, and he cannot connect the fact that he sometimes does follow through on the threats with the reality that people that he encounters feel compelled to take him seriously. 07/20--reviewed. Patient is refusing to engage in any discussion or counseling around his substance abuse as says it's his right. 07/26 -Patient says that he is committed not to use cocaine, marijuana and alcohol following discharge. However, he smiles slightly when he makes the statement and avoids eye contact. (6) Nicotine dependence: 07/17 -offer patch/gum for nicotine replacement. 07/20--reviewed. 07/26 -Today, the patient indicates that it is his plan to resume smoking upon discharge. Smoking cessation is encouraged given the fact that he has been tobacco free since admission 10 days ago. Risk Factors Assessment Male: Yes : No Do You Have Access To A Gun?: No Health Problems: No Mental Health Diagnoses: Yes Substance Use Disorders: Yes Previous Attempt: Yes Previous Psychiatric Hospitalization: Yes Hopelessness: No Smoker: Yes Protective Factors Assessment Cheondoism Beliefs: No : No Responsible for Young Children: No Employed: No Stable Relationships: No Supportive Family: No Good Rapport with Provider: No Interval History Identifying Information ZAY MOMIN is a 25-year-old M who currently lives in [place], has a history of schizoaffective disorder bipolar type and treatment nonadherence, and was admitted on 07/16/20 18:59 on a 302 involuntary commitment for erratic and unsafe behavior, disorganized thoughts, physical aggression towards others, and threats to harm others. He is on a 303 involuntary commitment as of 07/18/2020. Chief Complaint "I am ok". Review of Systems Notes Denies akathisia, dystonia, dizziness Sleep Information Total Hours of Sleep: 6.5 Sleep Comments: pt on q-15 minute checks Meal Information Percent Meal Consumed - Breakfast: 100 Percent Meal Consumed - Lunch: 100 Percent Meal Consumed - Dinner: 90 Nutrition Comment: Pt stated that he wants to eat later. Subjective Subjective Patient was seen & assessed and interval progress reviewed with treatment team. Patient received second loading dose of Haldol decanoate yesterday without difficulty. Per staff he has not demonstrated evidence of dystonia or dysarthria. He did have a period of increased anxiety yesterday evening which is reportedly not atypical for him and responded to Ativan prn. He also received a dose of the Cogentin as needed at that time. Has been out of his room more in the past few days. Patient generally without complaints today. Denies concern for side effects associated with Haldol decanoate so far. Reviewed he will need to follow-up with his outpatient provider which is being established for next injection in 28 days and tapering of oral Haldol per discretion of outside provider. He does describe some physical restlessness last evening which she feels was improved with Cogentin. Denies feeling restless or stiff this morning. Reports a good mood today and indicates feeling eager for discharge. He is aware of 304 hearing scheduled for Wednesday. Physical Exam Psychiatric Orientation: alert and cooperative Apperance: + disheveled Eye Contact: good eye contact Motor Behavior: steady gait and station (Again armswing appears very mildly diminished bilaterally); n tremor Speech: normal rate/rhythm/volume of speech Affect: euthymic affect Mood: no depressed mood Thought Process: goal directed thought process Thought Content: no hopelessness Suicidal Thoughts: denies suicidal thoughts Homicidal Thoughts: denies homicidal thoughts Hallucinations: no auditory hallucinations and no visual hallucinations Cognition: language grossly intact Insight: + limited insight Judgement: + limited judgement Vital Signs (Past 24 Hours) Last Vital Signs Temp 36.4 C L 07/28/20 06:51 Pulse 60 07/28/20 06:52 Resp 16 07/28/20 06:51 BP 104/64 07/28/20 06:52 Pulse Ox 98 07/16/20 19:00 Results & Data ([facility]) Current Inpatient Medications Current Inpatient Medications: Current Inpatient Medications Acetaminophen (Acetaminophen 325 Mg Tab) 650 mg PO Q4H PRN PRN Reason: Headache or Minor Fever Stop: 08/15/20 18:57 Last Admin: 07/18/20 11:49 Dose: 650 mg Documented by: Al Hydrox/Mg Hydrox/Simethicone (Aluminum/Magnesium Susp 30 Ml Udc) 30 ml PO Q4H PRN PRN Reason: GI Upset Stop: 08/15/20 18:57 Benztropine Mesylate (Benztropine Mesylate 1 Mg Tab) 1 mg PO BID PRN PRN Reason: EPS Stop: 08/26/20 14:21 Last Admin: 07/27/20 16:38 Dose: 1 mg Documented by: Bismuth Subsalicylate (Bismuth Subsalicylate Liqd 236 Ml) 15 ml PO PRN PRN PRN Reason: Loose Stool Stop: 08/15/20 18:57 Escitalopram Oxalate (Escitalopram Oxalate 10 Mg Tab) 10 mg PO QAM JANET Stop: 08/19/20 08:59 Last Admin: 07/28/20 10:08 Dose: 10 mg Documented by: Haloperidol (Haloperidol 5 Mg Tab) 10 mg PO BID JANET Stop: 08/15/20 20:59 Last Admin: 07/28/20 10:08 Dose: 10 mg Documented by: Haloperidol (Haloperidol 5 Mg Tab) 5 mg PO Q4H PRN PRN Reason: psychosis/agitation Stop: 08/15/20 19:05 Last Admin: 07/18/20 11:10 Dose: 5 mg Documented by: Haloperidol Lactate (Haloperidol Lactate 5 Mg/Ml 1 Ml Vial) 5 mg IM Q4H PRN PRN Reason: acute agitation Stop: 08/15/20 19:07 Hydroxyzine HCl (Hydroxyzine Hcl 25 Mg Tab) 50 mg PO HSZ PRN PRN Reason: Insomnia Stop: 08/15/20 18:57 Hydroxyzine HCl (Hydroxyzine Hcl 25 Mg Tab) 25 mg PO Q4H PRN PRN Reason: Anxiety Stop: 08/15/20 18:57 Lorazepam (Lorazepam 1 Mg Tab) 1 mg PO Q4H PRN PRN Reason: agitation/psychosis Stop: 08/15/20 19:06 Last Admin: 07/27/20 16:03 Dose: 1 mg Documented by: Lorazepam (Lorazepam 2 Mg/Ml Vial (Im Use)) 2 mg IM Q4H PRN PRN Reason: acute agitation Stop: 08/15/20 19:07 Magnesium Hydroxide (Magnesium Hydroxide Susp 30 Ml Udc) 30 ml PO DAILY PRN PRN Reason: Constipation Stop: 08/15/20 18:57 Miscellaneous (Remove Nicoderm Patch) 1 ea N/A 0859 [facility] Stop: 08/16/20 08:58 Last Admin: 07/28/20 09:42 Dose: Not Given Documented by: Nicotine (Nicotine 14 Mg/24 Hr Patch) 14 mg TD QAM [facility] Stop: 08/16/20 08:59 Last Admin: 07/28/20 09:43 Dose: Not Given Documented by: Nicotine Polacrilex (Nicotine Polacrilex 2 Mg Gum) 1 piece MT Q1H PRN PRN Reason: nicotine cravings Stop: 08/17/20 15:38 Last Admin: 07/28/20 12:47 Dose: 1 piece Documented by: Sodium Chloride (Sodium Chloride 0.65% Na Soln 45 Ml ([place])) 1 - 2 sprays NA PRN PRN PRN Reason: Nasal Dryness/Congestion Stop: 08/15/20 18:57 Mental Health & Subst Abuse Tx Psychiatrist Name of Psychiatrist: [facility] Therapist Name of Therapist: [facility]on Ditto Machine Operator Name of Ditto Machine Operator: [employer] - Bill Phone Number for Ditto Machine Operator: [phone] Post Discharge Appointments Contact Information Discharge Discharge Address: [address] [place] [address], [place] [address]
--- NOTE | 2020-07-29 07:49 | Discharge Summary ---
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 preadmission behaviors and tells us that he has learned through individual and group therapies here coping strategies that will allow him to dissipate anger without making threats. 07/27 -No threatening or aggressive behavior apparent. 07/28 -Remains behaviorally stable -d/c elopement precautions (2) Schizoaffective disorder, bipolar type: 07/17 -diagnosed during most recent hospitalization here in 10/21/2019, prior to that was diagnosed with bipolar type I. Presentation is complicated by his persistent substance abuse, with chronic cannabis use, and now cocaine as well. -Patient is endorsing delusions of persecution, and demonstrates disorganized thought process. He showed some response to haloperidol in the ER, and will continue 10 mg twice daily with 5 mg as needed dose while gathering additional information about his recent hospitalizations. -Patient initially refused to sign ROIs to obtain records, but has now agreed to sign a release for [facility]. He claims he has no current outpatient treatment in place. -File for 303 involuntary commitment with hearing to be held tomorrow. Anticipate that he will require 304 and state hospital referral for long-term inpatient treatment, given his inability to maintain stability or function appropriately in the community for the past 8 months, at least 5 hospitalizations, lack of insight, homelessness, lack of supports/employment/income, health insurance, and ongoing risk to the community given his violent and threatening behavior. 07/18 -now on a 303 involuntary commitment. Continue current medications, gather information toward the need for ongoing involuntary commitment and state hospital referral. -Case complex this patient has no insurance, is not a citizen, may be in the country illegally, and even if he were willing for outpatient treatment (which she is not), would not be able to access it. We have requested a meeting with [facility] to explore options. 07/19 -The patient did agree to apply for temporary medical assistance as an involuntary civil commitment. This change may represent increased trust in the members of the treatment team. -He is willing to acknowledge that he suffers from depression. He started crying when talking about his father's recent , and sobbed each time he tried to tell me about his father and what his father admits to him. 07/20--reviewed. continue current meds and tx plan. 07/23 -currently on Haldol 10 mg twice daily, plan is to transition to Haldol Decanoate prior to discharge. Continue Escitalopram 10 mg daily (started 07/20/2020 for depression). 07/24 -Treatment planning meeting: [facility] for therapy and psychiatry, and file for 304 (initially inpatient, to convert to IOC at d/c). Kathleen Harrison will meet with him 07/25. -Patient agreed to transition to Haldol Decanoate, current daily dose is 20 mg, so he will require 200-400 mg decanoate. We will start with the initial loading dose of 100 mg today, and the second 100 mg dose in 3 days. 07/25 - Continue as above - patient made significant progress yesterday with regard to agreeing to outpatient services for continued psychiatric treatment, agreeing to haloperidol decanoate, and was made aware of 304 filing. Pt reportedly seemed to be motivated by desire to avoid state hospitalization. - 304 scheduled for 07/29 - possibility of converting to 304 IOC if progress continues through the weekend and patient remains cooperative with treatment recommendations he has agreed to 07/26 -The patient does allow that he is feeling better in terms of his mood and described himself as being more "calm." He also reports that his sleep has improved considerably. He continues to agree to adhere to outpatient treatment recommendations and notes that it is his understanding that the plan will be for him to be discharged on a 304 outpatient commitment next week, assuming things continue to go well. -There is no evidence of any psychotic features. The patient's affect appears to be euthymic. He has not engaged in any threatening behaviors recently. He has been adherent with medications and expresses an intent to remain adherent following discharge. Patient also reports that he is tolerating haloperidol decanoate without identified adverse effects. 07/27 -Patient to receive second loading dose of Haldol Decanoate today. Oral Haldol can be tapered slowly over the next several weeks as indicated and tolerated. -We will make a Cogentin 1 mg twice daily as needed available if concern for developing dystonia on Haldol 07/28 -It appears last fasting labs were drawn in October 2019. Those results were reviewed and largely unremarkable apart from borderline triglycerides. We will order A1c and fasting lipid panel tomorrow morning for monitoring on the Haldol Decanoate -We will plan to discharge patient with Cogentin due to complaint of restlessness last evening that benefited from the medication and increased risk for EPS in the coming weeks as he acclimates to the Haldol Decanoate -Discharge on 304 involuntary outpatient commitment. -Continue haloperidol decanoate, next injection due 08/23/2020, 200-400 mg IM depending on response. Recommendations are to taper oral haloperidol after 2-3 months on the decanoate, reducing by 25% at weekly intervals. Given his history of poor adherence with oral medications, may consider a 400 mg IM dose every 4 weeks, and no oral overlap. Prescriptions issued for p.o. haloperidol and benztropine as needed. -Follow-up with outpatient psychiatry and therapy at [facility], case management through [facility]. (3) Nonadherence to medication: 07/17 -patient was discharged from our unit on [facility] after his last hospitalization, and recommend return to an [facility] given his chronic nonadherence with treatment and lack of insight. 07/19 -The patient insists that he does not have a mental illness, other than "some depression," and he does not feel that he needs to be followed on an outpatient basis by mental health professional, as long as he can be prescribed Lexapro. 07/20--agreed superficially to injectable Haldol today, need to confirm a pres criber/means to pay. 07/25 - Received initial dose of haloperidol decanoate 100mg IM yesterday, next dose scheduled for 100mg IM 07/27 07/26 -The patient reports that he understands that he will be receiving his second dose of haloperidol at decanoate tomorrow, and expresses an intent to adhere to recommendations by taking it. -He continues to voice some uncertainty about the necessity of pharmacologic interventions in his case, but does allow that he is enjoyed certain advantages associated with Haldol decanoate, and he is willing to accept feedback regarding his observed clinical and behavioral improvement in association with the medication. 07/28 -Patient scheduled for 304 hearing tomorrow (4) Cannabis abuse: 07/17 -patient has consistently presented with drug screens positive for cannabis, and reports smoking 2-3 joints daily. This is likely worsening his mood and psychotic symptoms. He lacks any insight into the role his substance use plays, and is unable to engage in motivational interviewing or discussion of the risks of ongoing substance abuse. -Avoid prescription of controlled substances given the high risk of misuse/abuse/negative outcomes. 07/19 -The patient acknowledges that the use of cocaine, marijuana, and alcohol all lower his impulse control and he is more apt to make threats that he describes as "just kidding" when under the influence of these chemical substances. Yet he cannot seem to connect the fact that he has been hospitalized involuntarily because of the threats, and, therefore, that he needs to stop using the substances. Instead, he says "they help me relax. They are good for me. They do not cause any problem." (As above, the patient externalizes responsibility for his predicament by saying that it is simply a function of the fact that other people do not understand that he expresses himself by making threats without intent to follow through on them. More specifically, he thinks that other people ought to be able to tell when he is kidding and when he is not, and he cannot connect the fact that he sometimes does follow through on the threats with the reality that people that he encounters feel compelled to take him seriously. 07/20--reviewed. 07/26 -Patient says that he is committed not to use cocaine, marijuana and alcohol following discharge. However, he smiles slightly when he makes the statement and avoids eye contact. (5) Cocaine abuse: 07/17 -UDS + cocaine, and patient also reported cocaine use during ER visit in 2019. 07/19 -The patient acknowledges that the use of cocaine, marijuana, and alcohol all lower his impulse control and he is more apt to make threats that he describes as "just kidding" when under the influence of these chemical substances. Yet he cannot seem to connect the fact that he has been hospitalized involuntarily because of the threats, and, therefore, that he needs to stop using the subs tances. Instead, he says "they help me relax. They are good for me. They do not cause any problem." (As above, the patient externalizes responsibility for his predicament by saying that it is simply a function of the fact that other people do not understand that he expresses himself by making threats without intent to follow through on them. More specifically, he thinks that other people ought to be able to tell when he is kidding and when he is not, and he cannot connect the fact that he sometimes does follow through on the threats with the reality that people that he encounters feel compelled to take him seriously. 07/20--reviewed. Patient is refusing to engage in any discussion or counseling around his substance abuse as says it's his right. 07/26 -Patient says that he is committed not to use cocaine, marijuana and alcohol following discharge. However, he smiles slightly when he makes the statement and avoids eye contact. (6) Nicotine dependence: 07/17 -offer patch/gum for nicotine replacement. 07/20--reviewed. 07/26 -Today, the patient indicates that it is his plan to resume smoking upon discharge. Smoking cessation is encouraged given the fact that he has been tobacco free since admission 10 days ago. Mental Health & Subst Abuse Tx Psychiatrist Name of Psychiatrist: [facility] Therapist Name of Therapist: [facility] External Relations Manager Name of External Relations Manager: [employer] - Bill Phone Number for External Relations Manager: [phone] Post Discharge Appointments Smoking Cessation Counseling Tobacco Cessation Medication Prescribed at Discharge: Offered & Pt Refused Contact Information Discharge Discharge Address: [address] [place] [address], [place] [address] Discharge Plan Discharge Items Patient Disposition: Home - Self-Care Reason For Visit: SCHIZOAFFECTIVE DISORDER Discharge Diagnosis: Schizoaffective disorder, bipolar type Activity: Per Instructions section Non-emergency contact: Psychiatrist, Therapist and Well Logger Call non-emergency contact if: you have any medication questions and your symptoms worsen Follow-up/Referrals: PT,DECLINED [Primary Care Provider] - Diet: Regular Addtl Attending Provider Instructions: SPECIAL CARE INSTRUCTIONS: 1. You are being discharged on an involuntary outpatient commitment. See attached paperwork. Follow through with your scheduled aftercare appointments. If unable to keep an appointment, please call to reschedule. 2. Take your medication only as prescribed. Medication should not be changed or stopped without the approval of your doctor. In the event of worsening symptoms or concerns about side effects, contact your doctor immediately. 3. Utilize new healthy coping skills, anger management skills, and stress management skills learned during your hospitalization. Journal feelings and process them with a support person. Identify stressors or situations that may result in relapse, deterioration or inappropriate behaviors and develop a plan to deal with those issues. 4. If your coping skills are ineffective and you are in crisis, contact your outpatient providers for direction. If unable to reach your providers, please call the [facility] CRISIS LINE AT , go to the [facility] walk-in center at [address], [address], [place], or go to the closest Emergency Room. 5. Avoid alcohol and un-prescribed drugs. 6. You have been provided with the Mental Health Advance Directives Pamphlet for your review. AFTERCARE APPOINTMENTS: * Please call your insurance company prior to your scheduled appointment to confirm your aftercare providers are covered. Take your insurance information to your appointments. WHO TO CALL AND WHEN: Medical Emergencies: For questions or emergencies related to your hospital stay, please contact the Inpatient Behavioral Health Unit at [phone]. A animal sitter is on-call 23/11 for the Behavioral Health Unit for emergencies At any time you feel your situation is an emergency, you may also call 911 immediately. Pending Studies at Discharge: No Stand-Alone Forms: My [facility], Smoking Cessation Medications and DC Order Prescriptions: New benztropine 1 mg Tablet 1 mg PO BID PRN (Reason: eps) Qty: 14 RF: 0 escitalopram oxalate 10 mg Tablet 10 mg PO QAM Qty: 30 RF: 0 haloperidol 10 mg tablet 10 mg PO BID Qty: 60 RF: 0 haloperidol decanoate [Haldol Decanoate] 100 mg/mL solution 200 mg IM Q4WK Qty: 2 RF: 0 Discontinued quetiapine 200 mg tablet 200 mg PO HS RF: 0 quetiapine 100 mg tablet 100 mg PO QAM RF: 0 Discharge Orders: Discharge Order (Routine); Ordered 07/29/20 Ordered By: Ariela Jackson Admission Data Admit Date/Time: 07/16/20 18:59 Attending Provider: Ariela Jackson Admit Provider: Ariela Jackson Primary Care Provider: ASHUTOSH MANRIQUEZ Other Interventions: PSY Interdisciplinary Discharge Planning Last Done: 07/29/20 11:05 Coding Level of Care Code 92476 D/C day mgmt > 30 min Diagnoses Behavior disturbance F91.9 Schizoaffective disorder, bipolar type F25.0 Nonadherence to medication Z91.14 Cannabis abuse F12.10 Cocaine abuse F14.10 Nicotine dependence F17.200
[2020-07-29 08:26] LABS: Chol HDL Ratio 5; Cholesterol 171 mg/dl (0-200); HDL Cholesterol 35 mg/dl; LDL Cholesterol Calculated 119 mg/dl; Triglycerides 87 mg/dl (0-150); VLDL Cholesterol 17 mg/dl
[2020-07-29] MEDS: haloperidoL 5 MG TAB PO SCH (08:45)
[2020-07-29] MEDS: ESCITALOPRAM OXALATE 10 MG TAB PO SCH (08:45)
[2020-07-29] MEDS: NICOTINE 14 MG/24 HR PATCH TD SCH (08:45)
[2020-07-29] MEDS: NICOTINE POLACRILEX 2 MG GUM MT PRN ×2 (08:48→11:04)
[2020-07-29 08:59] LABS: Estimated Average Glucose 111 mg/dl; Hemoglobin A1C 5.5 % (4.5-5.6)
[2020-07-29] MEDS: LORazepam 1 MG TAB PO PRN (12:31)
== END 2020-07-29 13:39 | disposition home or self-care (01) | DRG 885 ==
LOC: ED 14:40 → 3S 19:37